=== PATIENT | female | born 1940 | race Caucasian/White ===

== ENCOUNTER 2018-03-24 09:30 | Outpatient (RCR) | payer MEDICARE, SELFPAY ==
--- NOTE | 2018-02-25 08:30 | IE_ITS ---
Date: February 25, 2018 Referring: Dr. 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 Diagnosis: s/p manipulation of right total knee for arthrofibrosis SUBJECTIVE: History of Present Illness: Justine is a 77 year old female s/p manipulation on 02/24/18 secondary to arthrofibrosis via Dr. Quintana. 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 Prior to surgery, pt. walked her dog twice a day around her house and considered herself relatively active. Currently she is doing about half of that walking, and does it with two walking sticks. Pt. has a quad cane, but does not to use it around the house and only takes it outside the house as a precaution. Previous Treatment: Received home health care 2x per week. Outpatient PT 2x week Social: Pt. is retired and lives in a single level home with her and their dog. PMH: s/p tibial tubercle transfer approx. 50 years ago; h/o hip fx 2014, wrist fx 2007 Falls in the last year: No Reported hospitalizations in the last year -Yes, TKR on 12/07/17 Medications: None other than food supplements: glucosamine, calcium, and multi- vitamin. Oxycodone, and Aleve Quality of Life: Good Standardized Measures: [facility]-46.58% OBJECTIVE: Observation: Pt. has a healed incision over the anterior right knee. There is minimal redness or warmth. Gait: Pt. ambulates with quad cane. She demonstrates minimal heel strike, with bilaterally shorted stride length and decreased trunk rotation.. ROM: Pt. demonstrated 10-80 degrees R knee flexion prior to treatment. Post- mobilization, pt. acheives 5-90 degrees R knee flexion. Joint Accessory Motion: Minor restriction in patellofemoral joint mobility in all planes. Marked hypomobility of the tibiofemoral joint Strength: Pt. demonstrates 4+/5 L hip flexion bilat. Quad strength is 4+/5 bilat by MMT, with good functional strength noted with SLR (no extension lag noted). R hip flexion, bilat. knee flexion, ankle dorsiflexion, and ankle plantarflexion are each 5/5 bilaterally. Treatment: IE: [id number] Patient Education: Discussed appropriate treatment planning and goals, which patient is in agreement with. Manual therapy: ([id number]): Today s treatment consisted of evaluation, followed by aggressive mobilization of the right knee. Patient received PROM to the right knee, with manual stretching into both flexion and extension. She received tibiofemoral joint mobs in seated position, grade IV PA and AP. She also received PF joint mobs. Utilized contract-relax techniques and sustained end range stretching, eventually reaching 90 degrees flexion with firm end feel and reports of significant discomfort. Completed 10 minutes of NuStep L1 for rhythmic ROM. Ended with 10 minutes of cryotherapy to the right knee post session. _X_ Provided skilled manual cues to facilitate proper muscle recruitment and/or movement pattern: Pt. needed verbal and tactile cueing to demonstrate proper technique for her HEP. Direct treatment time: 60 minutes Total treatment time: 70 minutes ASSESSMENT: Patient is a 77 year-old female referred for PT services with the diagnosis of s /p R TKA post manipulation on 02/24/18. Patient presents with clinical signs and symptoms consistent with referring diagnosis, with significant limitations in her ROM. She currently demonstrates the following impairment level findings: - Decreased R knee ROM - pain - Decreased jt. accessory motion of the R patellofemoral and tibiofemoral joint - Gait deficits Impairments are contributing to the following functional limitations: - Difficulty walking > two blocks - Unable to reciprocally manage stairs - Unable to squat Patient is assessed as: Low [id number], based on the following: History: (list): 77-year old female, 5 weeks s/p right TKA with marked ROM restrictions and continued deficits in functional mobility. Examination: (list): See above for functional limitations and impairments. Presentation: Stable Decision-Making: Low complexity Disability based on AMPAC 46.58% Patient requires skilled PT intervention to remediate the above functional limitations to return to: __X_ Premorbid level of function __X__ Return to full functional mobility __X__ Improve QOL Prognosis: Good G-Codes (fill in modifier after appropriate code): Patient's primary functional limitation is in the category of: __[X]__ Mobility - walking and moving around : [id number], based on [facility] Projected goal: __[X]__ Mobility - walking and moving around: [id number], to allow for continued age related deficits. KX modifier to be utilized as justified by above documentation for necessity of continued Physical Therapy intervention to attend to functional deficits which have not been fully remediated as they approach their Medicare cap. STG: __4__ weeks. 1. Increase knee flexion ROM to >105 degrees to allow for improved stair management 2. Improve overall function as demonstrated by LEFS <40% deficit 3. Increase knee extension to 0 degrees to diminish gait deficits LTG: __8__ weeks. 1. Return to premorbid level of function. 2. Return to full, pain-free, functional mobility. 3. Independent with self-maintenance program. 4. Improve overall function as noted by LEFS score <20% deficit PLAN: Patient to be seen daily x 1 week, adjusting frequency of visits per patient symptoms and response to treatment. Treatment to include: [X] Manual therapy [id number]: Patient to receive aggressive mobilization of the right knee, including joint mobs to the PF and tibiofemoral joints, manual stretching, and PROM. Will likely incorporate use of IASTM to address soft- tissue dysfunction and flexibility, as well. [X] Therapeutic exercise 31769: Patient to be instructed in a progressive therex program for both open and closed chain strengthening, as well as self- mobilization techniques. Will consider introduction of aquatic therapy for both strengthening and gait training as she progresses out post-operatively. Thank you for this referral. Please do not hesitate to contact me with any questions or concerns regarding this patient's plan of care. Janel Nelson,MPT
--- NOTE | 2018-02-26 08:30 | PTTR_ITS ---
DATE: 02/26/18 SUBJECTIVE: Indicated she is really trying to keep her right knee moving. OBJECTIVE: Manual therapy: ([id number]). Mobilization of right pat-fem and tib-fem jts while in seated and supine position. Utilized hold relax with stretching into flexion and extension. AROM pre mobilization was approximately 13 degrees extension to 85 degrees flexion. Post mobilization patient was able to achieve AAROM of 5 degrees extension to 98 degrees flexion. Performed soft tissue stretching of hamstrings, IT bands and quad / hip flexors while in modified Jeff test position for 3 to 5 reps each for 20 - 30 seconds. Therapeutic procedures ([id number]). * x HEP review: Reviewed self stretching of calf, hamstrings and use of IT band stretching. Did 5 minutes on NuStep prior to mobilization. * x Provided skilled instruction in proper exercise performance * x Provided skilled manual cues to facilitate proper muscle recruitment and/ or movement pattern * Cryotherapy x 10 minutes to right knee while in supine with leg on wedge pillow. Direct treatment time: 50 minutes Total treatment time: 60 minutes
--- NOTE | 2018-02-27 14:25 | PTTR_ITS ---
DATE: 02/27/18 SUBJECTIVE: Pt reports feeling stiff, swollen, although not in much pain. OBJECTIVE: Manual therapy: (68843d6). With pt short-sitting EOB, AP/PA glides to tibiofemoral joint. Overpressure into flexion. Traction and quad/hamstring METs applied to facilitate flexion. Flexion measured at 94. Pt moved to supine , patella mobilized into all planes. Hamstring stretch applied. STM, petrissage to quads to calm them down. Traction, overpressure into extension. Approximately -5 in extension. 90/90 position to continue progress into flexion. Ends with 8 minutes NuStep for ROM, 10 minutes ice pack (no charge). Direct treatment time: 45 minutes Total treatment time: 63 minutes
--- NOTE | 2018-02-28 11:46 | PTTR_ITS ---
DATE: 02/28/18 SUBJECTIVE: Gricelda was initially seen by Elodia Espitia PTA today. She then completed 10 minutes on the stationary bike, prior to being seen by myself for further mobilization. She states that she is using a mini bike several times throughout the day in an effort to improve her motion. She has discontinued her quadruped stretch, stating she's afraid that it will damage her left knee. OBJECTIVE: Manual therapy: ([id number]): Began with assistance on stationary bike x 5 minutes. Patient performed 5 minutes of rocking, then received assistance into full revolutions, which she tolerated for an additional 5 minutes. She then received aggressive stretching into flexion, using contract-relax techniques and sustained stretching. She received patella mobilizations and grade III AP tibiofemoral joint mobs. She eventually tolerated 102 degrees flexion We reviewed stair stretch, where patient tolerates only about 85 degrees independently. Direct treatment time: 30 minutes Total treatment time: Additional time spent with Elodia Espitia PTA, as well as 5 unattended minutes on stationary bike.
--- NOTE | 2018-02-28 12:14 | PTTR_ITS ---
DATE: 02/28/18 SUBJECTIVE: Pt reports feeling extremely stiff today. OBJECTIVE: Manual therapy: ([id number]). With pt short sitting EOB, AP/PA glides to tibiofemoral joint. Stretch into knee flexion. METs to quad and hamstring to facilitate extension. Pt transitioned to prone, dynamic PA mobilization through knee flexion range. Pt transitioned to supine, 90/90 knee flexion applied. Seated, knee flexion measured at 97 degrees. Pt into supine, patella mobilized into all planes. Overpressure applied into knee extension. Pt still lacking approx 5 degrees extension. Pt went to Bike for ROM. After our session, pt was seen by Isa Dickinson DPT. Please see her note for specifics. Direct treatment time: 30 minutes Total treatment time: 30 minutes
--- NOTE | 2018-03-01 14:58 | PTTR_ITS ---
DATE: 03/01/18 OBJECTIVE: Co-treatment with Kandis Loja PTA. Please see her note for specifics. Manual therapy: ([id number]). Further mobilize right knee into flexion. Perform AP/PA glides in seated position and in loose packed position in supine. Perform oscillations at end ranges of flexion and prolong stretching where she tolerates 90 degrees. In supine apply patellar glides in all planes and overpressure stretching into knee extension to -5 degrees. Manual hamstring stretching applied. Pt finished with ice and elevation x 10 minutes. Pt notes being quite sore after today's session. Direct treatment time: 15 minutes Total treatment time: 15 minutes Elodia Espitia PTA
--- NOTE | 2018-03-01 15:43 | PTTR_ITS ---
DATE: 03/01/18 SUBJECTIVE: Pt reports that she is sore and stiff today. OBJECTIVE: Co Treatment with EJ Sharp Manual therapy: ([id number]). Pt received mobilization to the knee while seated with legs over plinth into knee flexion utilizing muscle energy techniques to increase knee flexion ROM. Pt was able to complete 85 degrees knee flexion. Pt was resisting throughout her ROM and required cueing to relax. Therapeutic procedures (08277s). * X Other: Pt completed 10 min on the stationary bike. Direct treatment time: 15 Total treatment time: 30
--- NOTE | 2018-03-02 15:15 | PTTR_ITS ---
DATE: 03/02/18 SUBJECTIVE: Pt reports feeling very sore today. Before start of session, used NuStep x5 minutes to warm up knee joint, reports that it feels a little looser now than when she walked in. OBJECTIVE: Manual therapy: ([id number]). With pt seated EOB, AP/PA glides to tibiofemoral joint. Stretch with overpressure into knee flexion. Pt turned to supine, AP/ PA glides to tibiofemoral joint in loose packed position. 90/90 stretch into knee flexion. Pt returned to short-sitting, stretched into knee flexion with METs applied to hamstrings and quads, measured at 90 degrees flexion with hard end feel and notable discomfort. Pt spent 5 minutes on stationary bike for ROM purposes. Returned to supine for mobilization into extension, including joint unloading and overpressure. Pt was -8 degrees knee extension today. Direct treatment time: 35 minutes Total treatment time: 35 minutes
--- NOTE | 2018-03-03 10:01 | PTTR_ITS ---
DATE: 03/03/18 SUBJECTIVE: Justine states that she is continuing to feel stiff. She feels that the weather is a big contributor to her symptoms. She has not been performing stationary biking as we discussed at her previous visits and continues to use the mini-peddler as she feels that this better mobilizes her knee. She has discontinued her quadruped stretching as well, and is instead performing stair stretch and sustained stretching into extension. She has questions today regarding alternative treatments such as hypnosis, etc... OBJECTIVE: Manual therapy: ([id number]).Today's treatment consisted of aggressive mobilization of the R knee. Pt begins at about 85 degrees of knee flexion after warming up on the NuStep.She was mobilized into flexion with sustained stretching, incorporating patella mobilizations and grade IV AP tibiofemoral joint mobilizations. She also received manual quad stretching in prone position.Back in supine, utilized contract/relax techniques, where I am eventually able to stretch her to 103 degrees actively. Pt is then able to flex to about 85 degrees. She ended with stationary biking, where she requires manual assist to get full revolutions. She is able to continue this independently x 7 min. Direct treatment time: 30 min Total treatment time: 40 min Assessment/Plan: Pt is continuing to have a significantly tight knee. I attempted call to Dr. Quintana's office, although he is out of the office until next week. Will send a copy of this note over and re-attempt to call next week. SS/fw
--- NOTE | 2018-03-06 14:25 | PTTR_ITS ---
DATE: 03/06/18 SUBJECTIVE: Gricelda stating that she continues to be quite sore. She blames the humidity for her discomfort today. OBJECTIVE: Manual therapy: ([id number]). Pt completes six minutes of Nustep prior to being seen by me today. She receives aggressive mobilization into flexion. Perform AP/ PA mobilizations in seated position, prolong stretching into end ranges of flexion, utilizing MET's to increase ROM. Perform quad stretching in prone position and then stretch her in the 90/90 position for knee flexion. Provide patellar glides in all planes with good mobility noted. Perform brief distal quad desensitization massage followed by further stretching into knee flexion to 98 degrees and end range discomfort. Ends with bicycle x 10 minutes and receipt of unattended ice and elevation. Direct treatment time: 30 minutes Total treatment time: 60 minutes Elodia Espitia, WIG DRESSER
--- NOTE | 2018-03-08 11:00 | PTTR_ITS ---
DATE: 03/08/18 SUBJECTIVE: Gricelda states that her knee continues to feel stiff. She does not feel as though she is making significant progress and hopes to avoid PT next week when she will have her daughter visiting. She does have questions about treatment she read about on line including electric stim, massage, etc. . . Manual therapy: ([id number]). Patient received aggressive mobilization of the R knee. She begins with 85 degrees flexion with firm end feel, and significant guarding. She received patella mobilizations and grade 3 AP and PA tibiofemoral joint mobilizations where she continues to have significant joint restriction noted. Utilized contract/relax techniques and sustained stretching into flexion, also performed manual quad stretching in prone where she tolerates only 90 degrees. She then received IASTM for down regulation through the quad followed by further mobilization into flexion with use of contract/ relax techniques. She eventually tolerates 110 degrees with significant end range pain and firm end feel. Direct treatment time: 45 mins Total treatment time: 55 mins 10 mins spent in supervised biking. SS/dl
--- NOTE | 2018-03-10 09:00 | PTTR_ITS ---
DATE: 03/10/18 SUBJECTIVE: Gricelda states that her knee is feeling significantly looser. She feels like she's turning a corner. She came in early and did 8 minutes of stationary biking with full forward revolutions prior to her appointment today. OBJECTIVE: Manual therapy: ([id number]): Gricelda begins with 106 degrees of knee flexion. She received aggressive mobilization, beginning with gentle stretching into flexion , followed by patella mobs through all planes, grade IV AP tibiofemoral mobs in loose packed position, and sustained quad stretching in prone. She received IASTM for down-regulation of the quads on the right, followed by further stretching. Utilized contract-relax techniques, where she eventually tolerates 112 degrees. She was then stretched into extension, ending with -5. Direct treatment time: 30 minutes Total treatment time: 38 minutes
--- NOTE | 2018-03-13 15:19 | PTTR_ITS ---
DATE: 03/13/18 SUBJECTIVE: Justine reports that she has been very busy around her home this weekend getting ready for company to come. She has been standing, cleaning and moving around and she felt a little sore from this. OBJECTIVE: Manual therapy: ([id number]). Begin with pt in the seated position and perform tibiofemoral joint mobilizations, stretching into knee flexion utilizing muscle energy techniques. In supine provide IASTM down regulation through the quadriceps on the (R) followed by patellar glides in all planes. Stretch her into the 90/90 position into knee flexion, transition back to the seated position for continued stretching into flexion where she tolerates 108*. In supine I can get her to -5* of knee extension. Pt did perform the bicycle x 10 minutes prior to seeing me making full revolutions. She ends with ice x 10 minutes. Direct treatment time: 30 minutes Total treatment time: 50 minutes
--- NOTE | 2018-03-17 14:47 | PTTR_ITS ---
DATE: 03/17/18 SUBJECTIVE: Pt stating she is doing well today. She has been stretching her knee over the last few days off she has had. She did finally make it around on her stationary bike at home. OBJECTIVE: Pt performs 10 minutes of stationary cycling prior to seeing me today making full revolutions. Manual therapy: ([id number]). AP/PA tibiofemoral joint mobs performed right LE. IASTM down regulation techniques performed to the quadriceps in a stretched and slack position. Overpressure stretching, MET's into knee flexion in seated and supine positions. She easily tolerates 100 degrees and with overpressure stretching can achieve 105 degrees with hard end feel and end range discomfort. Patellar glides performed and light stretching into extension to -5 degrees. Direct treatment time: 30 minutes Total treatment time: 40 minutes Elodia Espitia, REDYE HAND
--- NOTE | 2018-03-20 11:03 | PTTR_ITS ---
DATE: 03/20/18 SUBJECTIVE: Justine notes that she is sick of her knee hurting her all the time. She states she was stiff getting up this morning and has had a hard time loosening up this morning. OBJECTIVE: Pt performs stationary bicycle x 10 minutes prior to seeing me today making full revolution. Manual therapy: ([id number]). Initial R knee AROM measurements: 10-90 degrees Perform AP/PA tibiofemoral glides, MET's to the quads and hamstrings. IASTM down regulation performed to the quadriceps followed by extensive stretching into knee flexion in the seated and supine positions. Patellar glides performed and overpressure stretching into knee extension. Post mobilization PROM: 5-102 degrees right knee with hard end feel. Direct treatment time: 30 minutes Total treatment time: 40 minutes Elodia Espitia, DATA ENTRY ANALYST
--- NOTE | 2018-03-22 09:21 | PN_ITS ---
DATE: 03/22/18 REFERRING: Dr. 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 She's been participating in PT interventino 2-3x/week as her schedule allows. LEFS: 52% deficit, with patient commenting N/A on multiple activities with the written comment Want to keep my other knee. OBJECTIVE: Posture: In static standing, patient lacks 5 degrees TKE on the right. Gait: (indicate right or left deficits): Continued antalgia, lacking right TKE , with associated limitations in heel strike on the right. ROM: Mobilizes to -3 degrees extension and up to 110 degrees flexion. Joint accessory motion: * x Hypomobile (indicate joint/direction): right tibiofemoral and patellofemoral joints * End feel: x Capsular Hard Empty Crepitus Soft tissue Treatment: Please see treatment note from Elodia Espitia PTA. No additional treatment was provided on this date. ASSESSMENT: Patient receiving aggressive mobilization 2-3x/week. Since decreasing visit frequency, she has tolerated treatments much better and has made more significant gains in ROM. Will continue with manual therapies for an additional 2 weeks, then begin weaning patient back down in frequency. x Patient requires continued skilled Physical Therapy intervention to remediate the above functional limitations to return to: * x Premorbid level of function. * x Full functional mobility. * x Return to work demands. * x Improve quality of life. * Other (indicate): [] G-Codes (add modifier after appropriate code): Patient's primary functional limitation is in the category of: * x Mobility - walking and moving around : [id number] Present status determined by (SM or other justification): LEFS score of 52% deficit Projected goal: [id number] KX modifier to be utilized as justified by above documentation for necessity of continued Physical Therapy intervention to attend to functional deficits which have not been fully remediated as they approach their Medicare cap. ST weeks. 1. Increase knee flexion ROM to >105 degrees to allow for improved stair management (met) 2. Improve overall function as demonstrated by LEFS <40% deficit (Progressing toward) 3. Increase knee extension to 0 degrees to diminish gait deficits (not met) LTG: __8__ weeks. 1. Return to premorbid level of function. (progressing toward) 2. Return to full, pain-free, functional mobility. (progressing toward) 3. Independent with self-maintenance program. (progressing toward) 4. Improve overall function as noted by LEFS score <20% deficit (progressing toward) Goal progression: (copy/paste from IE or last PN). PLAN: Patient to continue treatment, 2-3 x per week, for 2 weeks,then begin weaning down in frequency, with need for additional 6 weeks of intervention as we progress toward an independent self-management program.
--- NOTE | 2018-03-22 10:30 | PTTR_ITS ---
DATE: 03/22/18 SUBJECTIVE: Pt stating she is doing okay today. She feels like she is walking better each day but her knee continues to get sore with very little activity. OBJECTIVE: Pt performs 10 minutes of stationary cycling prior to seeing me today. Manual therapy: ([id number]). TF joint mobilizations performed in seated position. Overpressure stretching into knee flexion with oscillations at end ranges to approx. 105 degrees with end range discomfort and hard end feel. PF joint mobs, overpressure stretching into knee extension to -5 degrees. Knee flexion stretching in both 90/90 position and PKB position. Direct treatment time: 30 minutes Total treatment time: 40 minutes Elodia Espitia, SOLID GLASS ROD DOWEL MACHINE OPERATOR
--- NOTE | 2018-03-24 12:20 | PTTR_ITS ---
DATE: 03/24/18 SUBJECTIVE: Pt notes being sore and achy. She states she had a hard time sleeping last night due to discomfort in her knee. She did end up taking a Tylenol this morning and she is not sure if this has helped yet. OBJECTIVE: Pt completes 10 minutes of stationary cycling making full revolutions prior to seeing me today. Manual therapy: ([id number]): Seated TF joint mobs, MET's and prolong overpressure stretching into knee flexion to 102 degrees, hard end feel. Prone knee flexion/quad stretching to approx. 90 degrees. PF joint mobs in all planes, overpressure stretching into knee extension to -5 degrees. Desensitization massage provided distal quadriceps. Encouraged continued ROM/stretching exercises at home. Direct treatment time: 30 minutes Total treatment time: 40 minutes Elodia Espitia, SCALE AGENT
== END 2018-03-24 23:59 | disposition home or self-care (01) ==
LOC: PT 09:30
PROVIDERS: PCP Family Medicine; Referring Provider Orthopaedic Surgery; Visit Provider Orthopaedic Surgery
DX: Z47.1 Aftercare following joint replacement surgery (principal); Z96.651 Presence of right artificial knee joint
CPT/HCPCS: 97140; 97161; 97530

== ENCOUNTER → 2018-05-09 10:25 | Outpatient (BNVA) | payer MEDICARE, OTHER, SELFPAY | PROVIDERS: Visit Provider Orthopaedic Surgery | DX: Z47.1 Aftercare following joint replacement surgery (principal); Z96.651 Presence of right artificial knee joint | CPT/HCPCS: 99211; 99213 ==

== ENCOUNTER → 2018-05-30 10:38 | Outpatient (BNVA) | payer MEDICARE, OTHER, SELFPAY | PROVIDERS: PCP Family Medicine; Visit Provider Orthopaedic Surgery | DX: M17.12 Unilateral primary osteoarthritis, left knee (principal) | CPT/HCPCS: 20610; 99211; 99213; J7325 ==

== ENCOUNTER → 2018-12-05 11:17 | Outpatient (BNVA) | payer MEDICARE, OTHER, SELFPAY | PROVIDERS: PCP Family Medicine; Referring Provider Family Medicine; Visit Provider Orthopaedic Surgery | DX: M17.12 Unilateral primary osteoarthritis, left knee (principal); Z96.651 Presence of right artificial knee joint | CPT/HCPCS: 20610; 99211; 99212; J7325 ==

== ENCOUNTER → 2019-07-02 14:34 | Outpatient (BNVA) | payer MEDICARE, OTHER, SELFPAY | PROVIDERS: PCP Family Medicine; Referring Provider Family Medicine; Visit Provider Student in an Organized Health Care Education/Training Program | DX: M17.12 Unilateral primary osteoarthritis, left knee (principal); Z96.651 Presence of right artificial knee joint | CPT/HCPCS: 99214 ==

== ENCOUNTER 2021-04-07 20:13 | Emergency (ER) | payer MEDICARE, OTHER, SELFPAY ==
--- NOTE | 2021-04-07 20:00 | DI.CT_ITS ---
Exam(s) CT HEAD CERVICAL SPINE WO EXAM: CT HEAD CERVICAL SPINE WO CLINICAL HISTORY: fall, etoh, hit head posterior scalp. TECHNIQUE: Imaging Protocol: Axial computed tomography images with coronal and sagittal reformatted images were created and reviewed COMPARISON: No exams were available for comparison FINDINGS: CT Head: Ventricles and Extra axial spaces: Normal in size and morphology for the patient's age. Hemorrhage: None. Cerebral parenchyma: No evidence of acute territorial infarct. There are areas of decreased attenuat ion in the white matter most consistent with chronic microvascular ischemic change. Midline shift: None. Brainstem/Cerebellum: Normal. Calvarium: Normal. Visualized Paranasal sinuses/Mastoids: There is mild mucosal thickening in the right maxillary sinus. The remaining visualized paranasal sinuses and mastoid air cells are clear. Soft Tissues: Unremarkable. CT Cervical Spine: Bones: No acute fracture or subluxation. There are degenerative changes seen in the cervical spine. Soft Tissues: Unremarkable. Lung Apices: Clear. Thyroid gland: Unremarkable. IMPRESSION: 1. No acute intracranial process. 2. No acute fracture or subluxation in the cervical spine. RADIATION DOSE DELIVERED: 1,206.9mGy.cm Total DLP DATA REPOSITORY: All CT scans at this facility are submitted to the National Radiology Data Registry (NRDR) Dose Index Registry (DIR) with the [employer] (ACR). RADIATION OPTIMIZATION: All CT scans at this facility use at least one of these dose optimization te chniques: automated exposure control; mA and/or kV adjustment per patient size (includes targeted exa ms where dose is matched to clinical indication); or iterative reconstruction.
[2021-04-07 20:10] VITALS: BP 171/95; PULSE 68; RESP 18; TEMP 36.5; O2SAT 95
--- NOTE | 2021-04-07 20:13 | ED.GENADUL_ITS ---
Discharge Plan Disposition Patient Disposition: HOME Condition: Good Discharge Details Clinical Impression: Fall, Laceration of scalp Primary Care Provider: Ramone Dennison ED Provider: Diego Dunn Home Meds and New Rx's Prescriptions: Continued calcium carb and citrate-vitD3 [Citracal-D3 Slow Release] 1 EACH tablet extended release 1 ea PO BID RF: 0 multivitamin [Daily Multi-Vitamin] 1 EACH tablet 1 tab PO DAILY RF: 0 glucosam-chond ph-xzpdll-ot ac 1 EACH capsule 2 cap PO DAILY RF: 0 aspirin 325 MG tablet 325 mg PO PRN PRNRF: 0 Discharge Instructions Instructions: Staple Care (ED) Additional Instructions: Your CAT scan shows no evidence of bleed or fracture of your head or neck. We did place a single staple in your scalp. This will need to be removed in 7 to 10 days. You can come back here to have it removed. Please keep your head dry for the next 48 hours after which you can wash gently with soap and water. If you notice any worsening of your symptoms, or any new symptoms such as vomiting, diarrhea, fever, chills, shortness of breath, chest pain, numbness, weakness, or fainting , please return immediately to the emergency department for reevaluation. Please follow up with your primary care provider as soon as possible for reassessment and reevaluation. As always, it was a pleasure participating in your medical care today. Referrals: Ramone Dennison [Primary Care Provider] - Medical Decision Making Patient is a 80-year-old female with no significant past medical history except for a patellar replacement years ago, but does take a daily full dose aspirin, presents today for fall after being intoxicated. Patient states she was drinking with her this evening she fell back and hit her head. She recalls the event. She denies any pain anywhere, including her chest, arms, hips, or legs or head or neck for that matter. No other complaints at this time. No other modifying factors. Patient was brought in by EMS and was placed in a c-collar. Physical exam is notably unremarkable for any bony tenderness whatsoever, no midline C-spine thoracic or lumbar spine tenderness, no focal neurologic deficits. Patient does demonstrate evidence of a small 2 cm hematoma versus laceration. We will clean the area to evaluate for need for sutures or gera. We will get a CT scan of the head neck to evaluate for evidence of fracture although I feel this unlikely as there is no tenderness, however the exam is slightly obfuscated by mild intoxication. 9:[address] scan has returned negative for acute process per virtual radiology of the head neck. Repeat neurologic exam is unremarkable. Patient does have evidence of a small bruise on her left arm, but this is nontender otherwise. This was seen on secondary survey. No other signs of significant trauma. The small laceration on her scalp was stapled with a single staple. Patient tolerated this well. Patient stable with no neurologic deficits. Patient stable for discharge to the care of her . Discussed red flags which to return. I have extensively reviewed the treatment plan and discharge instructions with the patient and their family. I have addressed all patient concerns at this time. The patient and family was made aware of what symptoms to monitor for that would warrant a return to the emergency department. Discussed the plan with the mindy ent and family, they demonstrate verbal understanding and agreement with our assessment and plan at this time. The documentation in this chart was dictated using [employer] dictation software. Please excuse any dictation errors. FINDINGS: Brain: Normal. No hemorrhage. Unremarkable white matter. No mass effect. Cerebral ventricles: No ventriculomegaly. Paranasal sinuses: Visualized sinuses are unremarkable. No fluid levels. Mastoid air cells: Visualized mastoid air cells are well aerated. Bones/joints: Unremarkable. No acute fracture. Soft tissues: Unremarkable. IMPRESSION: No acute intracranial abnormality. FINDINGS: Bones/joints: No acute fracture. Normal alignment. Discs/Spinal canal/Neural foramina: No significant disc protrusion. No severe spinal canal stenosis. No significant neural foraminal narrowing. Multilevel degenerative disc disease Lungs: Lung apices are normal. Soft tissues: Unremarkable. IMPRESSION: No acute findings. Thank you for allowing us to participate in the care of your patient. Dictated and Authenticated by: Elke Degroot MD 04/07/2021 8:48 PM Eastern Time ([place] & [place]) HPI General Date/Time Provider Initiated Documentation: 04/07/21 20:49 . HPI Narrative: Patient is a 80-year-old female with no significant past medical history except for a patellar replacement years ago, but does take a daily full dose aspirin, presents today for fall after being intoxicated. Patient states she was drinking with her this evening she fell back and hit her head. She recalls the event. She denies any pain anywhere, including her chest, arms, hips, or legs or head or neck for that matter. No other complaints at this time. No other modifying factors. Patient was brought in by EMS and was placed in a c-collar. Related Data Home Medications Medication Instructions Recorded Confirmed glucosam-chond de-qctves-ec ac 2 cap PO DAILY 12/31/14 04/07/21 multivitamin [Daily Multi-Vitamin] 1 tab PO DAILY 12/31/14 04/07/21 calcium carb and citrate-vitD3 1 ea PO BID 04/08/15 04/07/21 [Citracal-D3 Slow Release] aspirin 325 mg PO PRN PRN 11/28/17 04/07/21 Allergies Allergy/AdvReac Type Severity Reaction Status Date / Time No Known Allergies Allergy Unverified 04/07/21 20:17 Review of Systems All systems reviewed & are unremarkable except as noted in HPI and below PFSH Surgical History Replacement of total knee joint (12/07/17) RIGHT/DR. SHAFER s/p manipulation 02/24/2018 Social History Smoking/Tobacco Use Status: Former Tobacco Use Smoking risk assessment performed?: Yes Drug use: Never Exam Narrative Exam Narrative: 1.Const: Well-nourished, Well-developed, appearing stated age 2.Eyes: PERRL, no conjunctival injection, and symmetrical lids. 3.ENT: Atraumatic external nose and ears. Moist MM. Neck: Symmetric, trachea midline, No thyromegaly. There is no evidence of raccoon eyes, larios sign, CSF rhinorrhea, mastoid tenderness, cranial crepitus, hemotympanum, exophthalmos, or hyphema. Patient demonstrates intact dentition with no signs of tooth avulsion or fracture, no signs of jaw deformity, no evidence of a LeFort's fracture, with an intact palate, nose and orbital region. There is no evidence of a nasal septal hematoma. No proptosis. Jaw closes symmetrically. Airway is clear. 4.CVS: +S1/S2, No murmurs or gallops. Peripheral pulses 2+ and equal in all extremities. Brisk capillary refill in all extremities. 5.RESP: Unlabored respiratory effort. Clear to auscultation bilaterally. No wheezes rales or rhonchi 6.GI: Soft, Nontender/Nondistended, No hepatosplenomegaly. No guarding or rebound. 7.MSK: Normocephalic/Atraumatic, Extremities w/o deformity or ttp No cyanosis or clubbing, Normal movement of all extremities, no midline cervical thoracic or lumbar spine tenderness. No chest wall tenderness. No tenderness palpation of the hip or pelvis. Patient demonstrates excellent movement of the upper and lower extremities. 8.Skin: Warm, Dry. Small 2 cm linear small abrasion versus small laceration of the posterior scalp. 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 Sensation grossly intact, no focal neurologic deficits. 10.Psych: (AAO) x3. Appropriate mood and affect, but mildly intoxicated
[2021-04-07 20:43] LABS: Abs Immature Grans 0.04 10^3/uL (0.0-0.06); Absolute Basophil Count 0.04 10^3/uL (0.0-0.2); Absolute Eosinophil Count 0.05 10^3/uL (0.0-0.7); Absolute Lymphocyte Count 2.49 10^3/uL (1.2-3.4); Absolute Monocyte Count 0.68 10^3/uL (0.1-0.8); Absolute Neutrophil Count 4.73 10^3/uL (1.2-6.7); Basophils % 0.5; Eosinophils % 0.6; HGB 13.1 g/dL (11.2-15.7); Immature Grans % 0.5; MCH 32.4 pg (27.0-33.0); MCHC 33.6 % (32.0-36.0); MCV 96.5 fL (80-95); MPV 9.6 fL (8.0-11.0); Monocytes % 8.5; Neutrophils % 58.9; Nucleated RBC 0 %; Platelet Count 225 10^3/uL (130-400); RBC 4.04 10^6/uL (3.93-5.22); RDW 11.8 % (11.7-14.6); RDW-SD 41.7 fL; WBC 8.03 10^3/uL (4.4-10.8)
--- NOTE | 2021-04-07 20:48 | DI.VRAD_ITS ---
PROCEDURE INFORMATION: Exam: CT Head Without Contrast Exam date and time: 04/07/2021 8:13 PM Age: 80 years old Clinical indication: Injury or trauma; Blunt trauma (contusions or hematomas); Consciousness not specified; Injury date: 04/07/21; Injury details: Fall, ETOH, hit head posterior scalp TECHNIQUE: Imaging protocol: Computed tomography of the head without contrast. Radiation optimization: All CT scans at this facility use at least one of these dose optimization techniques: automated exposure control; mA and/or kV adjustment per patient size (includes targeted exams where dose is matched to clinical indication); or iterative reconstruction. COMPARISON: No relevant prior studies available. FINDINGS: Brain: Normal. No hemorrhage. Unremarkable white matter. No mass effect. Cerebral ventricles: No ventriculomegaly. Paranasal sinuses: Visualized sinuses are unremarkable. No fluid levels. Mastoid air cells: Visualized mastoid air cells are well aerated. Bones/joints: Unremarkable. No acute fracture. Soft tissues: Unremarkable. IMPRESSION: No acute intracranial abnormality. PROCEDURE INFORMATION: Exam: CT Cervical Spine Without Contrast Exam date and time: 04/07/2021 8:13 PM Age: 80 years old Clinical indication: Injury or trauma; Blunt trauma (contusions or hematomas); Consciousness not specified; Injury date: 04/07/21; Injury details: Fall, ETOH, hit head posterior scalp TECHNIQUE: Imaging protocol: Computed tomography images of the cervical spine without contrast. Radiation optimization: All CT scans at this facility use at least one of these dose optimization techniques: automated exposure control; mA and/or kV adjustment per patient size (includes targeted exams where dose is matched to clinical indication); or iterative reconstruction. COMPARISON: No relevant prior studies available. FINDINGS: Bones/joints: No acute fracture. Normal alignment. Discs/Spinal canal/Neural foramina: No significant disc protrusion. No severe spinal canal stenosis. No significant neural foraminal narrowing. Multilevel degenerative disc disease Lungs: Lung apices are normal. Soft tissues: Unremarkable. IMPRESSION: No acute findings. Dictated and Authenticated by: Elke Degroot MD. Ordering:KHALIF Cortez MD
[2021-04-07 21:10] VITALS: BP 142/71; PULSE 71; RESP 18; O2SAT 96
== END 2021-04-07 21:16 | disposition home or self-care (01) ==
LOC: ER 04-08 00:01
PROVIDERS: Emergency Provider Student in an Organized Health Care Education/Training Program; PCP Family Medicine
DX: S01.01XA Laceration without foreign body of scalp, initial encounter (principal); W01.190A Fall on same level from slipping, tripping and stumbling with subsequent striking against furniture, initial encounter
CPT/HCPCS: 36415; 99284; 70450; 72125; 85025; 99283

== ENCOUNTER 2022-06-04 16:29 | Inpatient (IN) | payer MEDICARE, OTHER, SELFPAY ==
[2022-06-04] VITALS (12 sets, daily range): BP systolic 154–178; BP diastolic 74–86; PULSE 61–104; RESP 14–21; TEMP 36.3; O2SAT 92–98
--- NOTE | 2022-06-04 16:30 | RT.EKG_ITS ---
APPROVED REPORT Exam: Resting ECG Reason for Exam: syncope Patient Location: E HR:74 bpm ECG Measurements Heart Rate 74 AXIS IA 168 P 7 QRSd 91 QRS -38 QT 441 T 65 QTc 491 Conclusion Sinus rhythm...normal P axis, V-rate 60- 99 Left axis deviation...QRS axis (-30,-90) sinus rhythm, left axis
--- NOTE | 2022-06-04 16:45 | DI.CT_ITS ---
Exam(s) CT HEAD WO EXAM: CT HEAD WO CLINICAL HISTORY: Fall, Syncope,. TECHNIQUE: Imaging Protocol: Axial computed tomography images with coronal and sagittal reformatted images were created and reviewed COMPARISON: CT CT HEAD CERVICAL SPINE WO from 04/07/2021 FINDINGS: There are no skull fractures. There is no fluid in the visualized paranasal sinuses. There is no evidence of intracranial hemorrhage, mass effect, or shift of midline structures. There are no extra-axial fluid collections. The ventricles are not enlarged or shifted and there is no blo od within the ventricular system nor within the basal cisterns. IMPRESSION: No acute intracranial findings on this noninfused CT scan of the brain. No significant change compared to prior CT scan of 04/07/2021. RADIATION DOSE DELIVERED: 720.56mGy.cm Total DLP DATA REPOSITORY: All CT scans at this facility are submitted to the National Radiology Data Registry (NRDR) Dose Index Registry (DIR) with the [employer] (ACR). RADIATION OPTIMIZATION: All CT scans at this facility use at least one of these dose optimization te chniques: automated exposure control; mA and/or kV adjustment per patient size (includes targeted exa ms where dose is matched to clinical indication); or iterative reconstruction.
--- NOTE | 2022-06-04 16:54 | ED.GENADUL_ITS ---
Discharge Plan Disposition Patient Disposition: [facility] INPATIENT Condition: Serious Discharge Details Clinical Impression: Elevated troponin, Syncope Admit Date/Time: 06/04/22 21:24 Admit Provider: Kwabena Treadwell Attending Provider: Kwabena Treadwell Primary Care Provider: Ramone Dennison ED Provider: Miguelina Pastor Discharge Data Discharge Date/Time-TO BE ENTERED AT DEPARTURE: 06/04/22 22:09 Medical Decision Making 81-year-old female presents via EMS with chief complaint of fall unknown if this is a syncopal episode however patient reports being dizzy and confused earlier today while at the grocery store. She does not remember falling she reports that she may have been feeding the dog. She does report room spinning prior to the fall. EMS report left sided weakness which is since resolved upon arrival. Work-up ordered including cardiac work-up including EKG, head CT. EKG was reviewed by [Dr. Krishna Ma] ER attending, old EKG available for review no STEMI please see official report. CBC shows no leukocytosis, CMP largely within normal limits glucose is 140, alk phos 40 initial troponin within normal limits. Urinalysis is pending. Patient did get up to the bedside commode however we were not able to obtain a urine sample at this time. CT head is negative for any acute abnormality at this time. Patient remains hemodynamically stable alert and oriented. 2020: Repeat troponin came back positive at 86 we will redraw to confirm. Repeat EKG is unchanged at this time. Patient reevaluation, she reports that upon getting into the wheelchair she was continuing to get dizzy. This does make me suspect cardiac in origin is the reason for her falls. 324 mg of chewable aspirin ordered. Patient is willing to stay in the hospital if needed. 2037: Spoke with Dr. Treadwell who is on for hospitalist regarding patient case and details. He will confirm bed availability and call back regarding acceptance. 2041: Dr. Treadwell accepts patient for admission, Discussed plan with patient, verbalized understanding and is in agreement with plan. Medical Records Medical records reviewed: Yes I reviewed the patient's medical records. Imaging Data Radiologic Study: Imaging: CT Scan Radiologist's impression: EXAM: ? CT HEAD WO CLINICAL HISTORY: ? Fall, Syncope,. ? TECHNIQUE:? Imaging Protocol: Axial computed tomography images with coronal and sagittal reformatted images were created and reviewed COMPARISON:? CT CT HEAD ? CERVICAL SPINE WO from 04/07/2021 FINDINGS: There are no skull fractures. There is no fluid in the visualized paranasal sinuses. There is no evidence of intracranial hemorrhage, mass effect, or shift of midline structures.? There are no extra-axial fluid collections.? The ventricles are not enlarged or shifted and there is no blood within the ventricular system nor within the basal cisterns. IMPRESSION: No acute intracranial findings on this noninfused CT scan of the brain. No significant change compared to prior CT scan of 04/07/2021. Lab Data Lab results reviewed: Yes I reviewed the patient's lab results. Labs: Laboratory Tests Range/Units 06/04/22 06/04/22 17:05 17:05 WBC (4.4-10.8) 10^3/uL 7.19 RBC (3.93-5.22) 10^6/uL 3.96 Hgb (11.2-15.7) g/dL 13.0 Hct (36.0-46.0) % 39.1 MCV (80-95) fL 99 H MCH (27.0-33.0) pg 32.8 MCHC (32.0-36.0) % 33.2 RDW (11.7-14.6) % 11.7 Plt Count (130-400) 10^3/uL 230 MPV (8.0-11.0) fL 9.7 Immature Gran % 0.3 Neutrophils % 65.6 Lymphocytes % 25.5 Monocytes % 7.4 Eosinophils % 0.8 Basophils % 0.4 Nucleated RBC % (0.0-0.3) % 0.0 Absolute Neutrophils (1.2-6.7) 10^3/uL 4.72 Absolute Lymphocytes (1.2-3.4) 10^3/uL 1.83 Absolute Monocytes (0.1-0.8) 10^3/uL 0.53 Absolute Eosinophils (0.0-0.7) 10^3/uL 0.06 Absolute Basophils (0.0-0.2) 10^3/uL 0.03 Sodium (136-145) mmol/L 138 Potassium (3.5-5.1) mmol/L 3.5 Chloride (98-107) mmol/L 101 Carbon Dioxide (21.0-32.0) mmol/L 28.7 Anion Gap (3-11) mmol/L 8.3 BUN (7-18) mg/dL 13 Creatinine (0.55-1.02) mg/dL 0.7 Est GFR (CKD-EPI 2020) (mL/min/1.73m2) 87.92 Glucose (74-106) mg/dL 140 H Calcium (8.5-10.1) mg/dL 8.9 Magnesium (1.8-2.4) mg/dL 1.9 Total Bilirubin (0.2-1.0) mg/dL 0.8 AST (15-37) U/L 22 ALT (14-59) U/L 16 Alkaline Phosphatase (46-116) U/L 40 L Troponin I (<or=60) ng/L < 50 Total Protein (6.4-8.2) g/dL 7.4 Albumin (3.4-5.0) g/dL 4.3 HPI General Mode of arrival: EMS . Date/Time Provider Initiated Documentation: 06/04/22 16:35 . Limitations to Documentation: no limitations . Information obtained by: patient, EMS, RN notes reviewed and old records reviewed . HPI Narrative: 81-year-old female presents to the ER via EMS with a chief complaint of fall. EMS reports left-sided weakness initially which has resolved since. Patient has a small nonsuturable laceration to her left lower lip and some swelling. She is unsure if she became dizzy prior to the fall. She is alert and oriented upon arrival and verbal slightly confused. She is talking about being confused earlier today while at the supermarket. She reports that when she came to the grocery store she could not find her . She reports feeling like the room was spinning prior to her fall. She denies any neck pain denies any chest pain shortness of breath, nausea vomiting diarrhea or problems urinating. Does have a past medical history of knee replacement, osteoarthritis. She does take aspirin daily. No focal neurodeficits noted on exam. Related Data Home Medications Medication Instructions Recorded Confirmed gfsdqpiijz-rvmfuvntpj-kzklagqn-hyalur 2 cap PO DAILY 12/31/14 06/04/22 ac 375 mg-300 mg-175 mg-2 mg cap multivitamin (Daily Multi-Vitamin 1 tab PO DAILY 12/31/14 06/04/22 tablet) calcium carb,cit ER 600 mg-vit D3 1 ea PO BID 04/08/15 06/04/22 12.5 mcg (500 unit) tablet,ext.rel (Citracal-D3 Slow Release) diphenhydramine 25 2 tab PO HS PRN 06/04/22 06/04/22 mg-acetaminophen 500 mg tablet (Tylenol PM Extra Strength) Allergies Allergy/AdvReac Type Severity Reaction Status Date / Time No Known Allergies Allergy Unverified 06/04/22 20:48 General Stated Complaint: Dizzy/Sync LINDSEY: 2 Review of Systems All systems reviewed & are unremarkable except as noted in HPI and below Constitutional Constitutional: Denies headache(s) ENT Ears, Nose, Mouth, and Throat: Reports dizziness and Denies headache(s) Cardiovascular Cardiovascular: Reports syncope Integumentary/Breasts Skin/Breast: Reports wounds Neurologic Neurologic: Reports dizziness, Reports syncope, Denies headache(s) and Reports localized weakness (Resolved) PFSH All Active Problems (Updated 06/04/22 @ 20:50 by Miguelina Pastor NP) Fall (Acute) Laceration of scalp (Acute) Elevated troponin (Acute) Syncope (Chronic) Arthritis of left knee (Chronic) Osteoarthritis of knee (Acute 06/04/14) H/O surgical procedure (Chronic) a. cataract surgery b. 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 SHAFER s/p manipulation 02/24/2018 Social History Smoking/Tobacco Use Status: Former Tobacco Use Smoking risk assessment performed?: Yes Alcohol Intake: current Alcohol Intake frequency: 0-2 drinks per day Drug use: Never Substance use type: does not use Do you feel safe at home: Yes Do you feel safe in your relationship?: Yes Exam Narrative Exam Narrative: Constitutional: Alert and oriented x3. Appears stated age. Normal body habitus. Head: Normocephalic, no trauma. Eyes: Pupils PERRL, Red reflex noted, EOM's intact. Eyelids symmetrical without lesions, discharge, or swelling. ENT: Bilateral TM's WNL, External ear normal to inspection, no mastoid TTP, swelling, or erythema, Nasal turbinates WNL, no nasal discharge. Normal dentition, Posterior pharynx WNL, no exudate. Left lower lip swelling with a small laceration with slow venous oozing. No intraoral trauma noted. Chest: RRR, Normal S1, S2, distal pulses intact. Resp: Lungs clear to auscultation bilaterally, no wheezes, rales, or rhonchi. Abdomen: Soft, non-distended, Normoactive bowel sounds all 4 quads. Musculoskeletal: Unable to assess gait, 5/5 strength to all four extremities. Skin: No suspicious rashes or lesions. Capillary refill less than 2 sec. Neurologic: Cranial nerves II-XII intact. Alert and oriented x 3. Motor: No deficits noted. Sensory: Intact bilaterally all 4 extremities. Reflexes: DTR's intact bilaterally..No pronater drift Hematologic/Lymphatic: No ecchymosis, no lymphadenopathy. [facility] Head images: 1. Small superficial laceration and surrounding soft tissue swelling. Dermabond applied, bleeding controlled. Course Vital Signs Vital signs: Vital Signs Temperature 36.3 C L 06/04/22 16:30 Pulse 74 06/04/22 16:30 Respiratory Rate 16 06/04/22 16:30 Blood Pressure 178/86 H 06/04/22 16:30 Pulse Oximetry 93 06/04/22 16:30 Temperature 36.3 C L 06/04/22 16:30 Temperature Source Oral 06/04/22 16:30 Pulse 74 06/04/22 16:30 Respiratory Rate 16 06/04/22 16:30 Respiratory Effort Non-Labored 06/04/22 16:43 Respiratory Depth Normal 06/04/22 16:43 Respiratory Pattern Normal 06/04/22 16:43 Blood Pressure 178/86 H 06/04/22 16:30 Pulse Oximetry 93 06/04/22 16:30 Oxygen Delivery Method Room Air 06/04/22 16:30 Oxygen Flow Rate 0 06/04/22 16:30 Pain Level 0 06/04/22 16:30
[2022-06-04 17:16] LABS: Abs Immature Grans 0.02 10^3/uL (0.0-0.06); Absolute Basophil Count 0.03 10^3/uL (0.0-0.2); Absolute Eosinophil Count 0.06 10^3/uL (0.0-0.7); Absolute Lymphocyte Count 1.83 10^3/uL (1.2-3.4); Absolute Monocyte Count 0.53 10^3/uL (0.1-0.8); Absolute Neutrophil Count 4.72 10^3/uL (1.2-6.7); Basophils % 0.4; Eosinophils % 0.8; HCT 39.1 % (36.0-46.0); Immature Grans % 0.3; Lymphocytes % 25.5; MCH 32.8 pg (27.0-33.0); MCHC 33.2 % (32.0-36.0); MCV 99 fL (80-95); MPV 9.7 fL (8.0-11.0); Monocytes % 7.4; Neutrophils % 65.6; Platelet Count 230 10^3/uL (130-400); RBC 3.96 10^6/uL (3.93-5.22); RDW 11.7 % (11.7-14.6); RDW-SD 42.6 fL; WBC 7.19 10^3/uL (4.4-10.8)
[2022-06-04 17:28] LABS: ALT 16 U/L (14-59); AST 22 U/L (15-37); Albumin 4.3 g/dL (3.4-5.0); Alkaline Phosphatase 40 U/L (46-116); Anion Gap 8.3 mmol/L (3-11); BUN 13 mg/dL (7-18); Bilirubin, Total 0.8 mg/dL (0.2-1.0); CO2 28.7 mmol/L (21.0-32.0); CREATININE 0.7 mg/dL (0.55-1.02); Calcium 8.9 mg/dL (8.5-10.1); Chloride 101 mmol/L (98-107); Estimated GFR 87.92 (mL/min/1.73m2); Glucose 140 mg/dL (74-106); Magnesium 1.9 mg/dL (1.8-2.4); Potassium 3.5 mmol/L (3.5-5.1); Sodium 138 mmol/L (136-145); Total Protein 7.4 g/dL (6.4-8.2); Troponin I < 50 ng/L (<or=60)
--- NOTE | 2022-06-04 17:56 | DI.VRAD_ITS ---
PROCEDURE INFORMATION: Exam: CT Head Without Contrast Exam date and time: 06/04/2022 5:28 PM Age: 81 years old Clinical indication: Injury or trauma; Blunt trauma (contusions or hematomas) and other: Fall, syncope, TECHNIQUE: Imaging protocol: Computed tomography of the head without contrast. COMPARISON: CT HEAD CERVICAL SPINE WO 04/07/2021 8:35 PM FINDINGS: Brain: No acute intracranial hemorrhage. No mass effect or midline shift. Knight-white matter differentiation is preserved. Moderate volume loss, consistent with age-related cerebral atrophy. Cerebral ventricles: No ventriculomegaly. Paranasal sinuses: Visualized sinuses are unremarkable. No fluid levels. Mastoid air cells: Visualized mastoid air cells are well aerated. Bones/joints: Unremarkable. No acute fracture. Soft tissues: Unremarkable. IMPRESSION: No acute intracranial abnormality. Dictated and Authenticated by: Sulaiman Cook MD. Ordering:SOFYA Mcintyre MD
[2022-06-04 19:13] LABS: Bilirubin Negative (Negative); Blood Negative (Negative); Clarity Clear (Clear); Glucose Negative (Negative); Ketones Negative (Negative); Leukocyte Esterase Negative (Negative); Nitrite Negative (Negative); Specific Gravity 1.015 (1.005-1.025); Urobilinogen 0.2 EU/dL (Up TO 0.2)
--- NOTE | 2022-06-04 19:15 | RT.EKG_ITS ---
APPROVED REPORT Exam: Resting ECG Reason for Exam: repeat trop Patient Location: E HR:63 bpm ECG Measurements Heart Rate 63 AXIS NM 100 P 7 QRSd 86 QRS -34 QT 495 T -18 QTc 507 Conclusion Sinus rhythm...normal P axis, V-rate 60- 99 Probable LVH with secondary repol abnrm...multiple LVH criteria Inferior infarct, old...Q >35mS, II III aVF Prolonged QT interval...QTc >500mS sinus rhythm, left axis
[2022-06-04 20:10] LABS: Troponin I 86 ng/L (<or=60)
[2022-06-04] MEDS: Aspirin 81 MG CHEW 324 MG CH (20:36)
[2022-06-04 20:57] LABS: Troponin I 95 ng/L (<or=60)
[2022-06-04] MEDS: Normal Saline 1,000 ML 125 ML IV (21:15)
[2022-06-04 21:36] LABS: Lab Add On Test DONE
[2022-06-04 21:43] LABS: Source Nasal/Nares
[2022-06-04 21:51] LABS: Hemoglobin A1C 5.4 % (<5.7)
[2022-06-04] MEDS: Enoxaparin 40 MG/0.4 ML SYR SC (22:00)
[2022-06-04 22:19] LABS: COVID-19 PCR Negative (Negative)
--- NOTE | 2022-06-04 23:41 | W.PM.HP.N ---
Date of service: 06/04/22 Time of Service: 23:41 Assessment and Plan Assessment and plan (1) Syncope: Status: Chronic Assessment and plan: Trending troponins. Telemetry. Has had both SVT and nonsustained VTach. Continue beta blockers. Echo ordered. (2) Elevated troponin: Status: Acute Assessment and plan: ?etiology - [facility] [place] cardiology did not feel this was ACS (felt EKG changes were present on the original EKG as well). Cardiology consult. Continue cardiac monitoring. Echocardiogram. Anticipate an outpatient stress test. (3) Nonsustained supraventricular tachycardia: Status: Acute Assessment and plan: Continue metoprolol. Continue telemetry monitoring. Echo with preserved LVEF. (4) Fall: Status: Acute Assessment and plan: PT c/s. (5) QT prolongation: Status: Resolved Assessment and plan: Monitor and follow lytes. Benadryl d/c'ed. Continue cardiac monitoring. . (6) DVT prophylaxis: Status: Deleted Assessment and plan: SC enoxaparin (7) Discharge planning issues: Status: Deleted Assessment and plan: Full code History of Present Illness History of Present Illness Chief Complaint: Confusion, fall. Narrative: Chen is a 81 yo female with a PMH of previous hip fx, knee arthritis. She presented to the ED after a fall at home that occurred after she noted the room spinning. Earlier in the day she was in the grocery store with her and felt dizzy and confused and couldn't find her in the store. EMS reported possibly left-sided weakness initially that had resolved by the time she was in the ED. She denied any CP/palpitations, shortness of air, N/V/diarrhea/abd pain. EKG was unremarkable. CT head negative for acute findings. Initial troponin neg. Repeat was 86. Repeat EKG w/o changes. CBC unremarkable. Lytes and creatinine unremarkable. She did feel dizzy when transferring to the wheelchair. She was given a full strength aspirin. Review of Systems All systems reviewed & are unremarkable except as noted in HPI and below PFSH All Active Problems Lip injury (Acute) Hypomagnesemia (Acute) Acute electrocardiogram changes (Acute) Nonsustained supraventricular tachycardia (Acute) Acute electrocardiogram changes (Acute) Fall (Acute) Laceration of scalp (Acute) Elevated troponin (Acute) Syncope (Chronic) Arthritis of left knee (Chronic) Osteoarthritis of knee (Acute 06/04/14) H/O surgical procedure (Chronic) a. cataract surgery b. 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 SHAFER s/p manipulation 02/24/2018 Social History Smoking/Tobacco Use Status: Former Tobacco Use Smoking risk assessment performed?: Yes Alcohol Intake: current Alcohol Intake frequency: 0-2 drinks per day Drug use: Never Substance use type: does not use Do you feel safe at home: Yes Do you feel safe in your relationship?: Yes Meds Allergies and Home Medications Allergies Allergy/AdvReac Type Severity Reaction Status Date / Time No Known Allergies Allergy Unverified 06/04/22 20:48 Home Medications Medication Instructions Recorded Confirmed Type zoqailrkbb-xniwwdgdhw-thbxpook-hyalur 2 cap PO DAILY 12/31/14 06/04/22 History ac 375 mg-300 mg-175 mg-2 mg cap multivitamin (Daily Multi-Vitamin 1 tab PO DAILY 12/31/14 06/04/22 History tablet) calcium carb,cit ER 600 mg-vit D3 1 ea PO BID 04/08/15 06/04/22 History 12.5 mcg (500 unit) tablet,ext.rel (Citracal-D3 Slow Release) diphenhydramine 25 2 tab PO HS PRN 06/04/22 06/04/22 History mg-acetaminophen 500 mg tablet (Tylenol PM Extra Strength) aspirin 81 mg tablet,delayed 81 mg PO DAILY #30 tabs 06/08/22 Rx release metoprolol tartrate 25 mg tablet 12.5 mg PO BID #30 tabs 06/08/22 Rx potassium chloride 20 mEq 40 meq PO DAILY #30 tabs 06/08/22 Rx tablet,extended release(part/cryst) (Klor-Con M) Exam Narrative Exam Narrative: Pleasant and conversant. Const General: cooperative and no acute distress Nutritional Appearance: thin Orientation: alert and oriented x3 HENMT Head: normocephalic and atraumatic Mouth: lip abnormal (small superficial laceration of upper lip; dermabond applied in ED) Neck Neck: normal visual inspection and full ROM Resp Effort & Inspection: normal respiratory effort Auscultation: clear to auscultation bilaterally Cardio Rate: regular rate Rhythm: regular rhythm Heart Sounds: S1 normal and S2 normal GI Inspection: non-distended Palpation: soft and nontender Neuro General: no focal motor deficits Cranial Nerves: facial strength normal Cognition: normal cognition Speech: speech normal Extrem General: no pedal edema and no calf tenderness Results Labs Result diagrams: 06/06/22 05:16 06/07/22 05:40 Labs: Laboratory Results - last 24 hr 06/04/22 06/04/22 06/04/22 17:05 17:05 17:05 WBC 7.19 RBC 3.96 Hgb 13.0 Hct 39.1 MCV 99 H MCH 32.8 MCHC 33.2 RDW 11.7 Plt Count 230 MPV 9.7 Immature Gran % 0.3 Neutrophils % 65.6 Lymphocytes % 25.5 Monocytes % 7.4 Eosinophils % 0.8 Basophils % 0.4 Nucleated RBC % 0.0 Absolute Neutrophils 4.72 Absolute Lymphocytes 1.83 Absolute Monocytes 0.53 Absolute Eosinophils 0.06 Absolute Basophils 0.03 Sodium 138 Potassium 3.5 Chloride 101 Carbon Dioxide 28.7 Anion Gap 8.3 BUN 13 Creatinine 0.7 Est GFR (CKD-EPI 2020) 87.92 Glucose 140 H Hemoglobin A1c 5.4 Calcium 8.9 Magnesium 1.9 Total Bilirubin 0.8 AST 22 ALT 16 Alkaline Phosphatase 40 L Troponin I < 50 Total Protein 7.4 Albumin 4.3 Urine Color Urine Clarity Urine pH Ur Specific [place] Urine Protein Urine Ketones Urine Blood Urine Nitrite Urine Bilirubin Urine Urobilinogen Ur Leukocyte Esterase Urine Glucose COVID-19 Source SARS-CoV-2 (PCR) 06/04/22 06/04/22 06/04/22 18:50 19:42 20:30 WBC RBC Hgb Hct MCV MCH MCHC RDW Plt Count MPV Immature Gran % Neutrophils % Lymphocytes % Monocytes % Eosinophils % Basophils % Nucleated RBC % Absolute Neutrophils Absolute Lymphocytes Absolute Monocytes Absolute Eosinophils Absolute Basophils Sodium Potassium Chloride Carbon Dioxide Anion Gap BUN Creatinine Est GFR (CKD-EPI 2020) Glucose Hemoglobin A1c Calcium Magnesium Total Bilirubin AST ALT Alkaline Phosphatase Troponin I 86 H* 95 H* Total Protein Albumin Urine Color Yellow Urine Clarity Clear Urine pH 7.0 Ur Specific [place] 1.015 Urine Protein Negative Urine Ketones Negative Urine Blood Negative Urine Nitrite Negative Urine Bilirubin Negative Urine Urobilinogen 0.2 Ur Leukocyte Esterase Negative Urine Glucose Negative COVID-19 Source SARS-CoV-2 (PCR) 06/04/22 21:40 WBC RBC Hgb Hct MCV MCH MCHC RDW Plt Count MPV Immature Gran % Neutrophils % Lymphocytes % Monocytes % Eosinophils % Basophils % Nucleated RBC % Absolute Neutrophils Absolute Lymphocytes Absolute Monocytes Absolute Eosinophils Absolute Basophils Sodium Potassium Chloride Carbon Dioxide Anion Gap BUN Creatinine Est GFR (CKD-EPI 2020) Glucose Hemoglobin A1c Calcium Magnesium Total Bilirubin AST ALT Alkaline Phosphatase Troponin I Total Protein Albumin Urine Color Urine Clarity Urine pH Ur Specific [place] Urine Protein Urine Ketones Urine Blood Urine Nitrite Urine Bilirubin Urine Urobilinogen Ur Leukocyte Esterase Urine Glucose COVID-19 Source Nasal/Nares SARS-CoV-2 (PCR) Negative Last Vital Signs Temp 36.3 C L 06/04/22 16:30 Pulse 104 H 06/04/22 20:01 Resp 17 06/04/22 21:40 BP 154/77 H 06/04/22 20:01 Pulse Ox 92 06/04/22 21:40
[2022-06-05] VITALS (17 sets, daily range): BP systolic 106–162; BP diastolic 57–93; PULSE 57–79; RESP 14–21; TEMP 36.1–37.6; O2SAT 92–96
[2022-06-05 01:29] LABS: Troponin I 99 ng/L (<or=60)
[2022-06-05 06:38] LABS: Anion Gap 5.8 mmol/L (3-11); BUN 8 mg/dL (7-18); CO2 29.2 mmol/L (21.0-32.0); CREATININE 0.6 mg/dL (0.55-1.02); Calcium 8.5 mg/dL (8.5-10.1); Calculated LDL 97 mg/dL (<100); Chloride 103 mmol/L (98-107); Cholesterol 197 mg/dL (<200); Estimated GFR 91.25 (mL/min/1.73m2); Glucose 96 mg/dL (74-106); HDL Cholesterol 89 mg/dL (40-60); Potassium 3.1 mmol/L (3.5-5.1); Sodium 138 mmol/L (136-145); Triglyceride 57 mg/dL (<150)
--- NOTE | 2022-06-05 08:15 | RT.EKG_ITS ---
APPROVED REPORT Exam: Resting ECG Reason for Exam: elevated troponin, near syncope Patient Location: I HR:72 bpm ECG Measurements Heart Rate 72 AXIS LA 168 P 30 QRSd 93 QRS -5 QT 514 T 262 QTc 563 Conclusion Sinus rhythm...normal P axis, V-rate 50- 99 Abnormal T, consider ischemia, diffuse leads...T <-0.20mV, ant/lat/inf Prolonged QT interval...QTc >500mS
--- NOTE | 2022-06-05 08:29 | INITIAL_ITS ---
- If Service Date Differs Date of service: 06/05/22 Time of Service: 08:29 Care Management Initial Assess REASON FOR HOSPITALIZATION:: Vertigo, Elevated Troponin. PAST MEDICAL HISTORY/PAST SURGICAL HISTORY:: All Active Problems: Fall (Acute), Laceration of scalp (Acute), Elevated troponin (Acute), Syncope (Chronic), Arthritis of left knee (Chronic),. Osteoarthritis of knee (Acute 06/04/14), H/O surgical procedure (Chronic): a. cataract surgery, b. unspecified knee and wrist surgery, and Closed left hip fracture (Acute 12/31/14). Surgical History: Replacement of total knee joint (12/07/17) - RIGHT/DR. SHAFER - s/p manipulation 02/24/2018. PREVIOUS FUNCTIONAL STATUS/SOCIAL/FAMILY SUPPORTS:: Justine lives with her , Rob, in [place], [place]. 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 She has one daughter who resides in [place] and 3 step-daughters in [place]. Justine also has a son who just before his 49th birthday from a blood cancer. Justine drives and is independent at baseline. CURRENT FUNCTIONAL STATUS:: Justine is sitting up in bed when CM comes to meet with her. Her , Rob, is present in the room. She is pleasant and talkative. She shares both her mother and grandmother had heart problems and says she shouldn't be surprised that she does to. ADVANCE DIRECTIVES:: On file; Rob Hernandez is appointed as Health Care Agent. Has patient been provided with info about the portal/API?: Yes Did the patient sign up for the portal?: No CODE STATUS:: Full Code INSURANCE COVERAGE / FINANCIAL ISSUES:: [employer] (underwritten by [employer]) and Medicare. CURRENT HOME/COMMUNITY SERVICES/EQUIPMENT:: No home/community services. Patient ambulates independently but has access to a cane, walker, and wheelchair. Her home is equipped with a walk-in bathtub and grab bars. PRIMARY CARE PHYSICIAN:: Ramone Dennison DO. POTENTIAL DISCHARGE NEEDS:: Follow up appointments with PCP and cardiology. PATIENT/FAMILY EDUCATION NEEDS:: Review of discharge instructions including medications and limitations; discuss Ask Me Three. ANTICIPATED BARRIERS TO DISCHARGE:: None identified at this time. TRANSPORTATION:: To be determined by disposition. PLAN:: Justine will have an ultrasound of her heart on Tuesday. The results of the ultrasound will dictate whether she is transferred to [facility] [place] or remains at [facility] for the course of her treatment. Once she is medically cleared, she will discharge home with no services and will follow up with her PCP, cardiology and plan of care as instructed. She will be driven home by her via private vehicle when ready. CM will continue to support Justine and any discharge pl anning needs.
--- NOTE | 2022-06-05 08:43 | NUR.NOTE ---
RN takes this patient over from Jennifer RN, third ICU nurse since said nurse needed to go to OB to handle an emergent situation that will have the OB patient being admitted to ICU.Nursing Note:
--- NOTE | 2022-06-05 08:49 | NUR.NOTE ---
RN sends SNPP message to respiratory therapist to conduct EKG.Nursing Note:
[2022-06-05] MEDS: Potassium Chloride 20 MEQ TABCR PO (08:55)
--- NOTE | 2022-06-05 09:28 | NUR.NOTE ---
Respiratory therapist is taking patient's EKG.Nursing Note:
--- NOTE | 2022-06-05 09:30 | NUR.NOTE ---
White board report given to .Nursing Note:
[2022-06-05] MEDS: POTASSIUM CHLORIDE 20 MEQ/100 ML BAG 50 MEQ IVPB ×2 (10:37→12:44)
--- NOTE | 2022-06-05 10:38 | PT.INNT ---
Date of service: 06/05/22 Time of Service: 10:38 PT Notes Visit Reasons: Vertigo, Elevated Troponin IE on hold due to infarct, per MD communication.
--- NOTE | 2022-06-05 10:53 | NUR.NOTE ---
RN attempts placement of second IV without success.Nursing Note:
[2022-06-05 11:30] LABS: Lab Add On Test DONE
[2022-06-05] MEDS: Aspirin E.C. 81 MG TABEC PO (11:58)
--- NOTE | 2022-06-05 12:09 | W.PM.PROGNOT ---
Date of Service Date of service: 06/05/22 Time of Service: 12:09 Assessment and Plan Assessment and plan (1) Syncope: Status: Chronic Assessment and plan: Given borderline eleveated troponin, EKG changes, concern for underlying ischemia and cardiogenic origin of syncope. Will continue cardiac monitoring, ensure electrolytes are repleted. Consider neurology consult, per cardiology recommendations. (2) Elevated troponin: Status: Acute Assessment and plan: ?etiology - cardiology did not feel this was ACS (felt EKG changes were present on the original EKG as well). Will obtain echocardiogram. Continue cardiac monitoring. (3) Acute electrocardiogram changes: Status: Acute Assessment and plan: Discussed [facility] cardiology, who did not feel this was an ACS. Will continue cardiac monitoring. Obtain echo on Tuesday. (4) Fall: Status: Acute Assessment and plan: PT c/s. (5) Hypokalemia: Status: Acute Assessment and plan: Replete; recheck in am (6) QT prolongation: Status: Acute Assessment and plan: Monitor and replete lytes. D/c benadryl. Continue cardiac monitoring. Cardiology at [facility] [place] doubted that the patient's description of fluttering in her chest was c/w description of a ventricular arrhythmia. (7) DVT prophylaxis: Status: Acute Assessment and plan: SC enoxaparin (8) Discharge planning issues: Status: Acute Assessment and plan: Full code Continues to require hospitalization Subjective Subjective Interval history since last seen: Ms Hernandez states that she has not had any dizziness, chest discomfort, shortness of breath or nausea since arriving to the hospital. She does describe a feeling of fluttering in her chest while in the car yesterday. She states that she sometimes gets this feeling at home. Case was discussed with [facility] [place] [place] cardiology: recommend continued observation on cardiac tech, no addition of heparin or plavix, obtaining echo on Tuesday, and calling back tomorrow to follow up on the patient. Cardiology feels that the patient's EKG changes (T waves inversions) may have been there before - question of lead placement. They do not recommend a stress test at this time. They do not feel that transferring her to a tertiary care facility would result in a different workup this weekend, but to call back tomorrow to discuss the case again. They do not feel that the QTc is as long as reported - closer to 500 ms. It is also felt that the patient's description of dizziness and chest fluttering are not consistent with a ventricular arrhythmia. Exam Narrative Exam Narrative: General: Pleasant female who looks younger than her stated age, A&Ox3, NAD HEENT: EOMI, MMM Heart: RRR, no m/r/g Lungs: CTAB Abdomen: soft, nontender, nondistended Extremities: no edema BLEs Objective Last Vital Signs Temp 36.6 C 06/05/22 10:49 Pulse 64 06/05/22 10:49 Resp 18 06/05/22 10:49 BP 127/68 06/05/22 10:49 Pulse Ox 94 06/05/22 10:49 Laboratory Results - last 24 hr 06/04/22 06/04/22 06/04/22 17:05 17:05 17:05 WBC 7.19 RBC 3.96 Hgb 13.0 Hct 39.1 MCV 99 H MCH 32.8 MCHC 33.2 RDW 11.7 Plt Count 230 MPV 9.7 Immature Gran % 0.3 Neutrophils % 65.6 Lymphocytes % 25.5 Monocytes % 7.4 Eosinophils % 0.8 Basophils % 0.4 Nucleated RBC % 0.0 Absolute Neutrophils 4.72 Absolute Lymphocytes 1.83 Absolute Monocytes 0.53 Absolute Eosinophils 0.06 Absolute Basophils 0.03 Sodium 138 Potassium 3.5 Chloride 101 Carbon Dioxide 28.7 Anion Gap 8.3 BUN 13 Creatinine 0.7 Est GFR (CKD-EPI 2020) 87.92 Glucose 140 H Hemoglobin A1c 5.4 Calcium 8.9 Magnesium 1.9 Total Bilirubin 0.8 AST 22 ALT 16 Alkaline Phosphatase 40 L Troponin I < 50 Total Protein 7.4 Albumin 4.3 Triglycerides Total Cholesterol LDL Cholesterol, Calc HDL Cholesterol Urine Color Urine Clarity Urine pH Ur Specific [place] Urine Protein Urine Ketones Urine Blood Urine Nitrite Urine Bilirubin Urine Urobilinogen Ur Leukocyte Esterase Urine Glucose COVID-19 Source SARS-CoV-2 (PCR) 06/04/22 06/04/22 06/04/22 18:50 19:42 20:30 WBC RBC Hgb Hct MCV MCH MCHC RDW Plt Count MPV Immature Gran % Neutrophils % Lymphocytes % Monocytes % Eosinophils % Basophils % Nucleated RBC % Absolute Neutrophils Absolute Lymphocytes Absolute Monocytes Absolute Eosinophils Absolute Basophils Sodium Potassium Chloride Carbon Dioxide Anion Gap BUN Creatinine Est GFR (CKD-EPI 2020) Glucose Hemoglobin A1c Calcium Magnesium Total Bilirubin AST ALT Alkaline Phosphatase Troponin I 86 H* 95 H* Total Protein Albumin Triglycerides Total Cholesterol LDL Cholesterol, Calc HDL Cholesterol Urine Color Yellow Urine Clarity Clear Urine pH 7.0 Ur Specific [place] 1.015 Urine Protein Negative Urine Ketones Negative Urine Blood Negative Urine Nitrite Negative Urine Bilirubin Negative Urine Urobilinogen 0.2 Ur Leukocyte Esterase Negative Urine Glucose Negative COVID-19 Source SARS-CoV-2 (PCR) 06/04/22 06/05/22 06/05/22 21:40 00:58 05:25 WBC RBC Hgb Hct MCV MCH MCHC RDW Plt Count MPV Immature Gran % Neutrophils % Lymphocytes % Monocytes % Eosinophils % Basophils % Nucleated RBC % Absolute Neutrophils Absolute Lymphocytes Absolute Monocytes Absolute Eosinophils Absolute Basophils Sodium 138 Potassium 3.1 L Chloride 103 Carbon Dioxide 29.2 Anion Gap 5.8 BUN 8 Creatinine 0.6 Est GFR (CKD-EPI 2020) 91.25 Glucose 96 Hemoglobin A1c Calcium 8.5 Magnesium Total Bilirubin AST ALT Alkaline Phosphatase Troponin I 99 H* Total Protein Albumin Triglycerides 57 Total Cholesterol 197 LDL Cholesterol, Calc 97 HDL Cholesterol 89 Urine Color Urine Clarity Urine pH Ur Specific [place] Urine Protein Urine Ketones Urine Blood Urine Nitrite Urine Bilirubin Urine Urobilinogen Ur Leukocyte Esterase Urine Glucose COVID-19 Source Nasal/Nares SARS-CoV-2 (PCR) Negative Objective Narrative Objective Narrative: EKG: HR 72, NSR, inferolateral T wave inversions (new), prolonged QT/QTc. PAWSS Have you Been Recently Intoxicated or Drunk Within the Last 30 days?: No Have you Ever Experienced Previous Episodes of Alcohol Withdrawal?: No Have you ever Experienced Withdrawal Seizures?: No Have you ever Experienced Delirium Tremens(DT)s?: No Have you ever undergone Alcohol Rehabilitation Treatment (i.e, inpt ot outpatient treatment programs)?: No Have you ever Experienced Blackouts?: Yes Have you ever Combined Alcohol with other Downers within the last 90 days?: No Have you ever Combined Alcohol with any other Substance of Abuse during the last 90 days?: No Positive Blood Alcohol level on Presentation? [PCS.BAL]: No Evidence of Increased Autonomic Activity (i.e. HR>120, tremor, sweating, agitation, nausea)?: No Result: 1
[2022-06-05 12:13] LABS: Troponin I 64 ng/L (<or=60)
--- NOTE | 2022-06-05 14:24 | NUR.NOTE ---
Orthostatic Vital Signs: Sitting: BP: 136/83 and heart rate: 68, Standing: BP: 150/86 and Heart Rate 75.Nursing Note:
[2022-06-05] MEDS: Normal Saline Flush 10 ML SYR IVP (14:41)
[2022-06-05] MEDS: Metoprolol 12.5 MG TAB PO (14:50)
[2022-06-05] MEDS: Enoxaparin 40 MG/0.4 ML SYR SC (22:22)
[2022-06-06] VITALS (16 sets, daily range): BP systolic 127–182; BP diastolic 60–89; PULSE 53–72; RESP 14–23; TEMP 36.6–37.4; O2SAT 92–97
[2022-06-06] MEDS: Normal Saline Flush 10 ML SYR IVP ×2 (00:45→21:38)
--- NOTE | 2022-06-06 02:33 | NUR.NOTE ---
Nursing Note: 18G saline lock not functional in Right AC, ED called for assistance to start IV.
[2022-06-06 06:29] LABS: Abs Immature Grans 0.01 10^3/uL (0.0-0.06); Absolute Basophil Count 0.03 10^3/uL (0.0-0.2); Absolute Eosinophil Count 0.15 10^3/uL (0.0-0.7); Absolute Lymphocyte Count 3.23 10^3/uL (1.2-3.4); Absolute Monocyte Count 0.61 10^3/uL (0.1-0.8); Absolute Neutrophil Count 3.59 10^3/uL (1.2-6.7); Basophils % 0.4; HCT 37.9 % (36.0-46.0); HGB 12.5 g/dL (11.2-15.7); Immature Grans % 0.1; Lymphocytes % 42.4; MCH 32.8 pg (27.0-33.0); MCV 100 fL (80-95); MPV 10.4 fL (8.0-11.0); Neutrophils % 47.1; Platelet Count 218 10^3/uL (130-400); RBC 3.81 10^6/uL (3.93-5.22); RDW 11.9 % (11.7-14.6); RDW-SD 43.6 fL; WBC 7.62 10^3/uL (4.4-10.8)
[2022-06-06 06:47] LABS: BUN 9 mg/dL (7-18); CREATININE 0.5 mg/dL (0.55-1.02); Calcium 8.5 mg/dL (8.5-10.1); Chloride 104 mmol/L (98-107); Estimated GFR 95.35 (mL/min/1.73m2); Glucose 93 mg/dL (74-106); Magnesium 1.8 mg/dL (1.8-2.4); Potassium 3.6 mmol/L (3.5-5.1); Sodium 140 mmol/L (136-145)
[2022-06-06] MEDS: Potassium Chloride 20 MEQ TABCR 40 MEQ PO (08:30)
[2022-06-06] MEDS: Metoprolol 12.5 MG TAB PO ×2 (08:30→19:47)
[2022-06-06] MEDS: Aspirin E.C. 81 MG TABEC PO (08:31)
[2022-06-06] MEDS: MAGNESIUM SULFATE 2 GM/50 ML BAG IVPB (08:46)
--- NOTE | 2022-06-06 13:31 | PT.INIE ---
Date of service: 06/06/22 Time of Service: 13:00 PT Notes Visit Reasons: Vertigo, Elevated Troponin Inpatient Physical Therapy Evaluation Date: 06/06/22 Referring Doctor: Kwabena Treadwell MD PT Orders: PT CONSULT: eval and treat Precautions: Standard, unsteady vitals Patient Profile/Admitting Diagnosis: 81-year-old female status post fall from syncope, found to have elevated troponin in ER 06/04/22. Awaiting echocardiogram tomorrow and then consult with [facility] [place] cardiology. PMHX: All Active Problems?(Updated 06/04/22 @ 20:50 by Miguelina Pastor NP) Fall (Acute) Laceration of scalp (Acute) Elevated troponin (Acute) Syncope (Chronic) Arthritis of left knee (Chronic) Osteoarthritis of knee (Acute 06/04/14) H/O surgical procedure (Chronic) a.? cataract surgery b.? unspecified knee and wrist surgeryClosed left hip fracture (Acute 12/31/14) Surgical History? 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 SHAFER s/p manipulation 02/24/2018 Social History/Home Situation: Lives in a private home with her . 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 She does have 1 flight of stairs she has to utilize to get a rail, I will accommodated as she ages, with handrails and walking Current Functional Limitations: Requiring supervision with functional activity, due to elevated BP Equipment Owned/DME: Subjective: No pain, denies any dizziness, chest pain, shortness of breath etc. Objective: General Observation: No distress, lying in hospital bed, telemetry in place Mental Status: A&Ox3 Pain: None Vital Signs: Supine in hospital bed, BP 150/73, HR 74. At stand, BP 160/74, HR 74. With 250 feet of ambulation 185/69, HR 74. Post 5 minutes standing to brush teeth BP 180/81 ROM: Right Upper Extremity: WNL Left Upper Extremity: WNL Right Lower Extremity: WNL Left Lower Extremity: WNL Strength: Right Upper Extremity: Grossly 4+/5 Left Upper Extremity: Grossly 4+/5 Right Lower Extremity: Grossly 4+/5 Left Lower Extremity: Grossly 4+/5 Sensation: WNL Bed Mobility/Transfers: Bed mobility: Independent Supine to edge of bed: Independent Edge of bed to stand: Supervision, able to be without use of hands Stand to sit independent Static stand x5 minutes independent Gait: WNL, no AD, supervision for vital monitoring. Up and down 4 stairs with rail, distant supervision Balance: Stage 4 Balance Test Time (seconds) Feet together 10+ Partial tandem 10+ Tandem 10+ One foot 10+ Demonstrates ability to go with stand without hands, turn clockwise and counterclockwise without loss of balance Special Tests: Mobility Limitations Standardized Measure [facility] AM-PAC 6 clicks Basic Mobility Inpatient Short Form: 0% disability Informed Consent/Education: Patient instructed in purpose of PT consult and plan of care. Assessment: Patient is a 81year old female referred to physical therapy services post syncope event resulting in fall, with elevated troponin and quest of vital monitoring with functional activity. Patient demonstrating increase in systolic blood pressure with activity, and is not appropriate to be functioning, due to instability and unpredictable blood pressure reaction. Patient is awaiting work-up of echocardiogram and consultation with [facility] [place]. PTs primarily needed here to facilitate physical activity, avoiding safe ranges of her BP, and for vital. Given her safe functional ability, PT to be discharged with stabilization of vitals. Patient is assessed as a Low 77989 complexity based on the following: History: See comorbidities Examination: High blood pressure with physical activity Presentation: Evolving Decision Making: Easy Goals: Goals X1 week 1. Supine-Sit independent with stable vitals 2. Sit-Supine independent with stable vitals 3. Sit-Stand independent with stable vitals 4. Stand-Sit independent with stable vital 5. Bed-Chair independent with stable vitals 6. Chair-Bed independent with stable vital 7. Gait independent x200 feet with stable vital 8. Stairs independent 9. Independent with home exercise program Plan of Care/Treatment Plan: 1-2x/day, 7 days/week x 1 week. Plan of care has been reviewed with the CHORAL DIRECTOR providing the service under Physical Therapy direction. Initiate Physical Therapy intervention for strengthening, bed mobility, transfers, gait, stairs, balance training, use of assistive device. DISCHARGE RECOMMENDATIONS: Home with no services [] TREATMENT CODE/TIME: 33710, 30 minutes, 1:00-1:30
--- NOTE | 2022-06-06 18:29 | PGE_ITS ---
Date of Service Date of service: 06/06/22 Time of Service: 17:30 Assessment and Plan Assessment and plan (1) Syncope: Status: Chronic Assessment and plan: Given borderline eleveated troponin, EKG changes, concern for underlying ischemia and cardiogenic origin of syncope. Has had both SVT and nonsustained VTach. Started on beta blockers. Will continue cardiac monitoring, ensure electrolytes are repleted. Cardiology consult and echo tomorrow. (2) Elevated troponin: Status: Acute Assessment and plan: ?etiology - [facility] [place] cardiology did not feel this was ACS (felt EKG changes were present on the original EKG as well). Could be due to an episode of arrhythmia. Await echocardiogram. Continue cardiac monitoring. (3) Nonsustained supraventricular tachycardia: Status: Acute Assessment and plan: Started on beta blockers. Continue telemetry monitoring. Obtain echo. (4) Nonsustained paroxysmal ventricular tachycardia: Status: Resolved Assessment and plan: As above QTc today 0.447 this am, 0.409 ms this afternoon. Resolved. Continue to monitor and replete lytes. Both K and magnesium supplemented today. (5) Acute electrocardiogram changes: Status: Acute Assessment and plan: Discussed [facility] cardiology, who did not feel this was an ACS. Will continue cardiac monitoring. Obtain a formal cardiology consult. Await echo tomorrow. (6) Fall: Status: Acute Assessment and plan: PT c/s. (7) Hypokalemia: Status: Acute Assessment and plan: Replete; recheck in am (8) QT prolongation: Status: Resolved Assessment and plan: Monitor and replete lytes. Benadryl d/c'ed. Continue cardiac monitoring. Cardiology at [facility] [place] doubted that the patient's description of fluttering in her chest was c/w description of a ventricular arrhythmia. (9) DVT prophylaxis: Status: Acute Assessment and plan: SC enoxaparin (10) Discharge planning issues: Status: Acute Assessment and plan: Full code Continues to require hospitalization Subjective Subjective Interval history since last seen: Ms Hernandez states she is feeling well today. Denies dizziness, chest pain, palpitations, shortness of breath, nausea. Had an epiosde of SVT yesterday up to HR of 140 and 5 beats of Vtach today. Exam Narrative Exam Narrative: General: Pleasant elderly female, A&Ox3, NAD HEENT: EOMI, MMM, L lower lip ecchymosis/abrasion Heart: RRR, no m/r/g Lungs: CTAB Abdomen: soft, nontender, nondistended Extremities: no edema BLEs Objective Last Vital Signs Temp 37.4 C 06/06/22 15:01 Pulse 64 06/06/22 15:01 Resp 16 06/06/22 15:01 BP 140/84 06/06/22 15:01 Pulse Ox 95 06/06/22 15:01 Laboratory Results - last 24 hr 06/06/22 06/06/22 05:16 05:16 WBC 7.62 RBC 3.81 L Hgb 12.5 Hct 37.9 MCV 100 H MCH 32.8 MCHC 33.0 RDW 11.9 Plt Count 218 MPV 10.4 Immature Gran % 0.1 Neutrophils % 47.1 Lymphocytes % 42.4 Monocytes % 8.0 Eosinophils % 2.0 Basophils % 0.4 Nucleated RBC % 0.0 Absolute Neutrophils 3.59 Absolute Lymphocytes 3.23 Absolute Monocytes 0.61 Absolute Eosinophils 0.15 Absolute Basophils 0.03 Sodium 140 Potassium 3.6 Chloride 104 Carbon Dioxide 26.0 Anion Gap 10.0 BUN 9 Creatinine 0.5 L Est GFR (CKD-EPI 2020) 95.35 Glucose 93 Calcium 8.5 Magnesium 1.8 PAWSS Have you Been Recently Intoxicated or Drunk Within the Last 30 days?: No Have you Ever Experienced Previous Episodes of Alcohol Withdrawal?: No Have you ever Experienced Withdrawal Seizures?: No Have you ever Experienced Delirium Tremens(DT)s?: No Have you ever undergone Alcohol Rehabilitation Treatment (i.e, inpt ot outpatient treatment programs)?: No Have you ever Experienced Blackouts?: Yes Have you ever Combined Alcohol with other Downers within the last 90 days?: No Have you ever Combined Alcohol with any other Substance of Abuse during the last 90 days?: No Positive Blood Alcohol level on Presentation? [PCS.BAL]: No Evidence of Increased Autonomic Activity (i.e. HR>120, tremor, sweating, agitation, nausea)?: No Result: 1
[2022-06-06] MEDS: Enoxaparin 40 MG/0.4 ML SYR SC (21:38)
[2022-06-07] VITALS (11 sets, daily range): BP systolic 139–166; BP diastolic 75–92; PULSE 55–70; RESP 16–20; TEMP 36.4–36.9; O2SAT 96–97
--- NOTE | 2022-06-07 | DI.US_ITS ---
APPROVED REPORT EXAM: Comprehensive 2D, Doppler, and color-flow Echocardiogram Patient Location: In-Patient [employer] Supervisor: Renee Elliott RDCS (AE) Indications: Elevated troponin, Syncope Other Information Study Quality: Adequate Conclusion Normal left ventricular wall thickness and chamber size. Estimated ejection fraction is 60%. Wall m otion is normal Normal right ventricular size and systolic function The left atrium is mildly dilated. The right atrium is normal in size Aortic valve is trileaflet and sclerotic. There is no aortic stenosis. There is trace aortic regurg itation Normal mitral valve with mild regurgitation Normal tricuspid valve with mild regurgitation. Estimated right ventricular systolic pressure is 25 mmHg Wall motion Left Ventricle The left ventricle is normal size. The left ventricular systolic function is normal. The left ventric ular ejection fraction is within the normal range. There is normal left ventricular wall thickness. T here is normal LV segmental wall motion. There is no ventricular septal defect visualized. LVEF is 60 %. Right Ventricle The right ventricle is normal size. The right ventricular systolic function is normal. The RVSP is 24 .8 mmHg. Atria Left atrium is mildly dilated. The right atrium size is normal. The interatrial septum is intact with no evidence for an atrial septal defect. Aortic Valve The Aortic valve is sclerotic. Aortic valve is trileaflet. There is no aortic valvular stenosis. Trac e aortic regurgitation. Mitral Valve The mitral valve is normal in structure. No evidence of mitral valve stenosis. Mild mitral regurgitat ion. Tricuspid Valve The tricuspid valve is normal in structure. There is no tricuspid valve stenosis. Mild tricuspid regu rgitation. Pulmonic Valve Pulmonic valve is not well visualized. There is no pulmonic valvular stenosis. Trace pulmonic regurgi tation. Great Vessels The aortic root is normal in size. Ascending aorta is not well visualized. Aortic arch is normal in c aliber. IVC is normal in size and collapses >50% with inspiration. Pericardium There is no pericardial effusion. 2D Dimensions IVSD d PLAX 0.90 cm F: 0.6-1.0 LV Vol A2C d MOD 65.0 mL LVPW d PLAX 0.95 cm F: 0.6 - 1.0 LV Vol A4C d MOD 79.5 mL LVID d PLAX 4.44 cm F: 3.8 - 5.2 LA vol/ BSA A2C s A-L 45.0 mL/m2 LVDs 2.95 cm F: 2.2 - 3.5 LA vol/ BSA A4C s A-L 39.7 mL/m2 Ao Root d 3.00 cm F: 2.7 - 3.3 LA Vol/ BSA Biplane s A-L 44.4 mL/m2 RA Area A4C 15.85 cm2 LA Area A4C s MOD 22.35 cm2 RA Vol/ BSA A4C s A-L 21.1 mL/m2 LA Area A2C s MOD 22.65 cm2 LV EF Teichholz 60.9 % LV EF A4C MOD 60.0 % LVEF (Ornelas's) 60.83 % F: 54 - 74 LV EF A2C MOD 60.0 % LV Volume 57.61 mL F: 46 - 106 LV EF Biplane MOD 60.8 % LV Volume Index 32.92 mL/m2 F: 29 - 61 SV 44.61 mL LV Vol Biplane MOD 73.3 mL SV Index 25.48 mL/m2 FS 32.40 % M-Mode TAPSE 2.63 cm (M/F) >1.7 LV Diastology MV E' medial 0.059 (>0.07 m/s) E/A Ratio 0.9 LV E/e MED 7.95 (<14) MV E Vmax 0.47 (0.4-1.3 m/s) MV E' lateral 0.077 (>0.1 m/s) MV A Vmax 0.55 (0.4-1.3 m/s) LV E/e LAT 6.10 (<14) MV E/A Ratio 0.81 MV E/E' medial 7.99 MV E/E' lateral 6.12 Aortic Valve LVOT Area 3.33 cm2 AoV Area Vmax 2.03 cm2 LVOT Vmax 1.01 m/s AoV Area/ BSA (Vmax) 1.16 cm2/m2 LVOT Mean Anthony. 0.68 m/s FRED Mean Anthony. 2.00 cm2 LVOT Peak Grad 4.1 mmHg FRED Mean Anthony. Index 1.14 cm2/m2 LVOT Mean Grad 2.2 mmHg AR DT 1634 msec LVOT VTI 0.240 m AR PHT 474 msec LVOT Diam s 2.05 cm AoV Vmax 1.65 m/s Velocity Ratio 0.61 AoV Mean Anthony. 1.14 m/s AoV Peak Grad 10.9 mmHg LVOT SV 79.79 mL AoV Mean Grad 5.7 mmHg AoV VTI 0.359 m AoV Area VTI 2.22 cm2 AoV Area/ BSA (VTI) 1.27 cm/m2 Mitral Valve MV DT 377 (160-240 msec) MV PHT 109 msec MV Area PHT 2.01 cm2 MV VTI 0.262 m MV Area VTI 3.04 (4.0-6.0 cm2) Pulmonary Valve PV Vmax 0.72 (0.5-1.5 m/s) RVOT Peak Gr. 0.88 mmHg PV Peak Grad 2.1 mmHg RVOT Mean Gr. 0.45 mmHg PV Mean Grad 1.2 mmHg RVOT VTI 0.091 m PV VTI 0.134 m RVOT Vmax 0.47 m/s Tricuspid Valve TR Peak Grad 21.7 mmHg TR Vmax 2.33 m/s RA Pressure 3.00 mmHg RVSP (TR) 24.8 mmHg
--- NOTE | 2022-06-07 | DI.MRI_ITS ---
Exam(s) MR BRAIN WO EXAM: MR BRAIN WO CLINICAL HISTORY: ?transient L hemiparesis post syncopal episode TECHNIQUE: Multiplanar multisequence MRI of the brain was performed. COMPARISON: CT CT HEAD WO from 06/04/2022 FINDINGS: CEREBRAL PARENCHYMA: There is no evidence of intracranial hemorrhage, mass effect, or shift of midline structures. There are no extra-axial fluid collections. Ventricles are not enlarged or shifted. There is no significant focal signal abnormality in the cerebellar hemispheres nor within the dee dee, m idbrain, and thalami. There are few scattered sub cm foci of signal abnormality in the periventricular white matter consist ent with chronic small vessel disease. No areas of restricted diffusion to suggest acute ischemic ev ent. There is no significant focal signal abnormality evident on diffusion imaging to suggest acute ischem ic event. PITUITARY GLAND: No mass nor parasellar abnormality. No obvious abnormality in the cavernous sinuses. FLOW VOIDS: The expected flow void are noted. No evidence of obvious aneurysm nor obvious vascular ma lformation. PARANASAL SINUSES: The visualized paranasal sinuses appear unremarkable. No obvious finding ORBITS: No obvious findings. IMPRESSION: No significant acute intracranial findings on this noninfused MRI scan of the brain. Scattered white matter foci consistent chronic small vessel disease but no evidence of acute infarct. No hemorrhage . DATA REPOSITORY:
[2022-06-07 06:29] LABS: Anion Gap 5.4 mmol/L (3-11); BUN 10 mg/dL (7-18); CO2 27.6 mmol/L (21.0-32.0); CREATININE 0.7 mg/dL (0.55-1.02); Calcium 8.5 mg/dL (8.5-10.1); Chloride 104 mmol/L (98-107); Estimated GFR 87.92 (mL/min/1.73m2); Glucose 102 mg/dL (74-106); Potassium 3.6 mmol/L (3.5-5.1); Sodium 137 mmol/L (136-145)
[2022-06-07] MEDS: Potassium Chloride 20 MEQ TABCR 40 MEQ PO (07:35)
[2022-06-07] MEDS: Metoprolol 12.5 MG TAB PO ×2 (07:35→20:17)
[2022-06-07] MEDS: Aspirin E.C. 81 MG TABEC PO (07:35)
[2022-06-07] MEDS: Normal Saline Flush 10 ML SYR IVP ×2 (07:36→20:19)
--- NOTE | 2022-06-07 08:43 | W.CARDCONSUL ---
Date of service: 06/07/22 Time of Service: 08:43 Assessment and Plan Assessment and plan (1) Fall: Status: Acute Assessment and plan: By history the patient had abnormal mental status which lasted at least 15 minutes and at the end of which she fell. Her EKGs are nonspecific. Her troponin is not a particular concern. The self-limited dysrhythmias are also nonspecific. I would agree with the providers at [facility] who provided telephone input that this is not acute coronary syndrome. I agree that her QT interval is not worrisome either. I do not think presentation is particularly suggestive of a dysrhythmia. I would await the echocardiogram. I would consider neurology evaluation to be more useful than a nuclear stress test. History of Present Illness History of Present Illness Chief Complaint: Confusion and syncope Narrative: This 81-year-old woman was admitted to the hospital after she had an episode which will be detailed. She reports that she had gone with her to see about something to do with solar panels. They left that store and went to the market. He let her off and she went in and went shopping. When she came out of the store she was confused. She could not find the car, did not know when her was and she asked a bystander to help her find her . Her came back with the car and she got again and went home. They unloaded the groceries. She does not think she was confused then but was not sure what she was doing. Subsequently she fainted. She does not recall those details, remembers being put in an ambulance but could not recall details until after she was at the hospital. EKGs have been performed. All of these show nondiagnostic ST-T abnormalities. There are no acute changes suggesting of acute coronary syndrome She has had troponins done. These are borderline, not impressive. She does not describe any chest discomfort or difficulty breathing around the time of her presentation., Monitoring has disclosed some nonspecific abnormalities such as self-limited atrial runs, brief nonsustained ventricular tachycardia. She does not describe palpitations Overall she is fairly active, healthy for age. She walks her dog. She does not describe exertional symptoms concerning for angina CT of the head done in the ER was unremarkable. She did not have a chest x-ray or other imaging Review of Systems Cardiovascular Comments: [facility] All Active Problems (Updated 06/06/22 @ 18:41 by Christine Roe MD) Nonsustained supraventricular tachycardia (Acute) Hypokalemia (Acute) Discharge planning issues (Acute) DVT prophylaxis (Acute) Acute electrocardiogram changes (Acute) Fall (Acute) Laceration of scalp (Acute) Elevated troponin (Acute) Syncope (Chronic) Arthritis of left knee (Chronic) Osteoarthritis of knee (Acute 06/04/14) H/O surgical procedure (Chronic) a. cataract surgery b. 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 SHAFER s/p manipulation 02/24/2018 Social History Smoking/Tobacco Use Status: Former Tobacco Use Smoking risk assessment performed?: Yes Alcohol Intake: current Alcohol Intake frequency: 0-2 drinks per day Drug use: Never Substance use type: does not use Do you feel safe at home: Yes Do you feel safe in your relationship?: Yes Exam Const Other: Well-developed well-nourished looks a bit younger than stated age no acute distress Neck Other: Neck veins are flat carotid pulsations are normal there are no bruits Resp Auscultation: clear to auscultation bilaterally Cardio Other: Heart is regular normal S1-S2 physiologically split brief systolic ejection quality murmur Extrem Other: No peripheral edema Results Last Vital Signs Temp 36.5 C 06/07/22 07:16 Pulse 62 06/07/22 07:16 Resp 18 06/07/22 07:16 BP 166/80 H 06/07/22 07:16 Pulse Ox 96 06/07/22 07:16 Labs Result diagrams: 06/06/22 05:16 06/07/22 05:40 Labs: Laboratory Results - last 24 hr 06/07/22 05:40 Sodium 137 Potassium 3.6 Chloride 104 Carbon Dioxide 27.6 Anion Gap 5.4 BUN 10 Creatinine 0.7 Est GFR (CKD-EPI 2020) 87.92 Glucose 102 Calcium 8.5 Magnesium 2.0
--- NOTE | 2022-06-07 11:43 | PT.INTREAT ---
Date of service: 06/07/22 Time of Service: 11:43 PT Notes Visit Reasons: Vertigo, Elevated Troponin Inpatient Physical Therapy Treatment Note [facility] Date: 06/07/2022 PRECAUTIONS: Activity as tolerated. SUBJECTIVE: Agreeable to PT consult. Denies heaache, chest pain, and lightheadedness/dizziness throughout session. Looking ofrward to hearing about how her echo went. OBJECTIVE: Supine in bed. Telemetry monitoring in place. No lines attached. PAIN: Denies BED MOBILITY/TRANSFERS Rolling L/R: Independent Supine-sit: Independent Sit-supine: Independent Sit-stand: Independent Stand-sit: Independent Bed-Chair: Independent Chair-bed: Independent GAIT Assistive Device: No AD Weight bearing: FWB Assist: Supervision Distance: 200 feet Deviation: Gait pattern unremarkable. No path deviation. VITALS: WNL THEREX: Side stepping x 5 Bilateral heel raises x 5 STAIRS: Will pursue tomorrow as patient's lunch arrived. ASSESSMENT: Patient is able to toelrate level surface ambulation without any assistive device without report of shortness of breath, lightheadedness, and dizziness. Did not report of any weakness duirng the walk. PLAN: Will see patient once a day for 1-2 more sessions before discharge to assess stability and safety of upgrade to independent ambulation in the hallways without AD. TREATMENT CODE/TIME: 15996 x 25 minutes beginning at 11:43 AM.
--- NOTE | 2022-06-07 16:53 | CMPROGNOTE_ITS ---
- If Service Date Differs Date of service: 06/07/22 Time of Service: 16:53 Care Management Progress Note S/O: Justine (aka. Gricelda) was lying in bed when CM met with her. She is awake, alert and able to engage in conversation. Gricelda had Reiki for the first time this morning and is amazed by it. Gricelda continues to require close monitoring on telemetry and further medical work up. She is working with PT, and doing quite well. Neurology and Cardiology consults are ordered. CM will continue to follow. A: 81 year old female admitted to [facility] 06/04/22 for Vertigo, Elevated Troponin. P: Justine will have an ultrasound of her heart on Tuesday. The results of the ultrasound will dictate whether she is transferred to [facility] or remains at [facility] for the course of her treatment. Once she is medically cleared, she will discharge home with no services and will follow up with her PCP, cardiology and plan of care as instructed. She will be driven home by her via private vehicle when ready. CM will continue to support Justine and any discharge planning needs.
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
--- NOTE | 2022-06-07 17:31 | W.PM.PROGNOT ---
Date of Service Date of service: 06/07/22 Time of Service: 17:31 Subjective Subjective Interval history since last seen: Patient is in the MRI at the time of the attempted visit. Objective Last Vital Signs Temp 36.4 C L 06/07/22 15:08 Pulse 65 06/07/22 15:08 Resp 16 06/07/22 15:08 BP 154/81 H 06/07/22 15:08 Pulse Ox 96 06/07/22 15:08 Laboratory Results - last 24 hr 06/07/22 05:40 Sodium 137 Potassium 3.6 Chloride 104 Carbon Dioxide 27.6 Anion Gap 5.4 BUN 10 Creatinine 0.7 Est GFR (CKD-EPI 2020) 87.92 Glucose 102 Calcium 8.5 Magnesium 2.0 PAWSS Have you Been Recently Intoxicated or Drunk Within the Last 30 days?: No Have you Ever Experienced Previous Episodes of Alcohol Withdrawal?: No Have you ever Experienced Withdrawal Seizures?: No Have you ever Experienced Delirium Tremens(DT)s?: No Have you ever undergone Alcohol Rehabilitation Treatment (i.e, inpt ot outpatient treatment programs)?: No Have you ever Experienced Blackouts?: Yes Have you ever Combined Alcohol with other Downers within the last 90 days?: No Have you ever Combined Alcohol with any other Substance of Abuse during the last 90 days?: No Positive Blood Alcohol level on Presentation? [PCS.BAL]: No Evidence of Increased Autonomic Activity (i.e. HR>120, tremor, sweating, agitation, nausea)?: No Result: 1
--- NOTE | 2022-06-07 17:57 | DI.VRAD_ITS ---
PROCEDURE INFORMATION: Exam: MR Head Without Contrast Exam date and time: 06/07/2022 5:05 PM Age: 81 years old Clinical indication: ? Transient L hemiparesis post syncopal episode TECHNIQUE: Imaging protocol: Magnetic resonance imaging of the head without contrast. COMPARISON: CT HEAD WO 06/04/2022 5:28 PM FINDINGS: Brain: Age-related involutional changes and chronic microvascular ischemic disease. No acute infarct. No mass effect or midline shift. No extra-axial collection. No acute intracranial hemorrhage. Basal cisterns are patent. Cerebral ventricles: Normal. No ventriculomegaly. Bones/joints: Unremarkable. Paranasal sinuses: Normal as visualized. No acute sinusitis. Mastoid air cells: Normal as visualized. No mastoid effusion. Orbital cavities: Bilateral cataract surgery. Soft tissues: Unremarkable. IMPRESSION: No acute infarct, acute intracranial hemorrhage, or mass effect. Dictated and Authenticated by: Jose Manuel Rangel MD. Ordering:JEANMARIE King MD
--- NOTE | 2022-06-07 19:52 | W.PM.PROGNOT ---
Date of Service Date of service: 06/07/22 Time of Service: 18:45 Assessment and Plan Assessment and plan (1) Syncope: Status: Chronic Assessment and plan: Given borderline eleveated troponin, EKG changes, concern for underlying ischemia and cardiogenic origin of syncope. Evaluated by cardiology, however, who felt neurologic causes should be investigated. Neurology consulted, MRI pending. Has had both SVT and nonsustained VTach. Continue beta blockers. Will continue cardiac monitoring, ensure electrolytes are repleted. Echo with LVEF of 60%, normal wall motion, RVSP of 25 mmHG, no significant valvular abnormalities. (2) Elevated troponin: Status: Acute Assessment and plan: ?[place] [facility] [place] not feel this was [place] (felt EKG changes were present on the original EKG as well). Dr Alex agrees. Continue cardiac monitoring. No wall motional abnormalities on echo. LVEF preserved. Anticipate an outpatient stress test. (3) Nonsustained supraventricular tachycardia: Status: Acute Assessment and plan: Continue metoprolol. Continue telemetry monitoring. Echo with preserved LVEF. (4) Nonsustained paroxysmal ventricular tachycardia: Status: Resolved Assessment and plan: As above QT prolongation resolved and was not as high as our numbers made it look, per cardiology. Resolved. Continue to monitor and replete lytes. (5) Acute electrocardiogram changes: Status: Acute Assessment and plan: Discussed [facility] cardiology, who did not feel this was an ACS. As above. Anticipate outpatient stress testing. (6) Fall: Status: Acute Assessment and plan: PT c/s. (7) Hypokalemia: Status: Resolved Assessment and plan: recheck in am (8) QT prolongation: Status: Resolved Assessment and plan: Monitor and replete lytes. Benadryl d/c'ed. Continue cardiac monitoring. Resolved. (9) DVT prophylaxis: Status: Acute Assessment and plan: SC enoxaparin (10) Discharge planning issues: Status: Acute Assessment and plan: Full code Anticipate discharge home tomorrow Discussed with Dr Gutierrez Subjective Subjective Interval history since last seen: Feels well. No dizziness, numbness, headache, chest pain, shortness of breath, palpitations. NO episodes of SVT or VTach reported. Evaluated by cardiology: recommended a neurology consult. Evaluated by neurology: recommended an MRI of the brain, which is done but not yet read. Exam Narrative Exam Narrative: General: Pleasant elderly female, A&Ox3, NAD HEENT: EOMI, MMM, L lower lip ecchymosis/abrasion Heart: RRR, no m/r/g Lungs: CTAB Abdomen: soft, nontender, nondistended Extremities: no edema BLEs Objective Last Vital Signs Temp 36.9 C 06/07/22 19:46 Pulse 65 06/07/22 19:46 Resp 18 06/07/22 19:46 BP 161/75 H 06/07/22 19:46 Pulse Ox 96 06/07/22 19:46 Laboratory Results - last 24 hr 06/07/22 05:40 Sodium 137 Potassium 3.6 Chloride 104 Carbon Dioxide 27.6 Anion Gap 5.4 BUN 10 Creatinine 0.7 Est GFR (CKD-EPI 2020) 87.92 Glucose 102 Calcium 8.5 Magnesium 2.0 PAWSS Have you Been Recently Intoxicated or Drunk Within the Last 30 days?: No Have you Ever Experienced Previous Episodes of Alcohol Withdrawal?: No Have you ever Experienced Withdrawal Seizures?: No Have you ever Experienced Delirium Tremens(DT)s?: No Have you ever undergone Alcohol Rehabilitation Treatment (i.e, inpt ot outpatient treatment programs)?: No Have you ever Experienced Blackouts?: Yes Have you ever Combined Alcohol with other Downers within the last 90 days?: No Have you ever Combined Alcohol with any other Substance of Abuse during the last 90 days?: No Positive Blood Alcohol level on Presentation? [PCS.BAL]: No Evidence of Increased Autonomic Activity (i.e. HR>120, tremor, sweating, agitation, nausea)?: No Result: 1
[2022-06-07] MEDS: Enoxaparin 40 MG/0.4 ML SYR SC (21:47)
--- NOTE | 2022-06-08 | DI.MRI_ITS ---
Exam(s) MR ANGIO NECK WO EXAM: MAGNETIC RESONANCE ANGIOGRAPHY OF THE NECK WITHOUT IV CONTRAST CLINICAL HISTORY: suspected intracerebral stenosis. TECHNIQUE: PERFORMED ON 1.5 MIR UNIT WITH [id number] SEQUENCE. CONTRAST MATERIAL: NONE COMPARISON: Recent brain imaging studies reviewed FINDINGS: Aortic arch: Anatomic variant here. The vertebral artery originates as an independent vessel off the aortic arch. Common carotid arteries ascend with normal luminal diameters. No significant stenosis at the level o f the distal common carotid arteries nor at the level the carotid bulbs and there is no significant s tenosis in the proximal internal carotid arteries. Internal carotid arteries above this level are pa tent in the upper neck and shown to be patent in the skull base-carotid canals. POSTERIOR CIRCULATION: Vertebral arteries both ascend with normal equal diameters in the foramen tabor sverse area with no evidence of intraluminal thrombus nor dissection. At the skull base both vertebr al arteries contribute to the formation of the basilar artery. IMPRESSION: 1. Patent carotid arteries in the neck. No significant stenosis evident. 2. Vertebral arteries are patent bilaterally and of equal caliber. 3. The left vertebral artery is noted to originate as an independent vessel off the aortic arch, this being a variant of normal. DATA REPOSITORY:
--- NOTE | 2022-06-08 | DI.MRI_ITS ---
Exam(s) MR ANGIO BRAIN WO EXAM: MR ANGIO BRAIN WO CLINICAL HISTORY: suspected intracerebral stenosis TECHNIQUE: Performed on 1.5 [address] [place] unit with [id number] sequence. COMPARISON: MR MR BRAIN WO from 06/07/2022 FINDINGS: ANTERIOR CIRCULATION: Both internal carotid arteries are patent in the skull base-carotid canals as w ell as within the cavernous sinuses. The supraclinoid aspects of these vessels are patent.. Both A1 segments are patent as are the anterior cerebral arteries. There is no aneurysm at the level of the anterior communicating artery. Both middle cerebral arteries are patent. No significant stenosis nor occlusion. No aneurysms. POSTERIOR CIRCULATION: The basilar artery is formed by both vertebral arteries at skull base. Patching Machine Operator ior inferior cerebellar arteries are seen originating off the vertebral arteries at the skull base. The basilar artery ascends with normal luminal diameter. Distally it gives off patent superior cereb ellar arteries. Above this level it terminates as patent bilateral posterior cerebral arteries. The left posterior cerebral artery also receives flow from a thin posterior communicating artery on the left side of the [id number]. IMPRESSION: 1. Patent intracranial arteries. No obvious stenosis. 2. No aneurysms evident. DATA REPOSITORY:
[2022-06-08 07:24] VITALS: PULSE 70
[2022-06-08] MEDS: Potassium Chloride 20 MEQ TABCR 40 MEQ PO (07:55)
[2022-06-08] MEDS: Aspirin E.C. 81 MG TABEC PO (07:55)
[2022-06-08] MEDS: Metoprolol 12.5 MG TAB PO (07:55)
[2022-06-08 08:00] VITALS: BP 158/85; PULSE 63; RESP 16; TEMP 36.6; O2SAT 96
--- NOTE | 2022-06-08 09:35 | PGE_ITS ---
Date of Service Date of service: 06/08/22 Time of Service: 09:35 Assessment and Plan Assessment and plan (1) Syncope: Status: Chronic Assessment and plan: Ms. Hernandez was admitted following some type of spell - no witnessed convulsive activity but otherwise poor description of event - unknown duration and exact circumstances, etc. With events earlier in the day of AMS vs anxiety - again unclear. Cardiology is not concerned about a cardiac etiology. Ms. Hernandez has no seizure risk factors. There was a question of transient focal neurological deficits and thus recrudescence vs TIA comes into the differential. MRI brain without evidence of prior infarct. Thus, I recommend MRA head/neck as further work-up of potential TIA. EEG pending for today as well Agree with the add ition of aspirin 81mg daily - discussed with her. She should not drive for the time being regardless of etiology of her event. She should follow-up in neurology clinic in 4-6 weeks. Subjective Subjective Interval history since last seen: Doing well overnight. Tele ok. MRI brain w/o (06/07/22): no acute findings. Mild chronic small vessel disease. I reviewed these images personally and this is my personal interpretation. Exam Narrative Exam Narrative: Physical Exam: Constitutional: Patient of apparent stated age, well nourished, well developed, no acute distress Neuro: MS/Language/Speech: Alert, oriented, clear language (fluency and comprehension), no dysarthria Motor: Normal bulk and tone. FMM intact, no pronator drift. Coordination: Finger to nose performed without dysmetria Gait: normal base and arm-swing Objective Last Vital Signs Temp 97.9 F 06/08/22 08:00 Pulse 63 06/08/22 08:00 Resp 16 06/08/22 08:00 BP 158/85 H 06/08/22 08:00 Pulse Ox 96 06/08/22 08:00 PAWSS Have you Been Recently Intoxicated or Drunk Within the Last 30 days?: No Have you Ever Experienced Previous Episodes of Alcohol Withdrawal?: No Have you ever Experienced Withdrawal Seizures?: No Have you ever Experienced Delirium Tremens(DT)s?: No Have you ever undergone Alcohol Rehabilitation Treatment (i.e, inpt ot ou tpatient treatment programs)?: No Have you ever Experienced Blackouts?: Yes Have you ever Combined Alcohol with other Downers within the last 90 days?: No Have you ever Combined Alcohol with any other Substance of Abuse during the last 90 days?: No Positive Blood Alcohol level on Presentation? [PCS.BAL]: No Evidence of Increased Autonomic Activity (i.e. HR>120, tremor, sweating, agitation, nausea)?: No Result: 1
--- NOTE | 2022-06-08 10:42 | CMPROGNOTE_ITS ---
- If Service Date Differs Date of service: 06/08/22 Time of Service: 10:42 Care Management Progress Note S/O: Justine (aka. Gricelda) was lying in bed when CM met with her. She is awake, alert and able to engage in conversation. A: 81 year old female admitted to [facility] 06/04/22 for Vertigo, Elevated Troponin. P: Justine will have an ultrasound of her heart on Tuesday. The results of the ultrasound will dictate whether she is transferred to [facility] or remains at [facility] for the course of her treatment. Once she is medically cleared, she will discharge home with no services and will follow up with her PCP, cardiology and plan of care as instructed. She will be driven home by her via private vehicle when ready. CM will continue to support Justine and any discharge planning needs.
--- NOTE | 2022-06-08 11:48 | INDS_ITS ---
Date of service: 06/08/22 Time of Service: 11:48 PT Notes Visit Reasons: Vertigo, Elevated Troponin Physical Therapy Inpatient Discharge Summary Date: 06/08/22 Referring Doctor: Kwabena Treadwell MD PT Orders: PT CONSULT: eval and treat Precautions: Standard, unsteady vitals Patient Profile/Admitting Diagnosis:?? 81-year-old female status post fall from syncope, found to have elevated troponin in ER 06/04/22.? Awaiting echocardiogram tomorrow and then consult with [facility] cardiology. PMHX:? All Active Problems?(Updated 06/04/22 @ 20:50 by Miguelina Pastor NP) Fall (Acute) Laceration of scalp (Acute) Elevated troponin (Acute) Syncope (Chronic) Arthritis of left knee (Chronic) Osteoarthritis of knee (Acute 06/04/14) H/O surgical procedure (Chronic) a.? cataract surgery b.? unspecified knee and wrist surgeryClosed left hip fracture (Acute 12/31/14) Surgical History? 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 SHAFER s/p manipulation 02/24/2018 Social History/Home Situation: Manuel CUETO with surnambeni lives in a private home with her .? 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 She does have 1 flight of stairs she has to utilize to get a rail, I will accommodated as she ages, with handrails and walking Current Functional Limitations: Requiring supervision with functional activity, due to elevated BP Equipment Owned/DME: Subjective:?Denies pain. Looking forward to going home today. Objective:? General Observation: In NAD. Seated at edge of bed. Mental Status: A & Ox4 Pain: None ROM: Right Upper Extremity: WNL Left Upper Extremity: WNL Right Lower Extremity: WNL Left Lower Extremity: WNL Strength: Right Upper Extremity: Grossly 4+/5 Left Upper Extremity: Grossly 4+/5 Right Lower Extremity: Grossly 4+/5 Left Lower Extremity: Grossly 4+/5 Sensation:?WNL BED MOBILITY/TRANSFERS? Rolling L/R: Independent Supine-sit: Independent? Sit-supine: Independent ? Sit-stand: Independent? Stand-sit: Independent ? Bed-Chair: Independent ? Chair-bed: Independent ? GAIT? Assistive Device: No AD? Weight bearing: FWB Assist: Supervision ? Distance:? 600 feet ? Deviation: Gait pattern unremarkable. No path deviation.? VITALS:? WNL Balance:? Stage 4 Balance Test Time (seconds) Feet together 10+ Partial tandem 10+ Tandem 10+ One foot 10+ Demonstrates ability to go with stand without hands, turn clockwise and counterclockwise without loss of balance Special Tests: Mobility Limitations Standardized Measure [facility] AM-PAC 6 clicks Basic Mobility Inpatient Short Form: 0% disability Assessment:?? Patient is a 81year old female referred to physical therapy services post syncope event resulting in fall, with elevated troponin and quest of vital monitoring with functional activity.? Patient demonstrating increase in systolic blood pressure with activity, and is not appropriate to be functioning, due to instability and unpredictable blood pressure reaction.? Patient is awaiting work-up of echocardiogram and consultation with [facility].? PTs primarily needed here? to facilitate physical activity, avoiding safe ranges of her BP, and for vital.? Given her safe functional ability, PT to be discharged with stabilization of vitals. Goals: Goals X1 week 1. Supine-Sit independent with stable vitals 2. Sit-Supine independent with stable vitals 3. Sit-Stand independent with stable vitals 4. Stand-Sit independent with stable vital 5. Bed-Chair independent with stable vitals 6. Chair-Bed independent with stable vital 7. Gait independent x200 feet with stable vital 8. Stairs independent 9. Independent with home exercise program DISCHARGE RECOMMENDATIONS: Home with no services. TREATMENT CODE/TIME: 38938 x 20 minutes beginning at 11:48 AM. Thank you for the opportunity to participate in the care of this patient. Adelai Brennan PT, DPT, CLT [facility] [place], [place]
--- NOTE | 2022-06-08 12:11 | PDOC.EEG_ITS ---
Neurology EEG EEG: [facility] Department of Neurology INPATIENT EEG REPORT Date of Recordin06/08/22 Interpreting Physician: Dr. Debra Gutierrez Reason for study: Ms. Hernandez is admitted s/p spell with KHUSHBU. Current Medications: Current Medications Acetaminophen (Acetaminophen 325 Mg Tab) 325 - 650 mg PO Q4H PRN PRN Acetaminophen (Acetaminophen 500 Mg Tab) 1,000 mg PO HS PRN PRN Al Hydrox/Mg Hydrox/Simethicone (Mylanta Suspension 30 Ml Cup) 30 ml PO Q2H PRN PRN Aminophylline (Aminophylline 500 Mg/20 Ml Vial) 0 mg IVP DIRECTED [facility] Aspirin (Aspirin E.C. 81 Mg Tabec) 81 mg PO DAILY [facility] Last Admin: 06/08/22 07:55 Dose: 81 mg Dimethicone/Zinc Oxide (Darcy Protect Cream 142 Gm Tube) 0 gm TP PRN PRN Diphenhydramine HCl (Diphenhydramine 25 Mg Cap) 50 mg PO HS PRN PRN Enoxaparin Sodium (Enoxaparin 40 Mg/0.4 Ml Syr) 40 mg SC Q24H [facility] Last Admin: 06/07/22 21:47 Dose: 40 mg IV Miscellaneous Supplies (Iv Access) 1 each IV DIRECTED [facility] Metoprolol Tartrate (Metoprolol 12.5 Mg Tab) 12.5 mg PO BID [facility] Last Admin: 06/08/22 07:55 Dose: 12.5 mg Polyethylene Glycol (Polyethylene Glycol 3350 17 Gm Packet) 17 gm PO DAILY PRN PRN PRN Reason: Constipation Potassium Chloride (Potassium Chloride 20 Meq Tabcr) 40 meq PO DAILY [facility] Last Admin: 06/08/22 07:55 Dose: 40 meq Regadenoson (Regadenoson 0.4 Mg/5 Ml Syr) 0.4 mg IVP TODAY [facility] Sodium Chloride (Normal Saline Flush 10 Ml Syr) 0 ml IVP PRN PRN Last Admin: 06/07/22 20:19 Dose: 10 ml METHODS: A 21 channel digitized electroencephalogram was performed in the [facility] Med/Surg Floor or ICU. The 10/20 international system of electrode placement was used and bipolar and referential electrode montages were recorded. In addition to EEG the patient was monitored for EKG and lateral/vertical eye movements. Activation procedures of photic stimulation and hyperventilation were performed if applicable. Video was used during activation procedures and during events where applicable. The duration of the recording was 30 minutes. DESCRIPTION OF EEG: The patient was noted to be awake, drowsy, and asleep during the recording. During maximal wakefulness a 9-Hz posterior background rhythm was present which was well-modulated, symmetrical, reactive to eye opening, and of moderate voltage. With eye opening the background activity changed to a low voltage mixture of alpha, beta, and occasional theta range frequencies. Faster frequencies were present in the bilateral anterior head regions. There was a normal anterior-posterior voltage gradient. During drowsiness, there was attenuation of the posterior dominant background rhythm and vertex waves. Brief stage II sleep was present with symmetrical sleep spindles, K-complexes, and vertex waves. Activating Procedures: Photic stimulation was performed which produced a symmetrical posterior driving response at various flash frequencies. Hyperventilation was not performed. EKG: EKG revealed normal sinus rhythm. INTERPRETATION: This EEG is normal during the awake and sleep states as well as during photic stimulation. PRIOR EEG: none CLINICAL CORRELATION: No focal regions of cerebral dysfunction or epileptiform activity was present. Epilepsy remains a clinical diagnosis and a normal EEG does not rule out epilepsy. Clinical correlation is advised. Debra Gutierrez MD
[2022-06-08 12:22] VITALS: BP 94/64; PULSE 66; RESP 18; TEMP 36.4; O2SAT 96
[2022-06-08 15:02] VITALS: PULSE 70
--- NOTE | 2022-06-08 15:02 | W.PM.DS.N ---
Date of service: 06/08/22 Time of Service: 15:17 DS: Diagnosis Discharge Diagnosis (1) Syncope: Status: Chronic (2) Elevated troponin: Status: Acute (3) Acute electrocardiogram changes: Status: Acute (4) Fall: Status: Acute (5) Nonsustained supraventricular tachycardia: Status: Acute (6) Nonsustained paroxysmal ventricular tachycardia: Status: Resolved (7) Hypokalemia: Status: Resolved (8) Hypomagnesemia: Status: Acute (9) Lip injury: Status: Acute (10) Transient neurologic deficit: Status: Resolved (11) QT prolongation: Status: Resolved Discharge Plan Disposition Patient Disposition: HOME Condition: Stable Discharge Details Reason For Visit: Vertigo, Elevated Troponin Admit Date/Time: 06/04/22 21:24 Admit Provider: Kwabena Treadwell Attending Provider: Kwabena Treadwell Primary Care Provider: Ramone Dennison Hospital Course Hospital Course: Ms Hernandez is a 81 year old female with no PMHx other than OA, who was admitted to [facility] hospitalist service on 06/04/22 after syncope resulting in a fall preceded by an episode of confusion. When the patient was waking up from her syncopal episode, EMS felt she had LUE weakness. The patient had evidence of inferolateral T wave inversions which were likely present on her original EKG but appeared more impressive on following EKGs due to lead placement. She also had evidence of borderline elevated troponins. There was concern for QT prolongation as well. She had episodes of both nonsustained SVT and Vtach, of which she was asymptomatic. She was initiated on aspirin and beta sandip. Her hypokalemia and hypomagnesemia were treated. Cardiology at [facility] was consulted and felt the patient did not have a true ACS. Echocardiogram and continued observation on telemetry were recommended. There was no role for anticoagulation. The patient did have an echocardiogram, which did not show any concerning findings. Her LVEF was 60%. She had normal wall motion. There was no hemodynamically significant valvular disease. Her RVSP was 25 mmHg. She was evaluated by cardiology in person who recommended a neurology consultation which was sought. The patient underwent MRI of the brain and MRA of the brain and neck which were negative for any acute process, given the report of transient LUE weakness by EMS. She also had a negative EEG. The patient is being discharged home today with a cardiac event recorder, a referral for an outpatient stress test. She will need to follow up with her PCP in 1-2 weeks and with neurology in 4-6 weeks. She should have bloodwork done in 1 week. Care for patient as well as completion of her discharge summary on day of discharge took 45 minutes. Home Meds and New Rx's Prescriptions: New aspirin 81 mg Tablet,Delayed Release (Dr/Ec) 81 mg PO DAILY Qty: 30 0RF potassium chloride [Klor-Con M20] 20 mEq Tablet,Er Particles/Crystals 40 meq PO DAILY Qty: 30 0RF metoprolol tartrate 25 mg Tablet 12.5 mg PO BID Qty: 30 0RF Continued calcium carb and citrate-vitD3 [Citracal-D3 Slow Release] 1 EACH tablet extended release 1 ea PO BID multivitamin [Daily Multi-Vitamin] 1 EACH tablet 1 tab PO DAILY glucosam-chond [id number] ac 1 EACH capsule 2 cap PO DAILY diphenhydramine-acetaminophen [Tylenol PM Extra Strength] 25-500 mg Tablet 2 tab PO HS PRN Discharge Instructions Instructions: Metoprolol (By mouth), Supraventricular Tachycardia (DC), Heart Healthy Diet (DC), Hypokalemia (DC), Syncope (DC), Cardiac Stress Test (DC) Additional Instructions: Return to the hospital with any more fainting spells, if you have a fever, bleeding, chest pain, or shortness of breath. Follow up with your PCP in 1-3 weeks. Follow up for your cardiac stress test as outpatient. Bloodwork in 1 week. Stand Alone Forms: Nursing Discharge Form Referrals: Ramone Dennison [Primary Care Provider] - (A nurse from the office will give you a call with an Appoinment ) Debra Gutierrez MD [ [facility] STAFF PHYSICIAN] - 07/08/22 10:30 am (syncope - 4-6 weeks) Activity:: Activity as Tolerated Equipment/Supplies:: cardiac event recorder Diet:: heart healthy Discharge Orders Discharge Orders: Discharge Order (Routine); Ordered 06/08/22 Ordered By: Christine Roe Other Ambulatory Orders: Basic Metabolic Panel (Routine) Timeframe: 20220615 Facility: [facility] - Location: Laboratory Outpatient - [facility] Ordered By: Christine Roe Cardiac Event Recorder (Routine) Timeframe: 1 Day Facility: [facility] - Location: Respiratory Therapy Ordered By: Christine Roe Magnesium (Routine) Timeframe: [id number] Facility: [facility] - Location: Laboratory Outpatient - [facility] Ordered By: Christine Roe NM MPI rest & stress grp (Routine) Timeframe: 2 Weeks Facility: [facility] - Location: DIAGNOSTIC IMAGING Ordered By: Christine Roe DS: Summary Time Spent with Patient providing and/or coordinating discharge services: Greater than 30 minutes Status at Discharge Functional status at discharge: independent ambulation Overall status at discharge: patient is back to baseline Mental Status: mental status grossly normal Speech and Movement: speech and movement normal Mood: congruent mood Affect: normal affect Exam Narrative Exam Narrative: General: Pleasant elderly female, A&Ox3, NAD HEENT: EOMI, MMM, L lower lip ecchymosis/abrasion Heart: not auscultated Lungs: nonlabored breathing Abdomen: nondistended Extremities: no edema BLEs Psych Mental Status: mental status grossly normal Speech and Movement: speech and movement normal Mood: congruent mood Affect: normal affect DS: Data Vitals/I&O Vitals and I&O: Vital Signs Temperature 36.4 C L 06/08/22 12:22 Temperature Source Tympanic 06/08/22 12:22 Pulse 66 06/08/22 12:22 Pulse Rhythm Regular 06/08/22 07:50 Pulse 66 06/06/22 08:39 Respiratory Rate 18 06/08/22 12:22 Respiratory Effort Non-Labored 06/08/22 07:50 Respiratory Depth Normal 06/08/22 07:50 Respiratory Pattern Normal 06/08/22 07:50 Blood Pressure 94/64 L 06/08/22 12:22 Blood Pressure Mean 83 06/06/22 08:39 Blood Pressure Position Supine 06/05/22 13:18 Pulse Oximetry 96 06/08/22 12:22 Oxygen Delivery Method Room Air 06/08/22 12:22 Oxygen Flow Rate 0 06/08/22 12:22 Pain Level 0 06/07/22 22:48 Comment 06/08/22 08:00 Intake & Output 06/07/22 06/08/22 06/08/22 23:59 11:59 23:59 Intake Total 400 / 880 490 / 490 Balance 400 / 880 490 / 490 Weight 63.9 kg Intake: Oral 400 / 880 490 / 490 Other: Urine Appearance Clear Comment voids independently Voiding Methods Toilet Toilet Data Completed and Pending Completed studies during hospitalization [Text1]: CT head w/o contrast: 06/04/22: No acute intracranial findings on this noninfused CT scan of the brain. No significant change compared to prior CT scan of 04/07/2021. Brain MRI 06/07/22: No significant acute intracranial findings on this noninfused MRI scan of the brain.? Scattered white matter foci consistent chronic small vessel disease but no evidence of acute infarct.? No hemorrhage. Brain MRA 06/08/22: 1. Patent intracranial arteries.? No obvious stenosis. 2. No aneurysms evident. Neck MRA 06/08/22: 1. Patent carotid arteries in the neck.? No significant stenosis evident. 2. Vertebral arteries are patent bilaterally and of equal caliber. 3. The left vertebral artery is noted to originate as an independent vessel off the aortic arch, this being a variant of normal. Echo 06/07/22: Normal left ventricular wall thickness and chamber size.? Estimated ejection fraction is 60%.? Wall motion is normal Normal right ventricular size and systolic function The left atrium is mildly dilated.? The right atrium is normal in size Aortic valve is trileaflet and sclerotic.? There is no aortic stenosis.? There is trace aortic regurgitation Normal mitral valve with mild regurgitation Normal tricuspid valve with mild regurgitation.? Estimated right ventricular systolic pressure is 25 mmHg PFSH All Active Problems (Updated 06/08/22 @ 15:20 by Christine Roe MD) Lip injury (Acute) Hypomagnesemia (Acute) Acute electrocardiogram changes (Acute) Nonsustained supraventricular tachycardia (Acute) Discharge planning issues (Acute) DVT prophylaxis (Acute) Acute electrocardiogram changes (Acute) Fall (Acute) Laceration of scalp (Acute) Elevated troponin (Acute) Syncope (Chronic) Arthritis of left knee (Chronic) Osteoarthritis of knee (Acute 06/04/14) H/O surgical procedure (Chronic) a. cataract surgery b. 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 SHAFER s/p manipulation 02/24/2018 Social History Smoking/Tobacco Use Status: Former Tobacco Use Smoking risk assessment performed?: Yes Alcohol Intake: current Alcohol Intake frequency: 0-2 drinks per day Drug use: Never Substance use type: does not use Do you feel safe at home: Yes Do you feel safe in your relationship?: Yes
--- NOTE | 2022-06-08 15:59 | CHAPLAIN ---
While I was speaking with Justine and her , Rob, Dr. Roe came in to let Justine know she is being discharged. She was very happy about this. Rob is deaf and so it is important for Justine to be home with him. 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 Justine said she was visited by on-call shoe sticks repairer yesterday and had a nice conversation.
[2022-06-08 16:03] VITALS: PULSE 60
--- NOTE | 2022-06-08 20:25 | PDOC.CMDIS ---
- If Service Date Differs Date of service: 06/08/22 Time of Service: 20:25 LACE Index Scoring Tool - Questions: Length of Stay (in days): 4 - 6 Acuity (Admit via E.D.?): Yes E.D. Visits: 1 - Answers: Total Score: 8 Risk of Readmission: Low Risk Care Management Discharge Reason for Hospitalization: Vertigo, Elevated Troponin. Discharge Plan: Gricelda will discharge home with no new services and will follow up with her PCP, cardiology and plan of care as instructed. She will be driven home by her via private vehicle. Patient/Family Education Needs: Review of discharge instructions including medications and limitations; discuss Ask Me Three.
== END 2022-06-08 16:10 | disposition home or self-care (01) | DRG 92 ==
LOC: ER 21:35 → ICU 22:07 → MS 06-06 09:43
PROVIDERS: Internal Medicine; Admitting Provider Family Medicine; Emergency Provider Registered Nurse Emergency; PCP Family Medicine; Visit Provider Family Medicine
DX: R29.818 Other symptoms and signs involving the nervous system (principal); I47.1 Supraventricular tachycardia; I47.29 Other ventricular tachycardia; I67.89 Other cerebrovascular disease; R55 Syncope and collapse; R94.31 Abnormal electrocardiogram [ECG] [EKG]; S01.511A Laceration without foreign body of lip, initial encounter; R74.8 Abnormal levels of other serum enzymes; E87.6 Hypokalemia; E83.42 Hypomagnesemia; W19.XXXA Unspecified fall, initial encounter; M17.12 Unilateral primary osteoarthritis, left knee; Z96.651 Presence of right artificial knee joint
CPT/HCPCS: 36415; 70544; 70547; 80048; 80053; 80061; 87635; 93005; 93270; 93306; 95816; 95819; 96360; 97161; 97530; 99223; 99232; 99285; J1650; 70450; 70551; 81003; 83036; 83735; 84484; 85025; 93010; 99222; 99233; 99239; J3480; J3490

== ENCOUNTER → 2022-07-08 09:56 | Outpatient (BNVA) | payer MEDICARE, OTHER, SELFPAY | PROVIDERS: PCP Family Medicine; Referring Provider Family Medicine; Visit Provider Psychiatry & Neurology Neurology | DX: Z79.82 Long term (current) use of aspirin (principal); R55 Syncope and collapse | CPT/HCPCS: 99214 ==

== ENCOUNTER 2022-07-13 09:08 | Outpatient (CLI) | payer MEDICARE, OTHER, SELFPAY ==
--- NOTE | 2022-07-13 10:29 | W.CARDEVENT ---
Date of service: 07/13/22 Time of Service: 10:29 Cardiac Event Recorder Referring Provider:: Ramone Dennison Indications:: Syncope Cardiac Event Note: This is a 30-day cardiac event monitor, reportedly ordered for syncope Predominant rhythm was sinus with an average heart rate of 66. Minimum was 56, maximum 105 There were rare atrial and ventricular ectopic beats There were rare self-limited atrial runs. The longest of these was 8 beats in duration, not symptomatic There was no atrial fibrillation, no high-grade AV block, no pauses greater than 3 seconds There were several brief runs of nonsustained ventricular tachycardia. These were generally 3 beats in length. The longest of these was 7 beats in duration. None of these were symptomatic
== END 2022-07-13 09:09 | disposition home or self-care (01) ==
LOC: CARDOPNVT 09:08
PROVIDERS: PCP Family Medicine; Visit Provider Internal Medicine Cardiovascular Disease
DX: I49.1 Atrial premature depolarization (principal); I47.20 Ventricular tachycardia, unspecified
CPT/HCPCS: 93272

== ENCOUNTER 2024-01-17 09:00 | Inpatient (IN) | payer MEDICARE, SELFPAY ==
[2024-01-17] VITALS (28 sets, daily range): BP systolic 110–155; BP diastolic 48–84; PULSE 58–81; RESP 14–20; TEMP 36.5–37.3; O2SAT 92–99; BMI 22.0
--- NOTE | 2024-01-17 09:00 | RT.EKG_ITS ---
APPROVED REPORT Exam: Resting ECG Reason for Exam: Preop R fx hip Patient Location: I HR:59 bpm ECG Measurements Heart Rate 59 AXIS NH 193 P 53 QRSd 89 QRS -30 QT 451 T -43 QTc 447 Conclusion Sinus bradycardia...rate< 60 Left axis deviation...QRS axis (-30,-90) Nonspecific T abnormalities, diffuse leads...T <-0.10mV, ant/lat/inf
--- NOTE | 2024-01-17 09:05 | NUR.NOTE ---
Nursing Note: Pateint arrived to floor at 0853. Alert and orientated, 9/10 pain, keenan catheter in place, right IV in place, 2 liters of oxygen via NC. Provider updated that patient has arrived awaiting orders, see flow sheet for vitals and assessment.
--- NOTE | 2024-01-17 10:13 | OCONE_ITS ---
Date of service: 01/17/24 Time of Service: 10:48 History of Present Illness History of Present Illness Chief Complaint: Right Hip Pain Narrative: Gricelda is an 83-year-old female who fell while walking her dog yesterday. She went on her right hip had immediate pain. She is unable to ambulate. She was taken to [facility] diagnosed with a displaced intertrochanteric proximal femur fracture on the right side. She is from this region and asked to be transferred back to [facility], her local hospital. She had no other medical concerns. She was thus transferred back to the hospital service. She denies chest pain or shortness of breath. She does report having a previous right knee replacement and a previous left intertrochanteric hip fracture fixed some years ago with a cephalomedullary screw device in December 2014. Consults Consult date: 01/17/24 Requesting physician: Nicolasa Foster Consult Reason Right Hip Fracture Assessment and Plan Assessment and plan (1) Fracture, intertrochanteric, right femur: Status: Acute Assessment and plan: Gricelda is an 83-year-old female who suffered a fall resulting in a intertrochanteric fracture about the right proximal femur. Given the displaced nature of this fracture I recommended fixation. This is similar to the fixation that she had on the left side although I would use a short intramedullary nail rather than a sliding hip screw device. I reviewed the procedure with her. I discussed risk to include bleeding, infection, pain, stiffness, malunion, nonunion, hardware prominence, hardware failure, blood clot, cardiopulmonary demise. Despite these risk, she elects to proceed. Also discussed the necessary time for rehabilitation and how she will be able to have decreased pain with mobilization and will be allowed to walk and ambulate although we will be challenging and take some time for her to return to normal. She will remain NPO. Appreciate hospitalist admission and management. Surgery this afternoon. Review of Systems All systems reviewed & are unremarkable except as noted in HPI and below PFSH All Active Problems (Updated 01/17/24 @ 10:51 by Terrance Post MD) Fracture, intertrochanteric, right femur (Acute) Lip injury (Acute) Hypomagnesemia (Acute) Acute electrocardiogram changes (Acute) Nonsustained supraventricular tachycardia (Acute) Acute electrocardiogram changes (Acute) Fall (Acute) Laceration of scalp (Acute) Elevated troponin (Acute) Syncope (Chronic) Arthritis of left knee (Chronic) Osteoarthritis of knee (Acute 06/04/14) H/O surgical procedure (Chronic) a. cataract surgery b. 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 SHAFER s/p manipulation 02/24/2018 Social History Smoking/Tobacco Use Status: Former Tobacco Use Smoking risk assessment performed?: Yes Alcohol Intake: current Alcohol Intake frequency: 0-2 drinks per day Drug use: Never Substance use type: does not use Do you feel safe at home: Yes Do you feel safe in your relationship?: Yes Exam Narrative Exam Narrative: Resting supine position in the hospital bed. No acute distress. Alert and orient x 3. No head trauma. Evaluation of right lower extremity shows a shortened and externally rotated. There is exquisite pain with any motion about the right leg, even bumping the bed causes exquisite proximal right leg pain. There is no defect of the skin. There is no signs of infection or abrasion. Well-healed incision is seen about the right knee. There is no pain to palpation about the knee itself although it causes hip pain. No effusion. No breaks in the skin. There is some mild edema distally which is comparable to contralateral side. She endorses some decrease sensation throughout the foot although similar to her baseline she reports and somewhat of the contralateral side. Faintly palpable DP PT pulse. Active do rsiflexion, plantarflexion as well as great toe extension and flexion. Results Last Vital Signs Temp 37.0 C 01/17/24 09:00 Pulse 58 L 01/17/24 09:00 Resp 18 01/17/24 09:00 BP 140/70 01/17/24 09:00 Pulse Ox 99 01/17/24 09:58 Imaging Imaging Studies: X-ray of the right hip was reviewed. This shows a displaced intertrochanteric femur fracture. There is no distal extension. There is some mild arthritic changes in the hip itself. No other suspicious lesions.
--- NOTE | 2024-01-17 12:46 | PHA.REVIEW2 ---
Pharmacy Admission Review Admission Clinical Review Admission Pharmacy Review: Fracture, intertrochanteric, right femur (Acute) No Known Allergies Allergy (Unverified 07/08/22 10:24) Resuscitation Status Full Code Height 5 ft 8 in Weight 65.771 kg Pharmacy Admission Review Renal Dosing Medications needing adjustments: Reviewed (CrCl 45.81 mL/min) List of meds needing interventions: Current medications are okay Anticoagulation DVT Prophylaxis: Reviewed (None at this time - surgery today for right hip fracture) Opiate Usage Evaluate Pain Scale/Pains Meds: Reviewed (PRN hydromorphone) Scheduled Bowel Reg ordered if on Opiates?: No (PRN Miralax) Relevant Labs Electrolytes, C-Reactive P, ESR: Reviewed (No labs for today) Cardiac Review BP, HR, EF%: Reviewed (BP and HR WNL) QTc Review QTc: Reviewed (447 from 01/16/25) IV to PO Switch IV Medications: Reviewed (cefazolin, hydromorphone and ondansetron - surgery today for right hip fracture) Home Meds Home Med List reviewed: Reviewed Relevent Home Meds Not ordered & why?: aspirin, Citracal, glucosamine and multivitamin Current Meds Current Medication Order Review: Intervened Comments: Added directions have a dash of salt prior to taking to metoprolol order. Based on home med list and prescription information. Pharmacy Antibiotic Review Pharmacy Antibiotic Activity: Reviewed, no change Comments: Cefazolin 1 dose preop for right hip fracture
[2024-01-17] MEDS: Normal Saline Flush 10 ML SYR IVP (13:00)
--- NOTE | 2024-01-17 13:35 | HPE_ITS ---
Date of service: 01/17/24 Time of Service: 10:00 Assessment and Plan Assessment and plan (1) Fracture, intertrochanteric, right femur: Status: Acute Assessment and plan: Evaluated by orthopedics * Recommended fixation due to the displaced nature of the fracture. Preoperative Instructions: * Patient will remain NPO before surgery. Lactated Ringers 125 ml/h. Indwell ing urinary catheter placed to bedside drainage. Pain management - hydromorphone 0.5 mg IV q4h prn Coordination with Orthopedics * Hospitalist admission and ongoing management, with orthopedic consult Surgical Plan: * Surgery scheduled for this afternoon. * Patient is in agreement with plan of care. Patient is a full code. (2) Hypokalemia: Status: Acute Assessment and plan: Potassium 3.3; repleted; trend (3) Hypertension: Status: Chronic Assessment and plan: Monitor VS Stable - continue metoprolol History of Present Illness History of Present Illness Chief Complaint: Fall; right hip pain Narrative: * 83-year-old female. * Past medical history significant for hypertension. * Takes daily aspirin; no other blood thinning medications reported. Chief Complaint: * Right hip pain after a fall. History of the Present Illness: * Onset and Circumstances: Patient fell to the right side while walking her dog, landing on her right hip. * Symptoms: Experienced significant pain in the right hip immediately after the fall, unable to stand or ambulate. * Associated Symptoms: Denied chest pain, shortness of breath, dizziness, fever, nausea, vomiting, diarrhea, palpitations, syncope, or head injury. * Impact: Unable to stand or ambulate due to pain. * Medications: Takes daily aspirin and metoprolol, some vitamins. Laboratory Findings in the Emergency Department: * WBC: 8.07 * Hgb: 11.9 * Glucose: 111 * Sodium: 135 * Potassium: 3.3 * Platelets: 193 Imaging Studies: * Plain films revealed a comminuted intertrochanteric hip fracture on the right side. * Chest x-ray showed no acute findings. Management and Treatment in the Emergency Department: * Received intermittent doses of IV fentanyl for pain control. * Orthopedic services were not available at [facility]. * Patient transferred via EMS to [facility] for repair of the right hip fracture. * Patient is a full code. Review of Systems All systems reviewed & are unremarkable except as noted in HPI and below PFSH All Active Problems (Updated 01/17/24 @ 13:49 by Nicolasa Foster NP) Hypertension (Chronic) Hypokalemia (Acute) Fracture, intertrochanteric, right femur (Acute) Lip injury (Acute) Hypomagnesemia (Acute) Acute electrocardiogram changes (Acute) Nonsustained supraventricular tachycardia (Acute) Acute electrocardiogram changes (Acute) Fall (Acute) Laceration of scalp (Acute) Elevated troponin (Acute) Syncope (Chronic) Arthritis of left knee (Chronic) Osteoarthritis of knee (Acute 06/04/14) H/O surgical procedure (Chronic) a. cataract surgery b. 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 Meds Allergies and Home Medications Allergies Allergy/AdvReac Type Severity Reaction Status Date / Time No Known Allergies Allergy Unverified 07/08/22 10:24 Home Medications Medication Instructions Recorded Confirmed Type vfnssotprv-rbmsitapoc-lbnnerzn-hyalur 2 cap PO DAILY 12/31/14 01/17/24 History ac 375 mg-300 mg-175 mg-2 mg cap multivitamin (Daily Multi-Vitamin 1 tab PO DAILY 12/31/14 01/17/24 History tablet) calcium carb,cit ER 600 mg-vit D3 1 ea PO BID 04/08/15 01/17/24 History 12.5 mcg (500 unit) tablet,ext.rel (Citracal-D3 Slow Release) aspirin 81 mg tablet,delayed 81 mg PO DAILY #30 tabs 06/08/22 01/17/24 Rx release metoprolol succinate 25 mg mg PO 01/17/24 History tablet,extended release 24 hr Exam Narrative Exam Narrative: Nurses note and vital signs reviewed BP 134/68, JR 64 reg, RR 14 non labored, normal work of breathing, Tmax 37.1, SPO2 93% RA Pleasant and conversant. Const General: cooperative and no acute distress Nutritional Appearance: thin Orientation: alert and oriented x3 HENMT Head: normocephalic and atraumatic Neck Neck: normal visual inspection and full ROM Resp Effort & Inspection: normal respiratory effort Auscultation: clear to auscultation bilaterally Cardio Rate: regular rate Rhythm: regular rhythm Heart Sounds: S1 normal and S2 normal GI Inspection: non-distended Palpation: soft and nontender Neuro General: no focal motor deficits Cranial Nerves: facial strength normal Cognition: normal cognition Speech: speech normal Extrem General: no pedal edema and no calf tenderness Right lower extremity: hip/thigh (shortened, externally rotated.) Details: abnormal to inspection, tenderness and swelling; no abrasions and no lacerations Results Last Vital Signs Temp 37.1 C 01/17/24 11:20 Pulse 63 01/17/24 11:20 Resp 16 01/17/24 11:20 BP 134/68 01/17/24 11:20 Pulse Ox 93 01/17/24 11:20 Time Spent Time spent with Patient: 40-54 minutes Time was spent: preparing to see the patient(eg.review tests), obtaining and/or reviewing separately otained hiistory, ordering medications,tests, procedures, referring, communicating with other health healthcare recruiter, indepentently interpreting results, counseling the patient and care coordination
--- NOTE | 2024-01-17 13:42 | W.ANESPRE ---
General Info Date of Service Date Performed: 01/17/24 Height: 5 ft 8 in Weight: 65.771 kg Body Mass Index (BMI): 22.0 Surgical Procedure: Operation Date: 01/17/24 15:15 Proposed Procedure Side Surgeon p Hip TFNA Right Terrance Post MD Meds Allergies and Home Medications Allergies Allergy/AdvReac Type Severity Reaction Status Date / Time No Known Allergies Allergy Unverified 07/08/22 10:24 Home Medication Medication Instructions Recorded smozjbgmjb-kixvegkyiy-lvblrfaf-hyalur 2 cap PO DAILY 12/31/14 ac 375 mg-300 mg-175 mg-2 mg cap multivitamin (Daily Multi-Vitamin 1 tab PO DAILY 12/31/14 tablet) calcium carb,cit ER 600 mg-vit D3 1 ea PO BID 04/08/15 12.5 mcg (500 unit) tablet,ext.rel (Citracal-D3 Slow Release) aspirin 81 mg tablet,delayed 81 mg PO DAILY #30 tabs 06/08/22 release metoprolol succinate 25 mg mg PO 01/17/24 tablet,extended release 24 hr Current Visit Medications: Current Medications Generic Name Dose Route Start Last Admin Trade Name Freq PRN Reason Stop Dose Admin Acetaminophen 0 mg 01/17/24 09:00 Acetaminophen 325 Mg Tab PO Q4H PRN PRN Hydromorphone HCl 0.5 mg 01/17/24 09:11 Hydromorphone 2 Mg/Ml Syr IVP Q4H PRN PRN Ringer's Solution 1,000 mls @ 125 mls/hr 01/17/24 09:00 IV INFUSION FRED Sodium Chloride 500 mls @ 0 mls/hr 01/17/24 09:15 Saline 500ml Bag IV DIRECTED PRN As Directed Cefazolin Sodium/Dextrose 2 gm in 50 mls @ 100 mls/hr 01/17/24 11:00 Ancef Duplex IVPB PREOP RFED Tranexamic Acid/Sodium Chloride 1,000 mg in 100 mls @ 600 mls/hr 01/17/24 11:00 IVPB PREOP FRED Potassium Chloride 20 meq in 100 mls @ 50 mls/hr 01/17/24 13:45 IVINF 01/17/24 17:44 Q2H FRED IV Miscellaneous Supplies 1 each 01/17/24 09:15 Iv Access IV DIRECTED FRED Metoprolol Succinate 12.5 mg 01/17/24 20:00 Metoprolol Cr 25 Mg Tabcr PO BID FRED Ondansetron HCl 4 mg 01/17/24 09:11 Ondansetron 4 Mg/2 Ml Vial IVP Q4H PRN PRN Polyethylene Glycol 17 gm 01/17/24 09:00 Polyethylene Glycol 3350 17 Gm Packet PO DAILY PRN PRN Constipation Sodium Chloride 0 ml 01/17/24 09:15 01/17/24 13:00 Normal Saline Flush 10 Ml Syr IVP 10 ml PRN PRN Administration PFSH Active Problems Active Problems: Problem Status Onset Code Fracture, intertrochanteric, right femur S72.141A Transient neurologic deficit R29.818 Lip injury S09.93XA Hypomagnesemia E83.42 Acute electrocardiogram changes R94.31 Nonsustained paroxysmal ventricular tachycardia I47.29 Nonsustained supraventricular tachycardia I47.1 QT prolongation R94.31 Hypokalemia E87.6 Acute electrocardiogram changes R94.31 Fall W19.XXXA Laceration of scalp S01.01XA Elevated troponin R77.8 Syncope R55 Arthritis of left knee M17.12 Osteoarthritis of knee 06/04/14 M17.10 H/O surgical procedure Z98.89 Closed left hip fracture 12/31/14 S72.002A Surgical History Surgical History Replacement of total knee joint (12/07/17) RIGHT/DR. SHAFER s/p manipulation 02/24/2018 Tobacco Smoking/Tobacco Use Status: Former Tobacco Use Alcohol Alcohol Intake: current Alcohol intake frequency: 3 or more drinks per day Alcohol type: beer Substance Use Substance use: Never Substance use type: does not use Vital Signs and Lab Results Vital Signs Most Recent Vital Signs in EMR: Most Recent Vital Signs Temp Pulse Resp BP Pulse Ox 37.1 C 63 16 134/68 93 01/17/24 11:20 01/17/24 11:20 01/17/24 11:20 01/17/24 11:20 01/17/24 11:20 Lab Results Blood Type / Crossmatch: No Data to Display Complete Blood Count: No Data to Display Complete Metabolic Panel: No Data to Display Liver Function Panel: No Data to Display Coagulation Panel: No Data to Display Cardiac Panel: No Data to Display Arterial Blood Gas: No Data to Display Venous Blood Gas: No Data to Display Pancreas Panel: No Data to Display Thyroid Panel: No Data to Display Infectious Disease: No Data to Display Blood Cultures: No Data to Display Toxicology Panel: No Data to Display Imaging and Studies Imaging and Studies Study information below may be from another EMR and interpreted by another provider. Please see original notes in EMR for more complete details. EKG Summary: EKG PATIENT NAME: Justine Hernandez UNIT #: [id number] ORDERING PROVIDER: Nicolasa Foster NP PRIMARY CARE PROVIDER: Ramone Dennison DO DATE/TIME OF SERVICE: 01/17/2438 : 1940 PERFORMING LOCATION: [place] APPROVED REPORT Exam: Resting ECG Reason for Exam: Preop R fx hip Patient Location: I HR:59 bpm ECG Measurements Heart Rate 59 AXIS TN 193 P 53 QRSd 89 QRS -30 QT 451 T-43 QTc 447 Conclusion Sinus bradycardia...rate< 60 Left axis deviation...QRS axis (-30,-90) Nonspecific T abnormalities, diffuse leads...T <-0.10mV, ant/lat/inf <Electronically signed by BUDDY ALEX MD in OV> E-Sign Date: 01/17/24 E-Sign Time: 0946 Echocardiogram Summary: Patient Name: Justine Hernandez Unit #: [id number] Loc: [place] Ordering Provider: Kwabena Treadwell M.D. Status: ADM IN Primary Care Provider: Ramone Dennison Date of Exam: 06/07/22 Sex: F Admission Date: 06/04/22 : 1940 Age: 81 APPROVED REPORT EXAM: Comprehensive 2D, Doppler, and color-flow Echocardiogram Patient Location: In-Patient [place] [employer] Machine Operator: Renee Elliott RDCS (AE) Indications: Elevated troponin, Syncope Other Information Study Quality: Adequate Conclusion Normal left ventricular wall thickness and chamber size. Estimated ejection fraction is 60%. Wall motion is normal Normal right ventricular size and systolic function The left atrium is mildly dilated. The right atrium is normal in size Aortic valve is trileaflet and sclerotic. There is no aortic stenosis. There is trace aortic regurgitation Normal mitral valve with mild regurgitation Normal tricuspid valve with mild regurgitation. Estimated right ventricular systolic pressure is 25 mmHg Wall motion Left Ventricle The left ventricle is normal size. The left ventricular systolic function is normal. The left ventricular ejection fraction is within the normal range. There is normal left ventricular wall thickness. There is normal LV segmental wall motion. There is no ventricular septal defect visualized. LVEF is 60%. Right Ventricle The right ventricle is normal size. The right ventricular systolic function is normal. The RVSP is 24.8 mmHg. Atria Left atrium is mildly dilated. The right atrium size is normal. The interatrial septum is intact with no evidence for an atrial septal defect. Aortic Valve The Aortic valve is sclerotic. Aortic valve is trileaflet. There is no aortic valvular stenosis. Trace aortic regurgitation. Mitral Valve The mitral valve is normal in structure. No evidence of mitral valve stenosis. Mild mitral regurgitation. Tricuspid Valve The tricuspid valve is normal in structure. There is no tricuspid valve stenosis. Mild tricuspid regurgitation. Pulmonic Valve Pulmonic valve is not well visualized. There is no pulmonic valvular stenosis. Trace pulmonic regurgitation. Great Vessels The aortic root is normal in size. Ascending aorta is not well visualized. Aortic arch is normal in caliber. IVC is normal in size and collapses >50% with inspiration. Pericardium There is no pericardial effusion. 2D Dimensions IVSD d PLAX 0.90 cm F: 0.6-1.0LV Vol A2C d MOD 65.0 mL LVPW d PLAX 0.95 cm F: 0.6 - 1.0LV Vol A4C d MOD 79.5 mL LVID d PLAX 4.44 cm F: 3.8 - 5.2LA vol/ BSA A2C s A-L45.0 mL/m2 LVDs 2.95 cm F: 2.2 - 3.5LA vol/ BSA A4C s A-L39.7 mL/m2 Ao Root d 3.00 cm F: 2.7 - 3.3LA Vol/ BSA Biplane s A-L 44.4 mL/m2 RA Area A4C15.85 cm2LA Area A4C s MOD 22.35 cm2 RA Vol/ BSA A4C s A-L 21.1 mL/m2LA Area A2C s MOD 22.65 cm2 LV EF Teichholz 60.9 %LV EF A4C MOD 60.0 % LVEF (Ornelas's)60.83 % F: 54 - 74LV EF A2C MOD 60.0 % LV Xbzaqy06.61 mL F: 46 - 106LV EF Biplane MOD 60.8 % LV Volume Index32.92 mL/m2 F: 29 - 61SV44.61 mL LV Vol Biplane MOD 73.3 mLSV Index25.48 mL/m2 FS32.40 % M-Mode TAPSE 2.63 cm (M/F) >1.7 LV Diastology MV E' medial0.059 (>0.07 m/s)E/A Ratio 0.9 LV E/e MED7.95 (<14)MV E Vmax 0.47 (0.4-1.3 m/s) MV E' lateral0.077 (>0.1 m/s)MV A Vmax 0.55 (0.4-1.3 m/s) LV E/e LAT6.10 (<14)MV E/A Ratio 0.81 MV E/E' medial 7.99 MV E/E' lateral6.12 Aortic Valve LVOT Area3.33 cm2AoV Area Vmax2.03 cm2 LVOT Vmax 1.01 m/sAoV Area/ BSA (Vmax)1.16 cm2/m2 LVOT Mean Anthony.0.68 m/sAVA Mean Anthony.2.00 cm2 LVOT Peak Grad 4.1 mmHgAVA Mean Anthony. Index1.14 cm2/m2 LVOT Mean Grad 2.2 mmHgAR DT 1634 msec LVOT VTI0.240 mAR PHT 474 msec LVOT Diam s 2.05 cm AoV Vmax1.65 m/s Velocity Ratio 0.61 AoV Mean Anthony.1.14 m/s AoV Peak Grad10.9 mmHg LVOT SV 79.79 mL AoV Mean Grad5.7 mmHg AoV VTI0.359 m AoV Area VTI2.22 cm2 AoV Area/ BSA (VTI)1.27 cm/m2 Mitral Valve MV DT 377 (160-240 msec) MV EJW560 msec MV Area PHT 2.01 cm2 MV VTI 0.262 m MV Area VTI 3.04 (4.0-6.0 cm2) Pulmonary Valve PV Vmax 0.72 (0.5-1.5 m/s)RVOT Peak Gr.0.88 mmHg PV Peak Grad 2.1 mmHgRVOT Mean Gr.0.45 mmHg PV Mean Grad 1.2 mmHgRVOT VTI0.091 m PV VTI 0.134 mRVOT Vmax 0.47 m/s Tricuspid Valve TR Peak Grad 21.7 mmHgTR Vmax 2.33 m/s RA Pressure 3.00 mmHg RVSP (TR) 24.8 mmHg Ordered By: Kwabena Treadwell M.D. CC: Dictated By: Buddy Alex M.D. 06/07/22 1105 <Electronically signed by Buddy Alex M.D. in OV> 06/07/22 1114 Transcribed By: Buddy Alex MD This is privileged, confidential information intended only for the provider named. Any use or distribution by any person other than this provider is strictly prohibited. If you receive this report in error, please notify us immediately at [phone] and return the original report to us at the address above. Thank-you. Anesthesia Assessment and Plan Anesthesia History Personal History: No History of Anesthesia Complications Family History: No Family History of Anesthesia Complications Exercise Tolerance Exercise Tolerance: Metabolic Equivalents>4 Pertinent Negatives Pertinent Negatives: No Symptoms of GERD, No Major Pulmonary Symptoms or Complaints and No History of CVA/TIA Cardiac & Pulmonary Exam Cardiac Exam: Normal S1/S2 Heart Sounds Pulmonary Exam: Clear Bilateral Breath Sounds Implantable Cardiac Device Does patient have a Pacemaker or an ICD?: No Airway Exam Known Difficult Airway: No Mallampati Class: 2 Mouth Opening: Normal (> 3cm) Thyromental Distance: Greater than 3 cm Neck Range of Motion: Full ROM Neck Circumference: Normal Teeth Condition: Generalized Poor Dentition and Removable Dentures/Plates Lower (partials and left at home) ASA Classification ASA Score: ASA 2 Emergency Case?: No NPO Status NPO Status: NPO Clears >2 hours, Solids >8 hours Anesthesia Plan Resuscitation Status: Full Code Anesthesia Technique: General Anesthesia Airway Planned: Endotracheal Tube Monitors Used: Standard Monitors
[2024-01-17] MEDS: Lactated Ringers 1,000 ML 30 ML IV (14:18)
[2024-01-17 14:36] LABS: Bilirubin Negative (Negative); Blood Trace-intact (Negative); Clarity Clear (Clear); Glucose Negative (Negative); Ketones 40 mg/dL (Negative); Leukocyte Esterase Trace (Negative); Nitrite Negative (Negative); Urobilinogen 0.2 mg/dL (Up to 0.2)
[2024-01-17 14:43] LABS: Bacteria Negative HPF (Negative); C & S Indicated? No; Casts Negative LPF (Negative); Crystals Negative HPF (Negative); Epithelial Cells Rare HPF (Negative); Mucus Negative (Negative); RBC 0-2 HPF (0-2)
[2024-01-17] MEDS: ceFAZolin 2 GM/50 ML BAG IVPB (14:49)
[2024-01-17] MEDS: TRANEXAMIC ACID/SOD. CHL. 1,000 MG/100 ML BAG 100 MG (14:58)
--- NOTE | 2024-01-17 15:17 | DI.RAD_ITS ---
Exam(s) XR HIP RT IN OR EXAM: XR HIP RT IN OR CLINICAL HISTORY: Fracture, intertrochanteric, right femur. TECHNIQUE: 2D and realtime digital imaging was performed. Fluoroscopy was provided in the OR. COMPARISON: CR XR Hip 2-3 Views Right from 01/16/2024 FINDINGS: A hard copy image shows placement of an intramedullary jason and nail in the proximal femur for fractur e fixation. The alignment is satisfactory. Please see procedure note for details. Fluoro time: 44.8seconds RADIATION DOSE DELIVERED: yusuf Moreland=4.83 mGy
--- NOTE | 2024-01-17 15:35 | W.PM.OP ---
Date of service: 01/17/24 Time of Service: 14:45 Operative Note Operative Note DATE OF PROCEDURE: 01/17/24 PRE-OP DIAGNOSIS: Right Intertrochanteric Hip Fracture POST-OP DIAGNOSIS: same PROCEDURE: Right - Intramedullary Fixation of Proximal Femur Fracture SURGEON: Terrance Post FORM TAMPING MACHINE OPERATOR: Barbara Dalal ANESTHESIA TYPE: General LMA/ETT Refer to Anesthesia Record ESTIMATED BLOOD LOSS: 100 PATHOLOGY: none sent COMPLICATIONS: None Patient was transported to: PACU Patient's condition: stable Implants: Depuy-Synthes TFNA 12mm x 170mm Indications: Gricelda who presented to the Emergency Department after a fall. X-rays confirmed the diagnosis of a right intertrochanteric fracture of the proximal femur. I reviewed the possible treatment options and given the fracture of the femur, I recommended operative fixation. I discussed the technical details of the surgery. I reviewed the risks such as bleeding, infection, pain, stiffness, malunion, nonunion, hardware prominence, hardware faiilure, malrotation, avascular necrosis, blood clot. Despite these risks, Gricelda agreed to proceed. Findings: There was a fracture of the proximal femur which was able to be reduced with traction and internal rotation and external manipulation. Procedure Description: Gricelda was taken back to the operating room. A general anesthestic was then administered. The feet were wrapped with cast padding and Coban and then placed into the boot liners and then into the boots. Care was taken to protect the skin and make sure the heels were fully down and the boots were stable. The patient was then positioned onto the HANA table. Both legs were held in a neutral position. SCDs were applied. The patient was then slid down onto a perineal post. The arm of the operative side was then placed across the chest and secured. The nonoperative leg was scissored. A gentle reduction was then performed with traction and internal rotation and gentle external manipulation. Prophylactic antibiotics in the form of Cefazolin were administered. 1g of Tranxemic Acid was given intravenously within 30 minutes of incision. The right leg was then prepped with Chloraprep and draped in a standard fashion with shower-curtain type drape with Iodine impregnated skin protection. A timeout to confirm correct identity, side and site, procedure, allergies, anesthesia, and medical concerns was performed. Using fluoroscopy, the starting point was marked over the lateral hip, proximal to the tip of the greater trochanter. A 3cm incision was made through skin and the fascia of the gluteus musculature until the tip of the trochanter was palpable. The starting wire was placed onto the tip, just slightly on the media aspect, and centered in the AP plane. Using a gavino, the starting guide wire was buried into the bone. A lateral x-ray confirmed appropriate position and the guidewire was advanced to the level of the lesser trochanter. With a tissue protector, the proximal femur was opened with the opening reamer. The short TFNA was chosen for this case and a Synthes TFNA [id number] nail was selected and opened on the back table. The nail was assembled to the aiming arm on the back table and confirmed to be aligned with the triple sleeve for blade insertion. Using manual force the nail was advanced into the femur. A few light mallet blows advanced the nail to its appropriate position. The triple sleeve was inserted through the targeting arm and the skin, soft tissue, and IT band was then incised. The triple sleeve was advanced down to the lateral femur. A guidewire was advanced into the femoral head where it was noted to be centered. A lateral x-ray was used to confirm centered positioning on the lateral. Happy with the length of the guidewire, this was measured. A 105mm helical blade was opened. The lateral cortex was opened and the path of the blade was reamed with a tapered reamer to appropriate depth. The helical blade was malletted into position and confirmed to be appropriately located on fluoroscopy. The set screw was advanced to a half turn shy of fully tightened, allowing for the helical blade to slide. The fracture was compressed before removing the targeting device. The targeting device was removed. AP and lateral x-rays of the hip confirmed appropriate positioning within the femur and with good alignment of the fracture. Using the targeting arm, the skin was incised for placement of the distal locking screw. The trochar was inserted through the skin and IT band down onto the lateral cortex of the femur. The 4.2mm drill was advanced across the femur and through the nail. This was measured and an appropriately sized 5.0mm screw was placed. The targeting arm was removed. Final x-rays were obtained. The wounds were thoroughly irrigated. A cocktail consisting of 123mg of Ropivacaine, 0.25mg of Epinephrine, 0.04mg of Clonidine, and 15mg of Ketorolac, diluted to 50cc was injected throughout the wounds both deep and superficially. The deep fascia of the proximal two wounds was reapproximated with a 0 Vicryl. The deep tisses were closed with a 2-0 Vicryl and the skin was closed with a running subcuticular Monocryl. The wounds were dressed with a Mepilex silver dressing. At the end of the case, all counts were correct. Gricelda tolerated the procedure well without known complication and was taken to the PACU for recovery. Physical therapy will start post-operatively, weigh-bearing as tolerated with assistive devices. Anticoagulation will start within 12-24 hours. 3 doses of post-operative antibitiocis for prophylaxis will be administered.
--- NOTE | 2024-01-17 16:17 | NUR.NOTE ---
Nursing Note: Patient arrived to floor, alert and oriented, right sided drgs x2, dry and intact, patient reports positive pain control, new IV placed in left forearm, keenan patent with yellow urine.
[2024-01-17] MEDS: POTASSIUM CHLORIDE 20 MEQ/100 ML BAG 50 MEQ IVINF (17:07)
[2024-01-17 17:08] LABS: Abs Immature Grans 0.04 10^3/uL (0.0-0.06); Absolute Basophil Count 0.02 10^3/uL (0.0-0.2); Absolute Monocyte Count 0.33 10^3/uL (0.1-0.8); Absolute Neutrophil Count 7.81 10^3/uL (1.2-6.7); Basophils % 0.2 %; HCT 35.3 % (36.0-46.0); HGB 11.8 g/dL (11.2-15.7); Immature Grans % 0.5 %; Lymphocytes % 6.8 %; MCH 33.9 pg (27.0-33.0); MCHC 33.4 % (32.0-36.0); MCV 101 fL (80-95); MPV 9.8 fL (8.0-11.0); Monocytes % 3.8 %; Neutrophils % 88.7 %; Platelet Count 179 10^3/uL (130-400); RBC 3.48 10^6/uL (3.93-5.22); RDW 11.7 % (11.7-14.6); RDW-SD 43.6 fL
[2024-01-17 17:18] LABS: Anion Gap 9.1 mmol/L (3-11); BUN 12 mg/dL (7-18); CO2 27.9 mmol/L (21.0-32.0); CREATININE 0.7 mg/dL (0.55-1.02); Calcium 8.4 mg/dL (8.5-10.1); Chloride 99 mmol/L (98-107); Estimated GFR 86.83 (mL/min/1.73m2); Glucose 151 mg/dL (74-106); Magnesium 1.9 mg/dL (1.8-2.4); Potassium 3.6 mmol/L (3.5-5.1); Sodium 136 mmol/L (136-145)
--- NOTE | 2024-01-17 18:00 | W.ANESPOSTOP ---
Postoperative Evaluation Date, Time and Location Date Performed: 01/17/24 Time Performed: 15:55 Patient Location: PACU Vital Signs Most Recent Imported Vital Signs: Most Recent Vital Signs Temp Pulse Resp BP Pulse Ox 36.7 C 72 18 129/67 92 01/17/24 17:16 01/17/24 17:16 01/17/24 17:16 01/17/24 17:16 01/17/24 17:16 Pain Score Most Recent Pain Score: Most Recent Pain Score Pain Level 0 01/17/24 17:16 Assessment Mental Status: Awake (Alert & Oriented to Patient Baseline) Airway and Respiratory Function: Patent airway with normal (patient baseline) respiratory exam Cardiovascular Function: Hemodynamically Stable Hydration Status: Adequately Hydrated Nausea & Vomiting: No Nausea or Vomiting Pain: Pt. Denies Any Pain Peripheral Nerve Block: Patient did not receive a nerve block
[2024-01-17] MEDS: Metoprolol CR 25 MG TABCR 12.5 MG PO (21:15)
[2024-01-17] MEDS: ceFAZolin 1 GM/50 ML BAG IVPB (21:48)
[2024-01-18 00:20] VITALS: BP 114/64; PULSE 74; RESP 16; TEMP 37; O2SAT 96
[2024-01-18 04:44] VITALS: BP 130/66; PULSE 76; RESP 18; TEMP 36.7; O2SAT 96
[2024-01-18] MEDS: Normal Saline Flush 10 ML SYR IVP ×3 (05:32→14:32)
[2024-01-18] MEDS: Normal Saline 500 ML 30 ML IV (05:32)
[2024-01-18] MEDS: ceFAZolin 1 GM/50 ML BAG IVPB ×2 (05:33→14:26)
[2024-01-18 06:25] LABS: Abs Immature Grans 0.03 10^3/uL (0.0-0.06); Absolute Basophil Count 0.02 10^3/uL (0.0-0.2); Absolute Eosinophil Count 0.01 10^3/uL (0.0-0.7); Absolute Lymphocyte Count 2.03 10^3/uL (1.2-3.4); Absolute Monocyte Count 1.01 10^3/uL (0.1-0.8); Absolute Neutrophil Count 7.36 10^3/uL (1.2-6.7); Basophils % 0.2 %; Eosinophils % 0.1 %; HCT 29.5 % (36.0-46.0); Immature Grans % 0.3 %; Lymphocytes % 19.4 %; MCH 34.4 pg (27.0-33.0); MCHC 33.9 % (32.0-36.0); MCV 101 fL (80-95); MPV 9.9 fL (8.0-11.0); Monocytes % 9.7 %; Neutrophils % 70.3 %; Platelet Count 157 10^3/uL (130-400); RBC 2.91 10^6/uL (3.93-5.22); RDW 11.9 % (11.7-14.6); RDW-SD 43.8 fL; WBC 10.46 10^3/uL (4.4-10.8)
[2024-01-18 06:47] LABS: Anion Gap 9.3 mmol/L (3-11); BUN 20 mg/dL (7-18); CO2 24.7 mmol/L (21.0-32.0); CREATININE 0.9 mg/dL (0.55-1.02); Calcium 8.1 mg/dL (8.5-10.1); Chloride 99 mmol/L (98-107); Estimated GFR 64.23 (mL/min/1.73m2); Glucose 151 mg/dL (74-106); Magnesium 1.9 mg/dL (1.8-2.4); Potassium 4.1 mmol/L (3.5-5.1); Sodium 133 mmol/L (136-145)
[2024-01-18 07:29] VITALS: BP 119/91; PULSE 70; RESP 18; TEMP 37.6; O2SAT 96
[2024-01-18] MEDS: Metoprolol CR 25 MG TABCR 12.5 MG PO (07:51)
--- NOTE | 2024-01-18 09:56 | INITIAL_ITS ---
Date of service: 01/18/24 Time of Service: 09:56 Care Management Initial Assmt Initial Assessment Reason for Hospitalization: hip fracture Functional Status/Living Situation Patient Presentation: Gricelda was sitting up in bed when CM met with her. She was polite and agreeable to conversation. Gricelda talked a bit about her family, noting that her has some health issues. She also shared the fact that she lost her son to cancer in 2012. It as a long, painful and took a heavy toll on the entire family. Gricelda also talked about the home she and her have. They have 360 degree views from much of the home and truly love it there. Gricelda anticipates needing to remain hospitalized until Tuesday. She did work with PT today but did not do as well as she had hoped. 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) Instrumental Activities of Daily Living (ADLs): Independent Medications Medication Management: No Issues/Barriers identified Physical Functioning/Mobility Assistive Device: will use a walker since fracturing hip has w/c, canes, walkers etc Advance Directives Advance Directives: Do you have an Advance Directive: N 06/08/22 10:41 AD On File at [facility]: N 06/08/22 10:41 Date Asked 01/17/24 01/17/24 08:59 AD Date Reviewed COLST On File at [facility] COLST Date Scanned Code Status Resuscitation Status Full Code Portal Pt does not currently have a portal and education provided: No Insurance Coverage/Financial Issues Insurance: medicare [place], Medicare supplement ACO Member: No Care Team Visit Care Team Role Provider Type Ramone Dennison Primary Care Provider OSTEOPATHIC DOCTOR Terrance Post MD Other Providers [facility] STAFF PHYSICIAN Tristan Gao Other Providers OTHER Rob Wiggins Attending Provider [facility] STAFF PHYSICIAN Yan Tovar Admit Provider NON-[facility] STAFF PHYSICIAN Discharge Potential Discharge Needs: Surgical F/U Appt Anticipated Barriers to Discharge: None Identified Patient/Family Education Needs: Review discharge instructions, discuss Ask Me Three Transportation: Private vehicle Plan: Anticipate Gricelda will be discharged home, possibly with new home health ser vices, when medically cleared. She will follow up with her surgeon and plan of care and transport with family. CM will follow and continue to assess for discharge needs. PFSH All Active Problems (Updated 01/18/24 @ 13:37 by Ghislaine Last NP) Discharge planning issues (Acute) DVT prophylaxis (Acute) Hypertension (Chronic) Fracture, intertrochanteric, right femur (Acute) Lip injury (Acute) Hypomagnesemia (Acute) Acute electrocardiogram changes (Acute) Nonsustained supraventricular tachycardia (Acute) Acute electrocardiogram changes (Acute) Fall (Acute) Laceration of scalp (Acute) Elevated troponin (Acute) Syncope (Chronic) Arthritis of left knee (Chronic) Osteoarthritis of knee (Acute 06/04/14) H/O surgical procedure (Chronic) a. cataract surgery b. 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
--- NOTE | 2024-01-18 10:06 | IN_ITS ---
PT Notes Visit Reasons: Right Intertrochanteric Hip Fracture Physical Therapy Inpatient Initial Evaluation Date: 01/18/2024 Referring Doctor: SOLO Gibson PT Orders: PT CONSULT: S/p Ortho Srugery Precautions: Fall. Standard. Per Dr. Post: WBAT on the R LE with AD. Patient Profile/Admitting Diagnosis: Patient with diagnosis of displaced R intertrochanteric fracture sustained on 01/17/2024 and is S/P R intramedullary nail fixation on postoperative day 1. PMHX: All Active Problems (Updated 01/17/24 @ 13:49 by Nicolasa Foster NP) Hypertension (Chronic) Hypokalemia (Acute) Fracture, intertrochanteric, right femur (Acute) Lip injury (Acute) Hypomagnesemia (Acute) Acute electrocardiogram changes (Acute) Nonsustained supraventricular tachycardia (Acute) Acute electrocardiogram changes (Acute) Fall (Acute) Laceration of scalp (Acute) Elevated troponin (Acute) Syncope (Chronic) Arthritis of left knee (Chronic) Osteoarthritis of knee (Acute 06/04/14) H/O surgical procedure (Chronic) a. cataract surgery b. 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 SHAFER s/p manipulation 02/24/2018 Social History/Home Situation: Lives with in a handicap-accessible home with a ramp to enter. hearing impaired and not able to help patient physically. Independent with all aspects of ADLs prior to surgery. Equipment Owned/DME: Wheelchair, ramp, walking poles, FWW, SPC, grab bars Subjective: Fearfula dn anxious of moving and of falling again. Reported 8-9/10 in the R hip and thigh with movement. Nurse Barbara gave patient Tramadol to help with movement. Complained of being lightheaded but vital signs were WNL Objective: General Observation: Mepilex Silver dressings over surgical incisions. Caldwell catheter in place. IV through R UE. TEDS to b legs. Mental Status: Alert and oriented as to person, place, time, and purpose. Able to pay attention, focus, and respond appropriately. Pain: As above Vital Signs: WNL as taken by Nurse Barbara boston patient complained of dizziness ROM: Right Lower Extremity: Hip flexion about 30 degrees actively. Hip abduction unable due to pain. Knee flexion about 45 degrees actively. Knee extension -30 degrees. Ankle dorsiflexion WFL. Ankle plantarflexion WFL. Left Lower Extremity: Hip flexion WFL. Hip abduction WFL. Knee flexion WFL. Ankle dorsiflexion WFL. Ankle plantarflexion WFL. Strength: Right Lower Extremity: Hip flexors 2-/5. Hip abductors 1/5. Knee flexors 3-/5. Knee extensors 3-/5. Ankle dorsiflexors 4-/5. Ankle plantarflexors 4-/5. Left Lower Extremity: Hip flexors 4/5. Hip abductors 4/5. Knee flexors 5/5. Knee extensors 4/5. Ankle dorsiflexors 4-/5. Ankle plantarflexors 4-/5. Bed Mobility/Transfers: Moderate cueing provided for use of B hands as needed for support, movement sequence, AD management, and posture to reduce fall risk and minimize pain report. Supine to sit moderate assist Sit to supine moderate assist Sit to stand moderate assist of 2 with FWW Stand to sit moderate assist of 2 with FWW Bed to reclining chair moderate assist of 2 with FWW Gait: Was only willing to try out sidestepping and turning from edge of bed to bedside recliner using FWW with assist of two for this session. Complained of pain at 7-8/10 with weight bearing but no LOB. Positioned the bedside recliner so that patient pivoted and side sidestepped with her good, non-surgical side. Highly favored the R LE-- leaned back and to the R throughout despite verbal cueing. Was initially lightheaded but Nurse Barbara measured VS to be within normal limits. Patient did not want to do any further after this activity. Balance: Static Sitting: Fair Dynamic Sitting: Fair Static Standing: Poor Dynamic Standing: Poor Special Tests: Mobility Limitations Standardized Measure [facility] AM-PAC 6 clicks Basic Mobility Inpatient Short Form: Raw Score: 12 CMS Score: 69% deficit Informed Consent/Education: Patient was instructed in purpose of PT consult and plan of care. Agreeable to proceed with established PT POC to achieve personal goals. ASSESSMENTt: Patient is fearful of falling and in pain due to postoperative status, has just been medicated for pain by Nurse Jimenez which allowed patient to stand up and transfer to onto bedside recliner. Needs use of FWW and assist of 2 for safety as patient becomes anxious and fearful of falling. Patient presents with clinical signs and symptoms consistent with current/admitting diagnoses that have resulted to mobility limitations, gait instability, generalized weakness, and overall ADL decline as demonstrated by the following impairment level findings: 1. Decreased strength to R LE major muscle groups 2. Impaired sitting/standing balance 3. Impaired activity tolerance 4. Limitation of joint range of motion in R hip and knee 5. Pain in R hip and thigh Impairments are contributing to the following functional limitations: 1. Decline in bed mobility skills 2. Decline in transfer skills 3. Difficulty with ambulation without assistive device and physical assistance 4. Increased completion time for mobility ADL performance 5. Increased risk for falls 6. Difficulty with managing steps alone safely Patient is assessed as a 04274 moderate complexity based on the following: History: 83-year-old female with past medical history as indicated above Examination: Demonstrable impairment in strength, balance, and mobility level with underlying impairments and functional limitations as exhibited above as well as deficit score of 69% utilizing the [facility] Mobility Inpatient Short Form Presentation: Evolving Decision Makin moderate complexity Goals: Goals X1 week 1. Supine-Sit independent 2. Sit-Supine independent 3. Sit-Stand independent 4. Stand-Sit independent with FWW 5. Bed-Chair independent with FWW 6. Chair-Bed independent with FWW 7. Independent gait on level surface with use of FWW for at least 300 feet without report of pain nor dyspnea 9. Independent with home exercise program 10. Good static and dynamic standing balance/tolerance Plan of Care/Treatment Plan: 1-2x/day, 7 days/week x 1 week. Plan of care has been reviewed with the VAULT ATTENDANT providing the service under Physical Therapy direction. Initiate Physical Therapy intervention for pain management as needed, strengthening, bed mobility, transfers, gait, stairs, balance training, and use of assistive device. DISCHARGE RECOMMENDATIONS: [] Home with no services [] [] Home with services [specify] [] Home with outpatient PT [] [] SNF for continued rehabilitation [] [] Client Relations Specialist Care [] [] SNF versus LTC based on ability to participate and progress [] [X] Short-term SNF vs PT based on progress towards goals TREATMENT CODE/TIME: 51284 x 20 minutes for 1 unit, 74873 x 28 minutes for 2 units (10:06-10:57). Thank you for the opportunity to participate in the care of this patient. Adelia Brennan PT, DPT, CLT [facility] [place], [place]
[2024-01-18] MEDS: traMADol 50 MG TAB PO ×2 (10:19→15:51)
--- NOTE | 2024-01-18 10:58 | PGE_ITS ---
Date of Service Date of service: 01/18/24 Time of Service: 10:58 Assessment and Plan Assessment and plan (1) Fracture, intertrochanteric, right femur: Status: Acute Assessment and plan: POD #1 Intramedullary Fixation of Proximal right Femur Fracture continue routine postoperative care PT/OT pain management bowel management (2) Hypokalemia: Status: Resolved Assessment and plan: Potassium 4.1 (3) Hypertension: Status: Chronic Assessment and plan: Monitor VS Stable - continue metoprolol (4) DVT prophylaxis: Status: Acute Assessment and plan: enoxaparin daily per orthopedics at discharge (5) Discharge planning issues: Status: Acute Assessment and plan: anticipate discharge to short term rehab vs home with services discussed with DR Wiggins Subjective Subjective Patient reports: still having pain, tolerating liquids well, no bowel movement and afebrile; denies shortness of breath Exam Const General: cooperative, comfortable and no acute distress Nutritional Appearance: average body habitus Orientation: alert, awake and oriented x3 HENMT Head: normal to inspection, normocephalic and atraumatic Face and sinus: normal facial exam Eyes General: appearance normal, both eyes and all related structures Chest Chest: normal inspection of the chest Resp Effort & Inspection: normal respiratory effort and able to speak in complete sentences Cardio Rate: regular rate Rhythm: regular rhythm GI Inspection: normal to inspection Skin General skin exam: ecchymosis Lesions: other (surgical dressing C/D/I, ) Rashes: no rashes Neuro General: patient alert and patient awake Motor: muscle tone normal throughout Objective Last Vital Signs Temp 37.6 C H 01/18/24 07:29 Pulse 70 01/18/24 07:29 Resp 18 01/18/24 07:29 BP 119/91 H 01/18/24 07:29 Pulse Ox 96 01/18/24 07:29 Laboratory Results - last 24 hr 01/17/24 01/17/24 01/18/24 13:37 16:53 06:11 WBC 8.80 10.46 RBC 3.48 L 2.91 L Hgb 11.8 10.0 L Hct 35.3 L 29.5 L MCV 101 H 101 H MCH 33.9 H 34.4 H MCHC 33.4 33.9 RDW 11.7 11.9 Plt Count 179 157 MPV 9.8 9.9 Immature Gran % 0.5 0.3 Neutrophils % 88.7 70.3 Lymphocytes % 6.8 19.4 Monocytes % 3.8 9.7 Eosinophils % 0.0 0.1 Basophils % 0.2 0.2 Nucleated RBC % 0.0 0.0 Absolute Neutrophils 7.81 H 7.36 H Absolute Lymphocytes 0.60 L 2.03 Absolute Monocytes 0.33 1.01 H Absolute Eosinophils 0.00 0.01 Absolute Basophils 0.02 0.02 Sodium 136 133 L Potassium 3.6 4.1 Chloride 99 99 Carbon Dioxide 27.9 24.7 Anion Gap 9.1 9.3 BUN 12 20 H Creatinine 0.7 0.9 Est GFR (CKD-EPI 2020) 86.83 64.23 Glucose 151 H 151 H Calcium 8.4 L 8.1 L Magnesium 1.9 1.9 Urine Color Yellow Urine Clarity Clear Urine pH 6.0 Ur Specific [place] 1.020 Urine Protein Negative Urine Ketones 40 H Urine Blood Trace-intact H Urine Nitrite Negative Urine Bilirubin Negative Urine Urobilinogen 0.2 Ur Leukocyte Esterase Trace H Urine RBC 0-2 Urine WBC 3-5 Ur Epithelial Cells Rare Urine Crystals Negative Urine Bacteria Negative Urine Casts Negative Urine Mucus Negative Ur Culture Indicated? No Urine Glucose Negative Time Spent with Patient Time Spent with Patient: 35-49 minutes Time was spent: preparing to see the patient(eg.review tests), obtaining and/or reviewing separately otained hiistory, ordering medications,tests, procedures, indepentently interpreting results and counseling the patient
[2024-01-18 11:12] VITALS: BP 117/58; PULSE 72; RESP 20; TEMP 36.9; O2SAT 95
--- NOTE | 2024-01-18 13:04 | W.PM.PROGNOT ---
Date of Service Date of service: 01/18/24 Time of Service: 12:55 Assessment and Plan Assessment and plan (1) Fracture, intertrochanteric, right femur: Status: Acute Assessment and plan: Gricelda is an 82-year-old female status post intervention nail fixation of a right intertrochanteric hip fracture. She is doing well. I think she may show some significant primas over the next day or 2. However, she does currently require significant assistance for any mobilization which would preclude her from going home although her house does seem to be quite accessible. I would continue to work with physical therapy and nursing. The best to make judgment the next day or 2 about her discharge disposition. Continue to treat pain for mobilization with tramadol or anything else considered by the medicine team. Weightbearing as tolerated. Safe to resume anticoagulation, aspirin acceptable. Subjective Subjective Interval history since last seen: Gricelda reports be doing well. She no longer has the exquisite pain that she had with any motion about the right leg. She did have difficulty mobilizing today, utilizing assist x 2. However, she is sitting in the chair. She denies chest pain or shortness of breath. She denies any new numbness or tingling. She does feel very tight. Exam Narrative Exam Narrative: Sitting up in the chair. No acute distress. Alert and oriented x 3. Evaluation of the right lower extremity shows clean dry and intact dressings. She is very rigid. Actively she resists most attempts at passive range of motion. However, she does not seem to have any significant pain with internal and external rotation of the hip. She has active ankle dorsiflexion and plantarflexion as well as great toe extension and flexion. Baseline decreased sensation in the foot although grossly intact over the deep and superficial peroneal nerve and tibial nerve. Minimal swelling. Minimal ecchymosis. Objective Last Vital Signs Temp 36.9 C 01/18/24 11:12 Pulse 72 01/18/24 11:12 Resp 20 01/18/24 11:12 BP 117/58 L 01/18/24 11:12 Pulse Ox 95 01/18/24 11:12 Laboratory Results - last 24 hr 01/17/24 01/17/24 01/18/24 13:37 16:53 06:11 WBC 8.80 10.46 RBC 3.48 L 2.91 L Hgb 11.8 10.0 L Hct 35.3 L 29.5 L MCV 101 H 101 H MCH 33.9 H 34.4 H MCHC 33.4 33.9 RDW 11.7 11.9 Plt Count 179 157 MPV 9.8 9.9 Immature Gran % 0.5 0.3 Neutrophils % 88.7 70.3 Lymphocytes % 6.8 19.4 Monocytes % 3.8 9.7 Eosinophils % 0.0 0.1 Basophils % 0.2 0.2 Nucleated RBC % 0.0 0.0 Absolute Neutrophils 7.81 H 7.36 H Absolute Lymphocytes 0.60 L 2.03 Absolute Monocytes 0.33 1.01 H Absolute Eosinophils 0.00 0.01 Absolute Basophils 0.02 0.02 Sodium 136 133 L Potassium 3.6 4.1 Chloride 99 99 Carbon Dioxide 27.9 24.7 Anion Gap 9.1 9.3 BUN 12 20 H Creatinine 0.7 0.9 Est GFR (CKD-EPI 2020) 86.83 64.23 Glucose 151 H 151 H Calcium 8.4 L 8.1 L Magnesium 1.9 1.9 Urine Color Yellow Urine Clarity Clear Urine pH 6.0 Ur Specific [place] 1.020 Urine Protein Negative Urine Ketones 40 H Urine Blood Trace-intact H Urine Nitrite Negative Urine Bilirubin Negative Urine Urobilinogen 0.2 Ur Leukocyte Esterase Trace H Urine RBC 0-2 Urine WBC 3-5 Ur Epithelial Cells Rare Urine Crystals Negative Urine Bacteria Negative Urine Casts Negative Urine Mucus Negative Ur Culture Indicated? No Urine Glucose Negative Time Spent with Patient Time Spent with Patient: 25-34 minutes Time was spent: preparing to see the patient(eg.review tests), indepentently interpreting results and counseling the patient
[2024-01-18] MEDS: HYDROmorphone 2 MG/ML SYR 0.5 MG IVP (13:31)
[2024-01-18] MEDS: Enoxaparin 40 MG/0.4 ML SYR SC (14:26)
[2024-01-18] MEDS: Ondansetron 4 MG/2 ML VIAL IVP (14:31)
--- NOTE | 2024-01-18 15:10 | CHAPLAIN ---
Gricelda was up in the chair when I visited. She had hip surgery yesterday. 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 She said she's had to slow down a bit with her work and that is frustrating for her. Her was visiting when I stopped in. Gricelda said she doesn't attend yazidi but prays often.
[2024-01-18 15:35] VITALS: BP 103/56; PULSE 60; RESP 18; TEMP 37.7; O2SAT 93
--- NOTE | 2024-01-18 16:38 | PTTR_ITS ---
PT Notes Visit Reasons: Right Intertrochanteric Hip Fracture Physical Therapy Inpatient Treatment Note Date: 01/18/2024 Precautions: Fall. Standard. Per Dr. Post: WBAT on the R LE with AD. Subjective: Patient given by Nurse Jimenez with Tramadol half an hour before session, she also received IV Dilaudid about 2.5 hours before the Tramadol intake. Patient is glad she did better overall. Did report pain but not as much as she did this morning. Objective: General Observation: Mepilex Silver dressings over surgical incisions. Caldwell catheter in place. IV through R UE. TEDS to b legs. Mental Status: Alert and oriented as to person, place, time, and purpose. Able to pay attention, focus, and respond appropriately. Pain: As above Vital Signs: WNL as taken by Nurse Barbara boston patient complained of dizziness Bed Mobility/Transfers: Moderate cueing provided for use of B hands as needed for support, movement sequence, AD management, and posture to reduce fall risk and minimize pain report. Supine to sit moderate assist Sit to stand minimal assist of 2 with FWW Stand to sit minimal assist Bed to reclining chair minimal assist of 2 with FWW Gait: 30 feet with walker minimal assist of Pt and wheelchair follow of COMMERCIAL LOAN SPECIALIST Naz with posture much improved, favoring of R side way less, and weight bearing on B LE more symmetric. Pain only at 4-5/10 at surgical site. Denied lightheadedness, chest pain, and headche. Balance: Static Sitting: Fair Dynamic Sitting: Fair Static Standing: Poor Dynamic Standing: Poor ASSESSMENTt: Patient is fearful of falling and in pain due to postoperative status, has just been medicated for pain by Nurse Jimenez which allowed patient to stand up and transfer to onto bedside recliner. Needs use of FWW and assist of 2 for safety as patient becomes anxious and fearful of falling. Patient presents with clinical signs and symptoms consistent with current /admitting diagnoses that have resulted to mobility limitations, gait instability, generalized weakness, and overall ADL decline as demonstrated by the following impairment level findings: 1. Decreased strength to R LE major muscle groups 2. Impaired sitting/standing balance 3. Impaired activity tolerance 4. Limitation of joint range of motion in R hip and knee 5. Pain in R hip and thigh Impairments are contributing to the following functional limitations: 1. Decline in bed mobility skills 2. Decline in transfer skills 3. Difficulty with ambulation without assistive device and physical assistance 4. Increased completion time for mobility ADL performance 5. Increased risk for falls 6. Difficulty with managing steps alone safely Plan of Care/Treatment Plan: 1-2x/day, 7 days/week x 1 week. Plan of care has been reviewed with the HOOP DRIVING MACHINE OPERATOR HELPER providing the service under Physical Therapy direction. Initiate Physical Therapy intervention for pain management as needed, strengthening, bed mobility, transfers, gait, stairs, balance training, and use of assistive device. --Continue to premedicate for pain for succeeding sessions. DISCHARGE RECOMMENDATIONS: [] Home with no services [] [] Home with services [specify] [] Home with outpatient PT [] [] SNF for continued rehabilitation [] [] Care Home Care [] [] SNF versus LTC based on ability to participate and progress [] [X] Short-term SNF vs PT based on progress towards goals TREATMENT CODE/TIME: 56273 x 26 minutes for 2 units (16:38-17:04).
[2024-01-18 19:26] VITALS: BP 108/50; PULSE 58; RESP 18; TEMP 36.9; O2SAT 93
[2024-01-19 00:03] VITALS: BP 127/58; PULSE 65; RESP 18; TEMP 36.6; O2SAT 96
[2024-01-19 04:19] VITALS: BP 142/60; PULSE 80; RESP 16; TEMP 36.8; O2SAT 96
[2024-01-19 07:38] VITALS: BP 130/61; PULSE 70; RESP 16; TEMP 37.6; O2SAT 95
[2024-01-19] MEDS: Acetaminophen 325 MG TAB PO ×2 (07:55→13:20)
[2024-01-19] MEDS: Enoxaparin 40 MG/0.4 ML SYR SC (07:55)
[2024-01-19] MEDS: traMADol 50 MG TAB PO ×2 (07:56→13:20)
[2024-01-19] MEDS: Aspirin E.C. 81 MG TABEC PO (07:56)
[2024-01-19] MEDS: Metoprolol CR 25 MG TABCR 12.5 MG PO ×2 (07:56→21:19)
--- NOTE | 2024-01-19 09:43 | PDOC.CMPRO ---
Date of service: 01/19/24 Time of Service: 09:43 Care Management Progress Note Progress Note Text Progress Note Text: Gricelda was sitting up in her chair when CM met with her. She stated that she is doing much better today than yesterday. She reported that she had a lot of pain working with PT yesterday, but today she felt much better and was able to work well with PT. CM discussed the recommendation for her to have HH services vs SNF for short term rehab. She stated very clearly that she does not want to go to SNF, and that she feels that she will be safe returning home with HH services. She stated that her daughter is traveling from [place] and will stay with her for a week while she recovers, and her home is accessible. Per MD, she will likely be ready for discharge tomorrow. CM will continue to follow. Discharge Potential Discharge Needs: PT Evaluation and Surgical F/U Appt Anticipated Barriers to Discharge: Medical Status Patient/Family Education Needs: Review discharge instructions, discuss Ask Me Three Transportation: Private vehicle Plan: Anticipate Gricelda will return home with new HH services vs SNF, depending on mobility and progression toward her goals. She plans to transport via private vehicle by family. She will follow up with her surgeon, and her discharge plan of care. CM will continue to follow. SDOH(Care Management) Screening Will the Patient Participate in the Screening?: Declined to provide Social Determinants of Health Comments(SDOH Details): patient declines to answer
--- NOTE | 2024-01-19 10:36 | PTTR_ITS ---
PT Notes Visit Reasons: Right Intertrochanteric Hip Fracture Physical Therapy Inpatient Treatment Note Date: 01/19/2024 Precautions: Fall. Standard. Per Dr. Post: WBAT on the R LE with AD. Subjective: AM SESSION: Nurse Chu premedicated patient around 9 AM today and worked well with patient's performance this morning. Patient reported some clamminess in the middle of the walk and felt safe to sit down and rest. PM SESSION: Worsening clamminess after walking 50 feet. Afraid of it getting worse and falling again. Objective: General Observation: Mepilex Silver dressings over surgical incisions. Caldwell catheter in place. IV access through R UE. TEDS to B legs. Mental Status: Alert and oriented as to person, place, time, and purpose. Able to pay attention, focus, and respond appropriately. Pain: As above Vital Signs: Closely monitored by nursing staff Bed Mobility/Transfers: AM SESSION: Moderate cueing provided for use of B hands as needed for support, feet placement, movement sequence, AD management, and posture to reduce fall risk and minimize pain report. Supine to sit stand by assist Sit to stand contact guard assist, edge of bed at about 22 inches high from floor Stand to sit minimal assist Bed to reclining chair conatct guard assist Gait: AM SESSION: 50 feet + 50 feet with front-wheeled walker with contact guard assist and wheelchair follow of PT. Posture much improved, favoring of R side way less, and weight bearing on B LE more symmetric. Moderate verbal cueing provided for increasing R knee flexion to limit circumduction of R LE as this appeared to cause less pain. Readjusted walker height to allow for better weight distribution and posture. PM SESSION: 50 feet with front-wheeled walker with contact guard assist and wheelchair follow of PT. Needed to sit down as patient complained of worsening clamminess and dizziness. Nurs Chu updated. BP taken at 100/56 and Hr 67 bpm. Patient was then wheeled back to room and assisted with wheelchair to bedside recliner transfer with contact jarrett assist of PT and Nurse Sage for safety. Balance: Static Sitting: Fair Dynamic Sitting: Fair Static Standing: Fair Dynamic Standing: Fair THERA EX SESSION IN PM: Facilitated safe and correct performance of HEp below. Access Code: [email or web address] URL: [email or web address] Date: 01/19/2024 Prepared by: Adelia Brennan Exercises - Quad Set - 1 x daily - 7 x weekly - 1 sets - 10 reps - 5 hold - Supine Heel Slide - 1 x daily - 7 x weekly - 1 sets - 10 reps - 5 hold - Supine Hip Abduction AROM - 1 x daily - 7 x weekly - 1 sets - 10 reps - 5 hold - Supine Gluteal Sets - 1 x daily - 7 x weekly - 1 sets - 10 reps - 5 hold - Supine Ankle Pumps - 1 x daily - 7 x weekly - 1 sets - 10 reps - 5 hold - Seated March - 1 x daily - 7 x weekly - 1 sets - 10 reps - 5 hold ASSESSMENT: Patient now more able to efficiently and safely move with improved pain tolerance. Activity tolerance improving, ability to put weight on R increasing. Anxiety over movement much less. Need more work on gradually increasing and recruiting R hip flexors/abductors and R knee extensors/flexors to further improve safety and efficiency of gait while increasing mobility independence and self-reliance. Afternoon session was limited by report of worsening clamminess and fearfulness of falling. Nurse Sage suspected that symptoms may be related to the Tramadol and will try just use Tylenol for tomorrow's PT session. Plan of Care/Treatment Plan: 1-2x/day, 7 days/week x 1 week. Plan of care has been reviewed with the [employer] providing the service under Physical Therapy direction. Initiate Physical Therapy intervention for pain management as needed, strengthening, bed mobility, transfers, gait, stairs, balance training, and use of assistive device. --Continue to pre-medicate for pain for succeeding sessions. DISCHARGE RECOMMENDATIONS: [] Home with no services [] [] Home with services [specify] [] Home with outpatient PT [] [] SNF for continued rehabilitation [] [] Penitentiary Care [] [] SNF versus LTC based on ability to participate and progress [] [X] PT vs short-term SNF based on progress towards goals TREATMENT CODE/TIME: AM SESSION: 22172 X 41 minutes for 3 units (9:21-10:02). PM SESSION: 90643 X 20 minutes for 1 unit, 22110 x 13 minutes for 1 unit (13:59-14:32).
[2024-01-19 11:15] VITALS: BP 119/57; PULSE 60; RESP 16; TEMP 36.7; O2SAT 98
--- NOTE | 2024-01-19 14:19 | PGE_ITS ---
Date of Service Date of service: 01/19/24 Time of Service: 14:19 Assessment and Plan Assessment and plan (1) Fracture, intertrochanteric, right femur: Status: Acute Assessment and plan: POD #2 Intramedullary Fixation of Proximal right Femur Fracture continue routine postoperative care PT/OT pain management bowel management (2) Hypokalemia: Status: Resolved Assessment and plan: Potassium 4.1 yesterday not checked today (3) Hypertension: Status: Chronic Assessment and plan: Monitor VS Stable - continue metoprolol (4) DVT prophylaxis: Status: Acute Assessment and plan: enoxaparin daily per orthopedics at discharge (5) Discharge planning issues: Status: Acute Assessment and plan: Home with PT services discussed with DR Wiggins Subjective Subjective Patient reports: no new complaints, pain is less, tolerating a regular diet, voiding w/o difficulty, no flatus, bowel movement and afebrile; denies flatus, diarrhea, nausea or vomiting Interval history since last seen: Patient states she is doing better this morning and was able to participate with PT. She feels that she can go home with home health services and does not want to go to a SNF. Ortho agrees. Exam Const General: cooperative, comfortable and no acute distress Nutritional Appearance: average body habitus Orientation: alert, awake and oriented x3 HENMT Head: normal to inspection, normocephalic and atraumatic Face and sinus: normal facial exam Eyes General: appearance normal, both eyes and all related structures Chest Chest: normal inspection of the chest Resp Effort & Inspection: normal respiratory effort and able to speak in complete sentences Cardio Rate: regular rate Rhythm: regular rhythm GI Inspection: normal to inspection Other: Caldwell catheter discontinued Skin General skin exam: ecchymosis Lesions: other (surgical dressing C/D/I, ) Rashes: no rashes Neuro General: patient alert and patient awake Motor: muscle tone normal throughout Objective Last Vital Signs Temp 36.7 C 01/19/24 11:15 Pulse 60 01/19/24 11:15 Resp 16 01/19/24 11:15 BP 119/57 L 01/19/24 11:15 Pulse Ox 98 01/19/24 11:15 Time Spent with Patient Time Spent with Patient: 25-34 minutes Time was spent: preparing to see the patient(eg.review tests), ordering medications,tests, procedures, referring, communicating with other health housekeeper child care, indepentently interpreting results, counseling the patient and care coordination
[2024-01-19 15:19] VITALS: BP 133/62; PULSE 57; RESP 16; TEMP 36.3; O2SAT 95
[2024-01-19] MEDS: Polyethylene Glycol 3350 17 GM PACKET PO (16:52)
--- NOTE | 2024-01-19 18:48 | W.PM.PROGNOT ---
Date of Service Date of service: 01/19/24 Time of Service: 12:05 Assessment and Plan Assessment and plan (1) Fracture, intertrochanteric, right femur: Status: Acute Assessment and plan: Gricelda is an 83-year-old female who is postop day #2 status post intramedullary nail fixation of a right hip fracture. She is made good progress. I expect that she will continue to be improving with her ability to ambulate and transfer independently which should allow her to discharge to home with home health services. Dressings are without signs of concern. No notable complications. At this point I default the discharge disposition to the admitting hospitalist team and physical therapy. She may ambulate weightbearing as tolerated. I would recommend home health services. All sutures are buried within the skin. Mepilex dressings for at least 1 week. I will see her back in the office in 4 weeks. Please send with DVT prophylaxis, recommend at least aspirin 81 mg twice daily x 4 weeks. Subjective Subjective Interval history since last seen: Gricelda is doing much better today. She was able to ambulate with nursing support in the hallway. She feels her pain is controlled. She feels that she is able to move the leg more. No issues with the wound. No fevers no chills. No chest pain or shortness of breath. Exam Narrative Exam Narrative: Sitting up in the chair. No acute distress. Alert and orient x 3. Right lower extremity dressings are clean dry and intact. She is able to tolerate some active external rotation and internal rotation and flexion of the right hip. She does seem to be in a slightly internally rotated posterior which is similar to the contralateral side. She is able to demonstrate active hip flexion, knee extension, knee flexion, great toe extension, great toe flexion. Objective Last Vital Signs Temp 37 C 01/20/24 00:49 Pulse 70 01/20/24 00:49 Resp 16 01/20/24 00:49 BP 134/71 01/20/24 00:49 Pulse Ox 96 01/20/24 00:49 Time Spent with Patient Time Spent with Patient: <25 minutes Time was spent: preparing to see the patient(eg.review tests), obtaining and/or reviewing separately otained hiistory and counseling the patient
[2024-01-19 19:52] VITALS: BP 124/63; PULSE 60; RESP 19; TEMP 36.7; O2SAT 94
[2024-01-20 00:49] VITALS: BP 134/71; PULSE 70; RESP 16; TEMP 37; O2SAT 96
[2024-01-20] MEDS: Acetaminophen 325 MG TAB PO (00:49)
[2024-01-20 07:14] LABS: Abs Immature Grans 0.02 10^3/uL (0.0-0.06); Absolute Basophil Count 0.04 10^3/uL (0.0-0.2); Absolute Eosinophil Count 0.07 10^3/uL (0.0-0.7); Absolute Lymphocyte Count 2.05 10^3/uL (1.2-3.4); Absolute Monocyte Count 0.99 10^3/uL (0.1-0.8); Absolute Neutrophil Count 4.94 10^3/uL (1.2-6.7); Basophils % 0.5 %; Eosinophils % 0.9 %; HCT 26.7 % (36.0-46.0); HGB 9.1 g/dL (11.2-15.7); Immature Grans % 0.2 %; Lymphocytes % 25.3 %; MCH 34.5 pg (27.0-33.0); MCHC 34.1 % (32.0-36.0); MCV 101 fL (80-95); MPV 10.5 fL (8.0-11.0); Monocytes % 12.2 %; Neutrophils % 60.9 %; Platelet Count 187 10^3/uL (130-400); RBC 2.64 10^6/uL (3.93-5.22); RDW 11.7 % (11.7-14.6); RDW-SD 42.8 fL; WBC 8.11 10^3/uL (4.4-10.8)
[2024-01-20 07:24] LABS: Anion Gap 5.7 mmol/L (3-11); BUN 9 mg/dL (7-18); CO2 31.3 mmol/L (21.0-32.0); CREATININE 0.6 mg/dL (0.55-1.02); Calcium 8.5 mg/dL (8.5-10.1); Chloride 100 mmol/L (98-107); Estimated GFR 90.12 (mL/min/1.73m2); Glucose 120 mg/dL (74-106); Magnesium 1.9 mg/dL (1.8-2.4); Potassium 4.5 mmol/L (3.5-5.1); Sodium 137 mmol/L (136-145)
[2024-01-20 08:20] VITALS: BP 128/54; PULSE 69; RESP 15; TEMP 37.3; O2SAT 95
--- NOTE | 2024-01-20 08:31 | PTTR_ITS ---
PT Notes Visit Reasons: Right Intertrochanteric Hip Fracture Date: 01/20/24 PRECAUTIONS: Fall. Standard. Per Dr. Post: WBAT on the R LE with AD. SUBJECTIVE: Pt in bed when approached for therapy, pt reports she is looking forwrd to going home today, reports pain on incision site and is still having a difficult time with AROM of the RLE during bed mobility. OBJECTIVE: ? PAIN: incision site VITALS: monitored by nursing ? Therapeutic Activities 98273: Direct one-on-one instruction in dynamic activities to improve functional performance. ?? BED MOBILITY/TRANSFERS? Rolling L/R: supervision Supine-sit: ? supervision? Sit-supine: ? supervision ? Sit-stand: ? ?CGA ? Stand-sit: ??CGA ? Bed-Chair:? ? CGA? Chair-bed: CGA Provided skilled cues and instruction on performance and technique throughout. Gait Training 01954: Direct one-on-one instruction and skilled instruction in: Employing an assistive device Modified weight-bearing status Movement sequencing Turning and movement with proper form Provided verbal cues for equipment management and technique Provided instruction in gait pattern Patient education regarding pacing and breathing techniques to maximize activity tolerance? GAIT? Assistive Device: ??FWW ? Weight bearing: WBAT Assist: ? SBA WC follow? Distance:?? ?60', 100' ? Deviation: ? ? antalgic gait? STAIRS:? ? Bilateral handrail step to gait pattern 2x6, 3x4 CGA? Therapeutic Exercises 91307: Direct one-on-one instruction in therapeutic exercises to develop strength, endurance, range of motion and flexibility. Exercises Access Code: [email or web address] URL: [email or web address] Date: 01/19/2024 Prepared by: Adelia Brennan Exercises - Quad Set - 1 x daily - 7 x weekly - 1 sets - 10 reps - 5 hold - Supine Heel Slide - 1 x daily - 7 x weekly - 1 sets - 10 reps - 5 hold - Supine Hip Abduction AROM - 1 x daily - 7 x weekly - 1 sets - 10 reps - 5 hold - Supine Gluteal Sets - 1 x daily - 7 x weekly - 1 sets - 10 reps - 5 hold - Supine Ankle Pumps - 1 x daily - 7 x weekly - 1 sets - 10 reps - 5 hold - Seated March - 1 x daily - 7 x weekly - 1 sets - 10 reps - 5 hold ? Provided skilled instruction in proper exercise performance Provided skilled manual cues to facilitate proper muscle recruitment and/or form: ASSESSMENT:?Pt did not report feeling nausea during gait training, pt stayed in recliner post session. reports pain is manageable post session PLAN: Continue with balance training, global strengthening and general conditioning for improved safety, mobility and activity tolerance until pt is ready for DC. TREATMENT CODE/TIME: 88154n1, 47025w7, [id number] 45mins ( 8:50-9:35am)
[2024-01-20] MEDS: Aspirin E.C. 81 MG TABEC PO (09:38)
[2024-01-20] MEDS: Metoprolol CR 25 MG TABCR 12.5 MG PO (09:38)
[2024-01-20] MEDS: Enoxaparin 40 MG/0.4 ML SYR SC (09:39)
--- NOTE | 2024-01-20 09:41 | DSE_ITS ---
Date of service: 01/20/24 Time of Service: 09:41 DS: Diagnosis Discharge Diagnosis (1) Fracture, intertrochanteric, right femur: Status: Acute Discharge Plan Disposition Patient Disposition: Home W/Home Health Services Condition: Improving Discharge Details Reason For Visit: Right Intertrochanteric Hip Fracture Admit Date/Time: 01/17/24 09:00 Admit Provider: Yan Tovar Attending Provider: Rob Wiggins Primary Care Provider: Ramone Dennison Hospital Course Hospital Course: This 83 years old female patient with a past medical history significant for hypertension, right knee replacement, and left intertrochanteric hip fracture repair was transferred to [facility] on 01/17/2024 from [facility] where she was diagnosed with a displaced intertrochanteric proximal femur fracture on the right side. The patient fell while walking her dog and landing on her right hip on 01/16/2024; reported pain to the right hip and inability to stand or ambulate. The orthopedic surgeon was consulted on arrival and scheduled surgery for 01/17/2024 in the afternoon. At the time the patient had denied hitting her head, syncope, chest pain, shortness of breath, gastrointestinal or genitourinary symptoms. The orthopedic surgeon, Dr. Post, completed a right intramedullary fixation of the proximal femur fracture on 01/17/24. At the time her H&H was 10 and 29.5 and a chemistry was unremarkable. The right hip x-ray showed placement of an intramedullary jason and nail in the proximal femur for fracture fixation with satisfactory alignment. H&H remains 9.1 and 26.7 with unremarkable chemistry blood work today. The patient work with physical therapy status post surgery and recommendation is for home health physical therapy. The patient will also need home health nursing for Mepilex dressing change every 3 days to the surgical site. The patient will have anticoagulation with aspirin 81 mg twice a day for 4 weeks. The patient will take scheduled acetaminophen for 5 days and as needed tramadol twice a day if the pain is unrelieved. Bowel management regimen was ordered for the patient. The patient will need a follow-up with orthopedic services in 4 weeks and the patient will have a follow-up with her primary care practitioner within 7 days of discharge. The patient asked if she could take Tylenol-PM . The patient was educated on not taking Tylenol-PM while on the ordered drug regimen discussed at discharge. Discussed with Dr. Pizarro Home Meds and New Rx's Prescriptions: New acetaminophen 500 mg tablet 500 mg PO TID Qty: 30 0RF aspirin [Adult Aspirin Regimen] 81 mg tablet,delayed release (DR/EC) 81 mg PO BID Qty: 58 0RF tramadol 25 mg tablet 25 mg PO Q12H PRN PRNQty: 8 0RF Rx Instructions: Take only if the scheduled Acetaminophen/Tylenol does not relieve the pain. You might need to take it prior to PT docusate sodium [Colace] 100 mg capsule 100 mg PO BID Qty: 30 0RF Rx Instructions: Take in the morning and in the evening, until you have a bowel movement, then take it only as needed for constipation Continued calcium carb and citrate-vitD3 [Citracal-D3 Slow Release] 1 EACH tablet extended release 1 ea PO BID multivitamin [Daily Multi-Vitamin] 1 EACH tablet 1 tab PO DAILY glucosam-chond ac-wwhtmp-or ac 1 EACH capsule 2 cap PO DAILY metoprolol succinate 25 mg tablet extended release 24 hr PO Patient Comments: Take 1/2 tablet by mouth twice daily ,have a dash of salt prior to taking; do not crush or chew Held aspirin 81 mg Tablet,Delayed Release (Dr/Ec) 81 mg PO DAILY Qty: 30 0RF Hold Instructions: Resume on 02/20/24. Consult your provider for resumption Discharge Instructions Stand Alone Forms: Nursing Discharge Form Referrals: Ramone Dennison [Primary Care Provider] - (Please call the office to set up a hospital follow up within 7 days. ) Terrance Post MD [ [facility] STAFF PHYSICIAN] - 02/17/24 10:45 am () Activity:: Activity as Tolerated Equipment/Supplies:: Walker Diet:: As Tolerated Discharge Orders Discharge Orders: Discharge Order (Routine); Ordered 01/20/24 Ordered By: Ananya Telles DS: Summary Time Spent with Patient providing and/or coordinating discharge services: Greater than 30 minutes Status at Discharge Functional status at discharge: uses cane/walker Overall status at discharge: patient is progressing back to baseline Mental Status: mental status grossly normal Speech and Movement: speech and movement normal Mood: congruent mood Affect: normal affect Quality:SDOH Health Related Social Needs: No Data to Display Exam Narrative Exam Narrative: Constitutional The patient is sitting in chair comfortable without acute distress Neuro:alert and oriented X 4, non-focal Resp: Clear breath sounds Cardio: regular rhythm, S1, S2, bilateral radial and dorsalis pedis pulses are positive GI: Abdomen is not distended, soft and non tender, bowel sounds are present Integumentary:Mepilex dressing to right hip is dry, clean and intact Extremities:positive flexion and extensions to right toes, ext. is warm, w good perfusion with minimal edema Psych: RASS 0, congruent mood and normal affect. Psych Mental Status: mental status grossly normal Speech and Movement: speech and movement normal Mood: congruent mood Affect: normal affect DS: Data Vitals/I&O Vitals and I&O: Vital Signs Temperature 37.3 C 01/20/24 08:20 Temperature Source Temporal Artery Scan 01/20/24 08:20 Pulse 69 01/20/24 08:20 Pulse Rhythm Regular 01/19/24 20:00 Pulse 70 01/17/24 16:01 Respiratory Rate 15 01/20/24 08:20 Respiratory Effort Normal 01/19/24 20:00 Respiratory Depth Normal 01/19/24 20:00 Respiratory Pattern Normal 01/19/24 20:00 Blood Pressure 128/54 L 01/20/24 08:20 Blood Pressure Mean 88 01/17/24 16:01 Pulse Oximetry 95 01/20/24 08:20 Respiratory End-tidal CO2 30 01/17/24 16:01 Oxygen Delivery Method Room Air 01/20/24 08:20 Oxygen Flow Rate 0 01/20/24 08:20 Pain Level 0 01/20/24 08:20 Comment see flow sheet for vitals 01/17/24 11:06 Intake & Output 01/19/24 01/19/24 01/20/24 11:59 23:59 11:59 Intake Total 250 / 250 Output Total 2500 / 2950 450 / 2950 950 / 950 Balance -2500 / -2700 -200 / -2700 -950 / -950 Intake: Oral 250 / 250 Output: Urine 2500 / 2950 450 / 2950 950 / 950 Other: Urine Color Yellow Yellow Yellow Urine Appearance Clear Clear Clear Urine Odor None None None Comment ASSISTED TO TOILET BY THIS RN AND BRADLEY LORD VIA WALKER. ASSISTED BACK TO BED VIA WALKER BY THIS RN AND BRADLEY LORD Voiding Methods Indwelling Catheter Toilet Toilet Data Completed and Pending Labs on day of discharge: Labs from last 24 hours 01/20/24 06:30 WBC 8.11 RBC 2.64 L Hgb 9.1 L Hct 26.7 L MCV 101 H MCH 34.5 H MCHC 34.1 RDW 11.7 Plt Count 187 MPV 10.5 Immature Gran % 0.2 Neutrophils % 60.9 Lymphocytes % 25.3 Monocytes % 12.2 Eosinophils % 0.9 Basophils % 0.5 Nucleated RBC % 0.0 Absolute Neutrophils 4.94 Absolute Lymphocytes 2.05 Absolute Monocytes 0.99 H Absolute Eosinophils 0.07 Absolute Basophils 0.04 Sodium 137 Potassium 4.5 Chloride 100 Carbon Dioxide 31.3 Anion Gap 5.7 BUN 9 Creatinine 0.6 Est GFR (CKD-EPI 2020) 90.12 Glucose 120 H Calcium 8.5 Magnesium 1.9 PFSH All Active Problems (Updated 01/20/24 @ 10:02 by Ananya Telles APRN) Discharge planning issues (Acute) DVT prophylaxis (Acute) Hypertension (Chronic) Fracture, intertrochanteric, right femur (Acute) Lip injury (Acute) Hypomagnesemia (Acute) Acute electrocardiogram changes (Acute) Nonsustained supraventricular tachycardia (Acute) Acute electrocardiogram changes (Acute) Fall (Acute) Laceration of scalp (Acute) Elevated troponin (Acute) Syncope (Chronic) Arthritis of left knee (Chronic) Osteoarthritis of knee (Acute 06/04/14) H/O surgical procedure (Chronic) a. cataract surgery b. 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
[2024-01-20] MEDS: Polyethylene Glycol 3350 17 GM PACKET PO (10:31)
[2024-01-20] MEDS: Docusate Sodium 100 MG CAP 200 MG PO (10:31)
--- NOTE | 2024-01-20 10:32 | PDOC.HHF2F_ITS ---
Home Health Referral Home Health Orders Clinical synopsis of why skilled professionals are needed: This 83 years old female patient with a past medical history significant for hypertension, right knee replacement, and left intertrochanteric hip fracture repair was transferred from [facility] where she was diagnosed with a displaced intertrochanteric proximal femur fracture on the right side to [facility] on 01/17/2024. The patient fell while walking her dog and landing on her right hip on 01/16/2024; reported pain to the right hip and inability to stand or ambulate. The orthopedic surgeon was consulted and scheduled surgery for 01/17/2020 4 in the afternoon. At the time the patient had denied hitting her head, syncope, chest pain, shortness of breath, gastrointestinal or genitourinary symptoms. The orthopedic surgeon, Dr. Post completed a right intramedullary fixation of the proximal femur fracture on 01/17/24. At the time her H&H was 10 and 29.5 and a chemistry was unremarkable. The right hip x-ray showed placement of an intramedullary jason and nail in the proximal femur for fracture fixation with satisfactory alignment. H&H remains 9.1 and 26.7 with unremarkable chemistry blood work today. The patient work with physical therapy status post surgery and recommendation is for home health physical therapy. The patient will also need home health nursing for Mepilex dressing change every 3 days to the surgical site. The patient will have anticoagulation with aspirin 81 mg twice a day for 4 weeks. The patient will take scheduled acetaminophen for 5 days and as needed tramadol twice a day if the pain is unrelieved. Bowel management regimen was ordered for the patient. The patient will need a follow-up with orthopedic services in 4 weeks and the patient will have a follow-up with her primary care practitioner within 7 days of discharge. Discussed with Dr. Pizarro Medical diagnosis necessitation home health referral: The patient work with physical therapy status post surgery and recommendation is for home health physical therapy. The patient will also need home health nursing for Mepilex dressing change every 3 days to the surgical site for one week. Registered Nurse: Check all that apply Assess for exacerbation of medical condition, instruct patient/caregivers on signs and symptoms to report for early detection: Ordered (Mepilex dressing change every 3 days to the surgical site for one week, observe for S&S of infection) Physical Therapist: Check all that apply Increase strength & endurance for safe mobility at home: Ordered To design/establish home maintenance program: Ordered Fall reduction therapy program for patient with history of frequent falls: Ordered Home safety evaluation and teaching/gait training including stair management (if applicable): Ordered Encounter Date and Reason: I certify that a FTF encounter for this patient was performed on January 20, 2024 and that such encounter was related to the primary reason the patient requires home health services. The encounter was conducted in the following manner: * By me as the certifying physician, NIGHT CLUB MANAGER, PA or * By an inpatient physician, NIGHT CLUB MANAGER or PA during an inpatient stay who communicated findings to me, Certification And Authentication I certify that I composed the above information based on my clinical judgment relating to this patient's medical condition and, if applicable, clinical findings communicated to me by the NPP or inpatient physician who performed the FTF encounter. Name of Provider that will be monitoring home health services: Ramone Dennison
[2024-01-20 10:58] VITALS: BP 134/57; PULSE 68; RESP 16; TEMP 37.2; O2SAT 96
--- NOTE | 2024-01-20 11:29 | PDOC.CMDIS ---
Date of service: 01/20/24 Time of Service: 11:29 LACE Index Scoring Tool Questions: Length of Stay (in days): 3 Was the patient admitted via the E.D.?: Yes E.D. Visits: 0 Answers: Total Score: 6 Risk of Readmission: Low Risk Care Management Discharge Plan Reason for Hospitalization: Right Intertrochanteric Hip fracture Discharge Plan: Gricelda will return home today with new orders for HH RN, PT. Her will drive her home via private vehicle. Her daughter will be staying with her temporarily to assist while she transitions home. She will follow up with Ortho, her PCP, and her discharge plan of care. She is happy to be going home. Patient/Family Education Needs: Review discharge instructions and limitations, discussion of self care needs including ask me three. Services Needed at Discharge: Home Health Care Services (new HH RN, PT) SDOH Health Related Social Needs: No Data to Display
== END 2024-01-20 14:02 | disposition home health service (06) | DRG 481 ==
PROVIDERS: Nurse Practitioner Family; Student in an Organized Health Care Education/Training Program; Admitting Provider Family Medicine; PCP Family Medicine; Visit Provider Family Medicine
PROC: 0QS606Z Reposition Right Upper Femur with Intramedullary Internal Fixation Device, Open Approach (ICD-10-PCS; CPT 27245; principal; 2024-01-17 14:45)
DX: S72.141A Displaced intertrochanteric fracture of right femur, initial encounter for closed fracture (principal); I47.10 Supraventricular tachycardia, unspecified; I10 Essential (primary) hypertension; E87.6 Hypokalemia; E83.42 Hypomagnesemia; Z96.651 Presence of right artificial knee joint; Z87.891 Personal history of nicotine dependence; W01.0XXA Fall on same level from slipping, tripping and stumbling without subsequent striking against object, initial encounter; Y93.K1 Activity, walking an animal
CPT/HCPCS: 27245; 00123; 36415; 80048; 97110; 97116; 97161; 97530; 99222; J1650; 73501; 81003; 81015; 83735; 85025; 93005; 93010; 99231; 99232; 99239; J0131; J0690; J1100; J1170; J1885; J2001; J2405; J2704; J3480

== ENCOUNTER 2024-02-17 11:28 | Outpatient (CLI) | payer MEDICARE, SELFPAY ==
--- NOTE | 2024-02-17 10:30 | DI.RAD_ITS ---
Exam(s) XR HIP RT AP LAT ONLY EXAM: XR HIP RT AP LAT ONLY CLINICAL HISTORY: right femur fracture. TECHNIQUE: 2D digital imaging was performed. Two images were obtained. AP and lateral views were ob tained. COMPARISON: CR XR Hip 2-3 Views Right from 01/16/2024 XA XR HIP RT IN OR from 01/17/2024 FINDINGS: There is again seen internal fixation of the comminuted intertrochanteric fracture of the right hip. Given the slight changes in obliquity there does not appear to be any significant change in alignmen t of the orthopedic hardware or major fracture components. The right hip is intact. Mild joint spac e narrowing is seen. Vascular calcifications are present. IMPRESSION: Stable postoperative changes. DATA REPOSITORY: RADIATION DOSE DELIVERED:
== END 2024-02-17 11:29 | disposition home or self-care (01) ==
LOC: DIORS 11:29
PROVIDERS: PCP Family Medicine; Referring Provider Family Medicine; Visit Provider Physician Assistant
DX: S72.141D Displaced intertrochanteric fracture of right femur, subsequent encounter for closed fracture with routine healing; X58.XXXD Exposure to other specified factors, subsequent encounter
CPT/HCPCS: 73502

== ENCOUNTER 2024-04-12 12:03 | Outpatient (CLI) | payer MEDICARE, SELFPAY ==
--- NOTE | 2024-04-12 11:23 | DI.RAD_ITS ---
Exam(s) XR HIP RT AP LAT ONLY EXAM: XR HIP RT AP LAT ONLY CLINICAL HISTORY: S/P IM NAIL R HIP. TECHNIQUE: 2D digital imaging was performed. Two views COMPARISON: CR XR HIP RT AP LAT ONLY from 02/17/2024 FINDINGS: BONES: There has been no change in the alignment of the hardware in the proximal right femur. Fractu re alignment is unchanged and shows interval increase in healing. No acute fracture is present. No b laura destructive lesion is seen. JOINTS: No dislocation present. Mild to moderate degenerative changes of the right hip joint. SOFT TISSUE: Vascular calcifications. IMPRESSION: Increased healing at proximal femoral fracture. Hardware unchanged. DATA REPOSITORY: RADIATION DOSE DELIVERED:
== END 2024-04-12 12:04 | disposition home or self-care (01) ==
LOC: DIORS 12:03
PROVIDERS: PCP Family Medicine; Visit Provider Student in an Organized Health Care Education/Training Program
DX: S72.141D Displaced intertrochanteric fracture of right femur, subsequent encounter for closed fracture with routine healing (principal); X58.XXXD Exposure to other specified factors, subsequent encounter
CPT/HCPCS: 73502

== ENCOUNTER 2024-05-24 11:39 | Outpatient (CLI) | payer MEDICARE, SELFPAY ==
--- NOTE | 2024-05-24 11:15 | DI.RAD_ITS ---
Exam(s) XR HIP RT AP LAT ONLY EXAM: XR HIP RT AP LAT ONLY INDICATION: S/P IM FIXATION. COMPARISON: CR XR HIP RT AP LAT ONLY from 04/12/2024 TECHNIQUE: 2D digital imaging was performed. Two views. FINDINGS: Stable fracture and hardware alignment. Continued fracture healing. No new abnormalities. DATA REPOSITORY: RADIATION DOSE DELIVERED:
== END 2024-05-24 11:40 | disposition home or self-care (01) ==
LOC: DIORS 11:39
PROVIDERS: PCP Family Medicine; Referring Provider Family Medicine; Visit Provider Student in an Organized Health Care Education/Training Program
DX: S72.141D Displaced intertrochanteric fracture of right femur, subsequent encounter for closed fracture with routine healing (principal); X58.XXXD Exposure to other specified factors, subsequent encounter
CPT/HCPCS: 99213; 73502

== ENCOUNTER 2024-07-19 15:40 | Outpatient (CLI) | payer MEDICARE, SELFPAY ==
--- NOTE | 2024-07-19 11:05 | DI.RAD_ITS ---
Exam(s) XR HIP RT AP LAT ONLY EXAM: XR HIP RT AP LAT ONLY CLINICAL HISTORY: F/U HIP FX. TECHNIQUE: 2D digital imaging was performed. Two views COMPARISON: XA XR HIP RT IN OR from 01/17/2024 CR XR HIP RT AP LAT ONLY from 02/17/2024 CR XR HIP RT AP LAT ONLY from 04/12/2024 CR XR HIP RT AP LAT ONLY from 05/24/2024 FINDINGS: BONES: No stable alignment of the previously noted hardware in the proximal right femur. Stable frac ture alignment. Some interval healing no bony destructive lesion is seen. JOINTS: No dislocation present. SOFT TISSUE: . vascular calcifications. IMPRESSION: Stable fracture and hardware alignment. DATA REPOSITORY: RADIATION DOSE DELIVERED:
== END 2024-07-19 15:41 | disposition home or self-care (01) ==
LOC: DIORS 15:41
PROVIDERS: PCP Family Medicine; Referring Provider Family Medicine; Visit Provider Physician Assistant
DX: S72.141D Displaced intertrochanteric fracture of right femur, subsequent encounter for closed fracture with routine healing (principal); X58.XXXD Exposure to other specified factors, subsequent encounter
CPT/HCPCS: 99213; 73502

== ENCOUNTER 2025-01-07 10:14 | Outpatient (CLI) | payer MEDICARE, SELFPAY ==
--- NOTE | 2025-01-07 10:00 | DI.RAD_ITS ---
Exam(s) XR HIP RT COMPLETE AP PELVIS EXAM: XR HIP RT COMPLETE AP PELVIS CLINICAL HISTORY: ANNUAL F/U R IM NAIL. TECHNIQUE: 2D digital imaging was performed of the right hip. Three images were obtained. AP pelvis and lateral right hip views were obtained. COMPARISON: CR XR HIP RT AP LAT ONLY from 07/19/2024 FINDINGS: BONES: There is again seen an intramedullary jason transfixing an old healed right hip femoral fracture. The orthopedic hardware appears intact. No suspicious lucencies are seen around the orthopedic hardware. There is also an intramedullary nail seen in the left femur. This is incompletely imaged. No bony destructive lesion is seen. JOINTS: No dislocation present. There is mild joint space narrowing of the hips bilaterally. SOFT TISSUE: Atherosclerotic calcifications are seen. IMPRESSION: Stable old right femoral fracture and orthopedic hardware. DATA REPOSITORY: RADIATION DOSE DELIVERED:
== END 2025-01-07 10:15 | disposition home or self-care (01) ==
LOC: DIORS 10:14
PROVIDERS: PCP Family Medicine; Referring Provider Family Medicine; Visit Provider Student in an Organized Health Care Education/Training Program
DX: S72.141D Displaced intertrochanteric fracture of right femur, subsequent encounter for closed fracture with routine healing (principal); X58.XXXD Exposure to other specified factors, subsequent encounter
CPT/HCPCS: 99213; 73502

== ENCOUNTER 2025-01-22 08:53 | Emergency (ER) | payer MEDICARE, SELFPAY ==
[2025-01-22 08:46] VITALS: BP 136/122; PULSE 73; RESP 15; TEMP 37.3; O2SAT 93
--- NOTE | 2025-01-22 09:00 | DI.RAD_ITS ---
Exam(s) XR PELVIS AP XR FEMUR LT XR FEMUR RT EXAM: XR PELVIS AP CLINICAL HISTORY: Hip pain. TECHNIQUE: 2D digital imaging was performed. Single AP view. COMPARISON: CR PELVIS AP from 04/08/2015 CR XR Hip 2-3 Views Right from 01/16/2024 CR XR HIP RT AP LAT ONLY from 07/19/2024 CR XR HIP RT COMPLETE AP PELVIS from 01/07/2025 CR XR FEMUR RT from 01/22/2025 CR XR FEMUR LT from 01/22/2025 FINDINGS: BONES: There are new nondisplaced fractures of the left superior and inferior pubic rami. The sacrum is partially obscured by overlying stool and bowel gas. No visible sacral fracture. No bony destructive lesion is seen. Hardware is again noted in both proximal femurs. Old bilateral proximal femoral fractures. JOINTS: No dislocation present. The SI joints and pubic symphysis are not widened. There are mild degenerative changes of both hip joints. Right knee prosthesis is partially included on the field view. The left knee shows [id number]-mp-[id number] degenerative changes. SOFT TISSUE: Vascular calcifications. IMPRESSION: Nondisplaced fractures of the left superior and inferior pubic rami. Old bilateral femoral fractures with hardware in place. No fractures are noted distally in the femurs. DATA REPOSITORY: RADIATION DOSE DELIVERED:
[2025-01-22 09:16] LABS: Abs Immature Grans 0.03 10^3/uL (0.0-0.06); HCT 40.1 % (36.0-46.0); HGB 13.6 g/dL (11.2-15.7); Immature Grans % 0.4 %; MCH 33.3 pg (27.0-33.0); MCHC 33.9 % (32.0-36.0); MCV 98 fL (80-95); MPV 9.7 fL (8.0-11.0); Platelet Count 172 10^3/uL (130-400); RBC 4.08 10^6/uL (3.93-5.22); RDW 11.8 % (11.7-14.6); RDW-SD 42.7 fL; WBC 8.34 10^3/uL (4.4-10.8)
[2025-01-22 09:33] LABS: Anion Gap 10.1 mmol/L (3-11); BUN 12 mg/dL (7-18); CO2 27.9 mmol/L (21.0-32.0); Calcium 8.8 mg/dL (8.5-10.1); Chloride 101 mmol/L (98-107); Estimated GFR 89.56 (mL/min/1.73m2); Glucose 111 mg/dL (74-106); Potassium 3.4 mmol/L (3.5-5.1); Sodium 139 mmol/L (136-145)
[2025-01-22 09:39] LABS: Creatine Kinase 92 U/L (26-192)
--- NOTE | 2025-01-22 10:02 | W.ED.GENAD ---
Discharge Plan Disposition Patient Disposition: Home Discharge Details Clinical Impression: Multiple closed stable fractures of ramus of left pubis Primary Care Provider: Ramone Dennison ED Provider: Rob Thomas Home Meds and New Rx's Prescriptions: Continued calcium carb, citrate-vit D3 [Citracal-D3 Slow Release] 1 EACH tablet extended release 1 ea PO BID multivitamin [Daily Multi-Vitamin] 1 EACH tablet 1 tab PO DAILY glucosam-chond ik-wdzyqa-td ac 1 EACH capsule 2 cap PO DAILY aspirin 81 mg Tablet,Delayed Release (Dr/Ec) 81 mg PO DAILY Qty: 30 0RF metoprolol succinate 25 mg tablet extended release 24 hr 25 mg PO DAILY Patient Comments: Take 1/2 tablet by mouth twice daily ,have a dash of salt prior to taking; do not crush or chew acetaminophen 500 mg tablet 500 mg PO TID Qty: 30 0RF Discharge Instructions Instructions: Pelvic fracture Additional Instructions: You are seen in the emergency department for your hip pain. You are found to have fractures of your pubic rami on the left. If you develop worsening pain cannot eat or drink is felt nausea or vomiting or have any other concerns please return to the emergency department. Discharge Data Discharge Date/Time-TO BE ENTERED AT DEPARTURE: 01/22/25 15:11 HPI General Date/Time Provider Initiated Documentation: 01/22/25 09:01. HPI Narrative: MDM Primary survey intact. Reassuring shock index. On secondary survey patient has difficulty ambulating. My suspicion is relatively low for hip fracture given her limited pain with passive range of motion. Will initiate screening x-rays and if unremarkable will complete an ambulatory trial. If patient has difficulty ambulating we will consider more sensitive CT scan. No pain out of proportion to suggest necrotizing soft tissue infection. No dysuria nor frequency to suggest UTI. No head strike to suggest increased risk for intracranial hemorrhage. No preceding chest pain so my suspicion is low for ACS so did not obtain an ECG. Given fall yesterday will obtain a CK level to assess for rhabdomyolysis. She is neurologically intact so I am not suspicious for CVA as I did not feel that the patient required CT scan of her head. Furthermore her dizziness has resolved and she reports that this is a somewhat chronic challenge for her so I do not feel that her presentation represents a posterior circulation CVA as I do not feel that she requires an MRI of her head. 10 AM CBC shows macrocytosis without anemia. No thrombocytopenia. No leukocytosis. Basic metabolic panel showing very mild hypokalemia. Reassuring CK level. Mild hyperglycemia but no anion gap??not consistent with DKA. Reassuring CT scan. 01/23 Late charting due to patient care. Patient was found to have multiple closed fractures of her left superior and inferior pubic rami. I was in touch with Dr. Post from orthopedics. He advised weightbearing as tolerated and outpatient management following PT evaluation. Patient was evaluated by physical therapy in the ED. Her pain was controlled. I signed outpatient paperwork for the patient at home physical therapy. We discussed that she should return for any worsening pain or any recurrent falls. She was given a walker. She was discharged with empiric trial of expectant outpatient management. HPI This is a female with a history of hypertension presenting with a fall. History provided by the patient. Patient arrived via EMS. The patient experienced a fall on 01/21/2025 while carrying bags into her house, attributing the incident to not lifting her feet properly. She does not believe she hit her head or lost consciousness during the fall. She has been unable to walk since the fall, which prompted her to seek medical attention this morning. She reports no difficulty in breathing or chest pain. She also reports no fevers or painful urination. She has undergone 2 hip surgeries in the past. The patient experienced dizziness, which is not unusual for her. She was able to walk to the bathroom but found it painful and has been avoiding food and drink due to discomfort. She is not currently experiencing dizziness. The patient has right hip pain on palpation and radiating pain in the left hip towards the knee. She is on medication for high blood pressure but did not take it this morning. PAST SURGICAL HISTORY: Hip surgeries x2 Exam General: Well-appearing in no acute distress speaking in complete sentences. Head: Normocephalic, atraumatic. Eye: Extraocular eye movements intact. No conjunctival injection. No scleral icterus. Ear, nose, mouth, throat: Grossly normal inspection. Normal voice, handling secretions normally. Neck: Trachea midline. Cardiovascular: Well-perfused distal extremities. Regular rate and rhythm. Soft. Nontender. Respiratory: Nonlabored respiration. Clear lungs bilaterally. Gastrointestinal: Nondistended abdomen. Musculoskeletal: No significant pain with passive range of motion of bilateral lower extremities. Pelvis stable. No tenderness to the femurs knees nor lower extremities. Intact PT and DP pulses bilaterally. 5 out of 5 bilateral strength dorsi and plantarflexion. Skin: Normal for age and race, grossly normal temperature and turgor. No acute rash. Neurologic: Alert and appropriate, no apparent acute deficits. GCS 15. Psychiatric: Mood and manner are appropriate. Grooming and personal hygiene are appropriate. Related Data Home Medications ?Medication ?Instructions ?Recorded ?Confirmed rfrmtxyvks-vfwpfutglp-kkvdqgyx-hyalur 2 cap PO DAILY 12/31/14 01/22/25 ac 375 mg-300 mg-175 mg-2 mg cap multivitamin (Daily Multi-Vitamin 1 tab PO DAILY 12/31/14 01/22/25 tablet) calcium ER 600 mg (as carb,cit)-D3 1 ea PO BID 04/08/15 01/22/25 12.5 mcg (500 unit) tablet, ext.rel (Citracal-D3 Slow Release) aspirin 81 mg tablet,delayed 81 mg PO DAILY #30 tabs 06/08/22 01/22/25 release metoprolol succinate 25 mg 25 mg PO DAILY 01/17/24 01/22/25 tablet,extended release 24 hr acetaminophen 500 mg tablet 500 mg PO TID #30 tabs 01/20/24 01/22/25 Previous Rx's ?Medication ?Instructions ?Recorded aspirin 81 mg tablet,delayed 81 mg PO DAILY #30 tabs 06/08/22 release acetaminophen 500 mg tablet 500 mg PO TID #30 tabs 01/20/24 Allergies Allergy/AdvReac Type Severity Reaction Status Date / Time No Known Allergies Allergy Unverified 01/22/25 08:50 General Stated Complaint: Fall/Non TraumaCriteria LINDSEY: 3 Course Vital Signs Vital signs: Vital Signs Temperature 37.3 C 01/22/25 08:46 Pulse 73 01/22/25 08:46 Respiratory Rate 15 01/22/25 08:46 Blood Pressure 136/122 H 01/22/25 08:46 Pulse Oximetry 93 01/22/25 08:46 Temperature 37.3 C 01/22/25 08:46 Temperature Source Oral 01/22/25 08:46 Pulse 73 01/22/25 08:46 Respiratory Rate 15 01/22/25 08:46 Blood Pressure 136/122 H 01/22/25 08:46 Blood Pressure Position Supine 01/22/25 08:46 Pulse Oximetry 93 01/22/25 08:46 Oxygen Delivery Method Room Air 01/22/25 08:46 Oxygen Flow Rate 0 01/22/25 08:46 Pain Level 0 01/22/25 08:58 Comment Pain increases with movement and difficulty ambulating 01/22/25 08:46 Lab/Test Results Lab/Test Results: Laboratory Tests Range/Units 01/22/25 01/22/25 09:01 09:09 WBC (4.4-10.8) 10^3/uL 8.34 RBC (3.93-5.22) 10^6/uL 4.08 Hgb (11.2-15.7) g/dL 13.6 Hct (36.0-46.0) % 40.1 MCV (80-95) fL 98 H MCH (27.0-33.0) pg 33.3 H MCHC (32.0-36.0) % 33.9 RDW (11.7-14.6) % 11.8 Plt Count (130-400) 10^3/uL 172 MPV (8.0-11.0) fL 9.7 Immature Gran % % 0.4 Neutrophils % % 78.7 Lymphocytes % % 14.0 Monocytes % % 6.1 Eosinophils % % 0.4 Basophils % % 0.4 Nucleated RBC % (0.0-0.3) % 0.0 Absolute Neutrophils (1.2-6.7) 10^3/uL 6.57 Absolute Lymphocytes (1.2-3.4) 10^3/uL 1.17 L Absolute Monocytes (0.1-0.8) 10^3/uL 0.51 Absolute Eosinophils (0.0-0.7) 10^3/uL 0.03 Absolute Basophils (0.0-0.2) 10^3/uL 0.03 Sodium (136-145) mmol/L 139 Potassium (3.5-5.1) mmol/L 3.4 L Chloride (98-107) mmol/L 101 Carbon Dioxide (21.0-32.0) mmol/L 27.9 Anion Gap (3-11) mmol/L 10.1 BUN (7-18) mg/dL 12 Creatinine (0.55-1.02) mg/dL 0.6 Est GFR (CKD-EPI 2020) (mL/min/1.73m2) 89.56 Glucose (74-106) mg/dL 111 H Calcium (8.5-10.1) mg/dL 8.8 Creatine Kinase (26-192) U/L 92 C-Reactive Protein Cancelled PFSH All Active Problems (Updated 01/22/25 @ 11:25 by Rob Thomas MD) Multiple closed stable fractures of ramus of left pubis (Acute) Hypertension (Chronic) Fracture, intertrochanteric, right femur (Acute 01/16/24) S/P IM nail fixation: 01/17/2024 Lip injury (Acute) Hypomagnesemia (Acute) Acute electrocardiogram changes (Acute) Nonsustained supraventricular tachycardia (Acute) Acute electrocardiogram changes (Acute) Fall (Acute) Laceration of scalp (Acute) Elevated troponin (Acute) Syncope (Chronic) Arthritis of left knee (Chronic) Osteoarthritis of knee (Acute 06/04/14) H/O surgical procedure (Chronic) a. cataract surgery b. 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
--- NOTE | 2025-01-22 10:32 | DI.RAD_ITS ---
Exam(s) XR PELVIS AP XR FEMUR LT XR FEMUR RT EXAM: XR PELVIS AP CLINICAL HISTORY: Hip pain. TECHNIQUE: 2D digital imaging was performed. Single AP view. COMPARISON: CR PELVIS AP from 04/08/2015 CR XR Hip 2-3 Views Right from 01/16/2024 CR XR HIP RT AP LAT ONLY from 07/19/2024 CR XR HIP RT COMPLETE AP PELVIS from 01/07/2025 CR XR FEMUR RT from 01/22/2025 CR XR FEMUR LT from 01/22/2025 FINDINGS: BONES: There are new nondisplaced fractures of the left superior and inferior pubic rami. The sacrum is partially obscured by overlying stool and bowel gas. No visible sacral fracture. No bony destructive lesion is seen. Hardware is again noted in both proximal femurs. Old bilateral proximal femoral fractures. JOINTS: No dislocation present. The SI joints and pubic symphysis are not widened. There are mild degenerative changes of both hip joints. Right knee prosthesis is partially included on the field view. The left knee shows [id number] degenerative changes. SOFT TISSUE: Vascular calcifications. IMPRESSION: Nondisplaced fractures of the left superior and inferior pubic rami. Old bilateral femoral fractures with hardware in place. No fractures are noted distally in the femurs. DATA REPOSITORY: RADIATION DOSE DELIVERED:
--- NOTE | 2025-01-22 10:32 | DI.RAD_ITS ---
Exam(s) XR CHEST 1V IN DI DEPT EXAM: XR CHEST 1V IN DI DEPT CLINICAL HISTORY: History of fall TECHNIQUE: 2D digital imaging was performed. COMPARISON: CR XR Chest 1 View from 01/16/2024 FINDINGS: LUNGS: Clear. No pleural abnormality seen. HEART: Enlarged. AORTA: tortuous. BONES: Unremarkable for age. No visible rib fractures. Soft tissues: Unremarkable. IMPRESSION: No acute findings. DATA REPOSITORY: RADIATION DOSE DELIVERED:
[2025-01-22] MEDS: Ibuprofen 400 MG TAB PO (13:25)
[2025-01-22] MEDS: Acetaminophen 500 MG TAB 1000 MG PO (13:25)
--- NOTE | 2025-01-22 14:09 | PT.INIE ---
PT Notes Visit Reasons: [facility] Physical Therapy Evaluation Date: 01/22/25 Referring Doctor: Dr. Thomas PT Orders: PT CONSULT: WBAT left pubic rami fx Precautions: WBAt Patient Profile/Admitting Diagnosis: Justine is an 84 year old female who presented to ER after a fall at home yesterday resulting in left pubic rami fx. PT consult received for gait training and discharge planning. Social History/Home Situation: Patient resides in a private home with her . Typically ambulates with 4WW. 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 Previous fall just one year ago resulted in hip fx. Slept in recliner following her hip fx. Was able to get in/out of bed on her own this am. Equipment Owned/DME: 4WW Subjective: Justine states that she is feeling fine as long as she is still. She is agreeable to PT evaluation and treatment. Objective: General Observation: Resting in bed with IV in LUE. Mental Status: A&Ox3 Pain: 0/10 at rest. States fine with ambulation. ROM: Right Upper Extremity: WFL Left Upper Extremity: WFL Right Lower Extremity: Functionally demonstrates 70* hip flexion, 20* AB. Knee and ankle motion WFL. Left Lower Extremity: Functionally demonstrates 70* hip flexion, 20* AB. Knee and ankle motion WFL. Strength: Right Upper Extremity: Shoulder flexion 3/5 or greater. Triceps 4/5. Left Upper Extremity: Shoulder flexion 3/5 or greater. Triceps 4/5. Right Lower Extremity: Hip flexion 3-/5. Quads 3/5. Ankle DF 3/5. Left Lower Extremity: Hip flexion 3-/5. Quads 3/5. Ankle DF 3/5. Sensation: intact distally Bed Mobility/Transfers: supine-sit: min A to LLE sit-supine: min A to LLE sit-stand: CGA stand-sit: SBA Gait: Ambulates 10' with FWW, CGA initially, progressing to SBA as she demonstrates safe ambulation. Demonstrates slow, cautious gait with heavy reliance on UE support to FWW, but with well managed pain throughout. Balance: Static Sitting: normal Dynamic Sitting: good Static Standing: fair Dynamic Standing: fair Special Tests: Mobility Limitations Standardized [facility] clicks Basic Mobility Inpatient Short Form: Raw Score: 21 Standardized Score: 50.25 CMS Score: 29% impairment Informed Consent/Education: Patient instructed in purpose of PT consult and plan of care. Treatment: Initial evaluation (15848) Therapeutic activities (93143 x 1) Instructed in gait and transfer training. Requires cues for hand placement and management. Patient was used utilizing 4 WW, which she like to resume as quickly as possible. Anticipate she will require increased support as she does require significant upper extremity support FWW. Discussed issuance of FWW for home use during acute phase of her injury, which she is agreeable to. FWW was fitted and issued. Instructed in the following exercises to facilitate improved transfers and bed mobility: LAQ 10 times Ankle pumps 10 times Assessment: Patient is an 84 year old female referred for PT consult in emergency department, where she is being medically managed for acute pubic rami fracture. Patient presents with clinical signs and symptoms consistent with diagnosis, with associated impairments in mobility. She demonstrated good safety and pain management with short distance ambulation, and demonstrated ability to get in and out of bed with minimal support. AM-PAC score supports return to community. Recommend utilization of FWW versus 4 WW for improved offloading of LLE during acute phase of healing for pubic rami fracture. This was issued today, and with use, patient demonstrates effective mobility for safe return home. She requires introduction of PT intervention upon return home to address acute mobility issues and underlying balance impairments resulting in falls. This will be best achieved through home health PT. She currently demonstrates the following impairment level findings: 1. Acute pain due to pubic rami fracture 2. Decreased hip range of motion bilaterally 3. Decreased lower extremity strength bilaterally 4. Underlying balance impairment with history of falls Impairments are contributing to the following functional limitations: 1. Requires increased external support for ambulation (requires FWW vs baseline of 4WW) 2. Decreased tolerance to community distance ambulation Patient is assessed as a Low 75009 complexity based on the following: History: as above Examination: functional limitations as above Presentation: stable Decision Making: Low complexity Plan of Care/Treatment Plan: Patient seen in emergency department. No further PT intervention required in the setting. DISCHARGE RECOMMENDATIONS: Home with home health PT TREATMENT CODE/TIME: [id number] ([id number], [id number]) Isa Dickinson, PT, DPT [facility] All Active Problems (Updated 01/22/25 @ 11:25 by Rob Thomas MD) Multiple closed stable fractures of ramus of left pubis (Acute) Hypertension (Chronic) Fracture, intertrochanteric, right femur (Acute 01/16/24) S/P IM nail fixation: 01/17/2024 Lip injury (Acute) Hypomagnesemia (Acute) Acute electrocardiogram changes (Acute) Nonsustained supraventricular tachycardia (Acute) Acute electrocardiogram changes (Acute) Fall (Acute) Laceration of scalp (Acute) Elevated troponin (Acute) Syncope (Chronic) Arthritis of left knee (Chronic) Osteoarthritis of knee (Acute 06/04/14) H/O surgical procedure (Chronic) a. cataract surgery b. 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 SHAFER s/p manipulation 02/24/2018
--- NOTE | 2025-03-19 00:21 | NUR.NOTE ---
Nursing Note: accessed chart to get contact info
== END 2025-01-22 15:11 | disposition home or self-care (01) ==
PROVIDERS: Emergency Provider Emergency Medicine; PCP Family Medicine
DX: S32.592A Other specified fracture of left pubis, initial encounter for closed fracture (principal); R42 Dizziness and giddiness; I10 Essential (primary) hypertension; W19.XXXA Unspecified fall, initial encounter
CPT/HCPCS: 99284 ×2; 36415; 73552; 80048; 82550; 97161; 97530; 71045; 72170; 85025; 86140